=== PATIENT | female | born 1955 | race Caucasian/White ===

== ENCOUNTER 2024-07-31 13:10 | Inpatient (IN) | payer MEDICARE, MEDICAID, SELFPAY ==
--- NOTE | 2024-07-30 21:28 | ECHOD_ITS ---
Reason For Study: CHF Procedure This was a 2D Doppler, Color Flow transthoracic echocardiogram. Exam performed portable in patient room. The exam was abbreviated due to the COVID 19 protocol. Left Ventricle Normal left ventricle. Left ventricular systolic function is normal. The left ventricular ejection fraction is 65 %. No regional wall motion abnormalities noted. Right Ventricle Normal RV size. Normal systolic function. Atria Normal left atrium. Normal right atrium. Mitral Valve There is mild mitral annular calcification. Tricuspid Valve Normal tricuspid valve. Mild to moderate (1-2+) tricuspid valve insufficiency. Pulmonary artery systolic pressure is 45 mmHg. Aortic Valve Trisinus/trileaflet aortic valve. Moderate focal aortic valve calcification. Pulmonic Valve Normal pulmonic valve. Great Vessels Normal aortic root. The pulmonary artery is normal size. The inferior vena cava is dilated. Pericardium/Pleural No pericardial effusion. MMode/2D Measurements & Calculations LVIDd: 4.5 cm IVSd: 1.1 cm LAV(MOD-bp): 46.1 ml LVIDs: 3.2 cm LVPWd: 1.2 cm LAV(MOD-bp) Indexed: 28.0 ml/m2 FS: 29.3 % LAV(MOD-sp2): 48.7 ml LAV(MOD-sp4): 42.1 ml SV(MOD-sp4): 54.4 ml SV(sp4-el): 57.2 ml LVAd ap4: 27.2 cm2 LVLd ap4: 7.6 cm EDV(MOD-sp4): 79.8 ml EDV(sp4-el): 82.6 ml LVAs ap4: 13.4 cm2 LVLs ap4: 6.0 cm ESV(MOD-sp4): 25.4 ml ESV(sp4-el): 25.4 ml EF(MOD-sp4): 68.2 % EF(sp4-el): 69.3 % LA A4 area: 17.6 cm2 RA A4 area: 17.4 cm2 Doppler Measurements & Calculations TR max vanessa: 304.5 cm/sec TR max P.1 mmHg ECHO/Echo Complete Interpretation Summary Normal left ventricle. Left ventricular systolic function is normal. The left ventricular ejection fraction is 65 %. Pulmonary artery systolic pressure is 45 mmHg. Ordering Physician: eGeta Lynn Referring Physician: Zuhair Trinh Performed By: Rita Kaye RCS
--- NOTE | 2024-07-30 21:48 | PCM.HP.STD ---
HPI - General General Date of Admission: 07/30/24 Date of Service: 07/30/24 Chief Complaint: Confusion. HPI Narrative The patient is a 69 y/o F w/ PMHx: Hypothyroidism, CAD s/p CABG 04/2022 and PCI potentially x 2, HFpEF, Hypothyroidism, Anxiety and Depression, COPD w/ Chronic Hypoxic Respiratory Failure (4L NC) Pulmonary HTN, HTN, HLD, Hepatic cirrhosis, CKD IIIb (reported facility prior baseline Cr 1.2) admitted to OSH on 07/27/24 following syncopal event with several days of nausea, emesis and fatigue with 1 day of eventual outside facility ED presentation no witnessed syncopal episode fortunately caught by another individual with no trauma to the head but no recollection per patient of any prodrome or what occurred as well as reported abnormal labs prompting eventual ED evaluation. Patient endorsed lightheadedness, dizziness as well as ongoing nausea in addition to constipation on a normal basis. She also reportedly eventually noted that she been having maroon-colored stools for multiple days. Patient note had recently been discharged 07/22/2024 from that same facility secondary to treatment for acute on chronic respiratory failure secondary to heart failure exacerbation discharged on Bumex at that time with during that prior admission EGD with gastritis and portal gastropathy noted with GI and cardiology evaluations at that time also. Initially upon outside facility ED evaluation blood pressures were reportedly low with systolics in the 90s with CBC at that time with WBC 13.4, hemoglobin 7.9 which is decreased from 10.2 on 07/25/2024, platelet 248, CMP with sodium 130, serum potassium 3.1, bicarb 40, BUN/creatinine 70/1.69, troponin 21, T. bili 3.50, negative COVID-19/influenza/RSV, chest x-ray with persistent bilateral basilar atelectasis with a positive Hemoccult in the ED with a type and screen as well as cross with 1 unit PRBC ordered at that time. EKG was repeated and upon repeat there were noted new ST segment depressions in the precordial leads therefore patient was admitted that time for ongoing evaluation. Patient had repeat EGD 07/28/2024 which revealed chronic gastritis with biopsy obtained and colonoscopy performed 07/29/2024 within normal colon with no evidence of any bleeding etiology. Patient reportedly had an ammonia level that was elevated and had been also started on lactulose. Patient mental status reportedly was improved per records from outside facility. Patient acute kidney injury was treated with hold on nephrotoxic medication and hydration. Patient discharged from their facility to be transitioned [facility] with diagnoses including acute kidney injury on CKD stage IIIb secondary to likely significant diuresis with recent presentation to their facility with heart failure exacerbation with creatinine at discharge reportedly 1.66, renal ultrasound unremarkable, nephrology evaluated patient there and they felt she was euvolemic with Bumex held and judicious hydration administered, acute hepatic encephalopathy with elevated ammonia upon admission of 111 requiring lactulose administration, acute on chronic anemia secondary to GI bleed although source was not obtained but guaiac was positive and there was evidence of gastritis with required PRBC transfusion per records of 2 units with discharge hemoglobin 8.9 with hold on Eliquis and aspirin therapy. Additional labs noted from review of [facility] outside records included 07/30/2024 labs magnesium 3.0, phosphorus 3.8, ammonia 15, BMP with sodium 153, potassium 4.1, chloride 116, CO2 33, anion gap 8.1, BUN/creatinine 65/1.55, glucose 176, GFR 36, calcium 9.1 with adjusted calcium 10.3, CBC with WBC 19.9, hemoglobin 8.9, MCV 97.3, platelet 207 with left shift, iron 49 low normal, TIBC 253 low normal, iron saturation 19% noted to be low, ferritin 318.5 noted to be elevated, vitamin B12 1989 noted to be elevated, folic acid 5.8 noted to be low normal. Lab trending prior to this included on07/28/2024 liver profile with AST/ALT 92/43, alk phos 104, total bilirubin 5.60, direct bilirubin 2.30, total protein 5.3, albumin 2.7, sodium 133, potassium 3.9, chloride 87, CO2 37, anion gap 12.9, BUN/creatinine 87/2.0, GFR 26. Also noted records including 07/28/2024 urinalysis with slightly cloudy appearing urine, glucose greater than 500, leukocyte urine large, urine urobilinogen and 2, urine WBCs 21-50 however in records there is no obvious listing of bacteria level and no evidence of any urine culture performed, 07/28/2024 random urine sodium less than 5, random urine potassium 46, random urine chloride 15, urine urea nitrogen random 538. 07/27/2024 hemoglobin A1c noted to be 5.0%. Also 07/28/2024 chest x-ray had worsening bibasilar opacities with questionable infiltrate versus atelectasis. Patient transitioned to [facility] as direct admission per family request as daughter lives in this area and wants her care to be local. She was also concerned that her mother was still confused and concerned also for additional possibly infectious process. [facility] Medical History (Updated 07/30/24 @ 19:[address] Geeta Lynn MD) (HFpEF) heart failure with preserved ejection fraction Anemia of chronic disease History of GI bleed PAF (paroxysmal atrial fibrillation) CAD (coronary artery disease) Chronic hypoxic respiratory failure, on home oxygen therapy COPD (chronic obstructive pulmonary disease) Former tobacco use Hypothyroidism Anxiety and depression Hepatic cirrhosis HLD (hyperlipidemia) HTN (hypertension) Chronic anemia Stage 3b chronic kidney disease Allergy/AdvReac Type Severity Reaction Status Date / Time sulfamethoxazole (From Allergy Mild Hives Verified 07/30/24 19:58 Bactrim) trimethoprim (From Bactrim) Allergy Mild Hives Verified 07/30/24 19:58 Family History (Updated 07/30/24 @ 19:[address] Geeta Lynn MD) Mother Diabetes Hypertension Heart disease CVA (cerebral vascular accident) Father Diabetes Hypertension Heart disease Uncle Kidney disease Surgical History (Updated 07/30/24 @ 20:[address] Geeta Lynn MD) History of hernia repair History of coronary artery stent placement S/P CABG (coronary artery bypass graft) Social History (Updated 07/30/24 @ 20:[address] Geeta Lynn MD) household members: none housing: long-term Smoking Status: Former smoker how long ago did patient quit smoking: Quit ~ 14 years ago, smoking 0.5-1/2 ppd since 14 years old until quit. alcohol intake: never substance use type: does not use Assessment & Plan Assessment/Plan PLAN: Plan The patient is a 69 y/o F w/ PMHx: Hypothyroidism, CAD s/p CABG 04/2022 and PCI potentially x 2, HFpEF, Hypothyroidism, Anxiety and Depression, COPD w/ Chronic Hypoxic Respiratory Failure (4L NC) Pulmonary HTN, HTN, HLD, Hepatic cirrhosis, CKD IIIb (reported facility prior baseline Cr 1.2) admitted to OSH on 07/27/24 following syncopal event with several days of nausea, emesis and fatigue with 1 day of eventual outside facility ED presentation no witnessed syncopal episode fortunately caught by another individual with no trauma to the head but no recollection per patient of any prodrome w/ extensive hospitalization with acute hepatic encephalopathy with liver cirrhosis w/ hyperbilirubinemia, DENILSON on CKD stage IIIb, ABLA on chronic anemia/Fe deficiency anemia/AOCD secondary to GI bleed w/ gastritis only noted on upper endoscopy/unremarkable lower scope with 2 u PRBC administration as well as incidentally noted ST depressions in the precordial leads with family request for transfer to [facility] as direct for her ongoing evaluation and care on 07/30/24. or what occurred as well as reported abnormal labs prompting eventual ED evaluation. Patient endorsed lightheadedness, dizziness as well as ongoing nausea in addition to constipation on a normal basis. She also reportedly eventually noted that she been having maroon-colored stools for multiple days. Patient note had recently been discharged 07/22/2024 from that same facility secondary to treatment for acute on chronic respiratory failure secondary to heart failure exacerbation discharged on Bumex at that time with during that prior admission EGD with gastritis and portal gastropathy noted with GI and cardiology evaluations at that time also. Initially upon outside facility ED evaluation blood pressures were reportedly low with systolics in the 90s with CBC at that time with WBC 13.4, hemoglobin 7.9 which is decreased from 10.2 on 07/25/2024, platelet 248, CMP with sodium 130, serum potassium 3.1, bicarb 40, BUN/creatinine 70/1.69, troponin 21, T. bili 3.50, negative COVID-19/influenza/RSV, chest x-ray with persistent bilateral basilar atelectasis with a positive Hemoccult in the ED with a type and screen as well as cross with 1 unit PRBC ordered at that time. EKG was repeated and upon repeat there were noted new ST segment depressions in the precordial leads therefore patient was admitted that time for ongoing evaluation. Patient had repeat EGD 07/28/2024 which revealed chronic gastritis with biopsy obtained and colonoscopy performed 07/29/2024 within normal colon with no evidence of any bleeding etiology. Patient reportedly had an ammonia level that was elevated and had been also started on lactulose. Patient mental status reportedly was improved per records from outside facility. Patient acute kidney injury was treated with hold on nephrotoxic medication and hydration. Patient discharged from their facility to be transitioned [facility] with diagnoses including acute kidney injury on CKD stage IIIb secondary to likely significant diuresis with recent presentation to their facility with heart failure exacerbation with creatinine at discharge reportedly 1.66, renal ultrasound unremarkable, nephrology evaluated patient there and they felt she was euvolemic with Bumex held and judicious hydration administered, acute hepatic encephalopathy with elevated ammonia upon admission of 111 requiring lactulose administration, acute on chronic anemia secondary to GI bleed although source was not obtained but guaiac was positive and there was evidence of gastritis with required PRBC transfusion per records of 2 units with discharge hemoglobin 8.9 with hold on Eliquis and aspirin therapy. Additional labs noted from review of [facility] outside records included 07/30/2024 labs magnesium 3.0, phosphorus 3.8, ammonia 15, BMP with sodium 153, potassium 4.1, chloride 116, CO2 33, anion gap 8.1, BUN/creatinine 65/1.55, glucose 176, GFR 36, calcium 9.1 with adjusted calcium 10.3, CBC with WBC 19.9, hemoglobin 8.9, MCV 97.3, platelet 207 with left shift, iron 49 low normal, TIBC 253 low normal, iron saturation 19% noted to be low, ferritin 318.5 noted to be elevated, vitamin B12 1989 noted to be elevated, folic acid 5.8 noted to be low normal. Lab trending prior to this included on07/28/2024 liver profile with AST/ALT 92/43, alk phos 104, total bilirubin 5.60, direct bilirubin 2.30, total protein 5.3, albumin 2.7, sodium 133, potassium 3.9, chloride 87, CO2 37, anion gap 12.9, BUN/creatinine 87/2.0, GFR 26. Also noted records including 07/28/2024 urinalysis with slightly cloudy appearing urine, glucose greater than 500, leukocyte urine large, urine urobilinogen and 2, urine WBCs 21-50 however in records there is no obvious listing of bacteria level and no evidence of any urine culture performed, 07/28/2024 random urine sodium less than 5, random urine potassium 46, random urine chloride 15, urine urea nitrogen random 538. 07/27/2024 hemoglobin A1c noted to be 5.0%. Also 07/28/2024 chest x-ray had worsening bibasilar opacities with questionable infiltrate versus atelectasis.
--- NOTE | 2024-07-30 21:59 | PN.HOSP_ITS ---
Hospitalist Note OSH RECORDS REVIEW SUMMARY OF RECENT HOSPITALIZATION: The patient is a 69 y/o F w/ PMHx: Hypothyroidism, CAD s/p CABG 04/2022 and PCI potentially x 2, HFpEF, Hypothyroidism, Anxiety and Depression, COPD w/ Chronic Hypoxic Respiratory Failure (4L NC) Pulmonary HTN, HTN, HLD, Hepatic cirrhosis, CKD IIIb (reported facility prior baseline Cr 1.2) admitted to OSH on 07/27/24 following syncopal event with several days of nausea, emesis and fatigue with 1 day of eventual outside facility ED presentation no witnessed syncopal episode f ortunately caught by another individual with no trauma to the head but no recollection per patient of any prodrome or what occurred as well as reported abnormal labs prompting eventual ED evaluation. Patient endorsed lightheadedness, dizziness as well as ongoing nausea in addition to constipation on a normal basis. She also reportedly eventually noted that she been having maroon-colored stools for multiple days. Patient note had recently been discharged 07/22/2024 from that same facility secondary to treatment for acute on chronic respiratory failure secondary to heart failure exacerbation discharged on Bumex at that time with during that prior admission EGD with gastritis and portal gastropathy noted with GI and cardiology evaluations at that time also. Initially upon outside facility ED evaluation blood pressures were reportedly low with systolics in the 90s with CBC at that time with WBC 13.4, hemoglobin 7.9 which is decreased from 10.2 on 07/25/2024, platelet 248, CMP with sodium 130, serum potassium 3.1, bicarb 40, BUN/creatinine 70/1.69, troponin 21, T. bili 3.50, negative COVID-19/influenza/RSV, chest x-ray with persistent bilateral basilar atelectasis with a positive Hemoccult in the ED with a type and screen as well as cross with 1 unit PRBC ordered at that time. EKG was repeated and upon repeat there were noted new ST segment depressions in the precordial leads therefore patient was admitted that time for ongoing evaluation. Patient had repeat EGD 07/28/2024 which revealed chronic gastritis with biopsy obtained and colonoscopy performed 07/29/2024 within normal colon with no evidence of any bleeding etiology. Patient reportedly had an ammonia level that was elevated and had been also started on lactulose. Patient mental status reportedly was improved per records from outside facility. Patient acute kidney injury was treated with hold on nephrotoxic medication and hydration. Patient discharged from their facility to be transitioned [facility] with diagnoses including acute kidney injury on CKD stage IIIb secondary to likely significant diuresis with recent presentation to their facility with heart failure exacerbation with creatinine at discharge reportedly 1.66, renal ultrasound unremarkable, nephrology evaluated patient there and they felt she was euvolemic with Bumex held and judicious hydration administered, acute hepatic encephalopathy with elevated ammonia upon admission of 111 requiring lactulose administration, acute on chronic anemia secondary to GI bleed although source was not obtained but guaiac was positive and there was evidence of gastritis with required PRBC transfusion per records of 2 units with discharge hemoglobin 8.9 with hold on Eliquis and aspirin therapy. Additional labs noted from review of [facility] outside records included 07/30/2024 labs magnesium 3.0, phosphorus 3.8, ammonia 15, BMP with sodium 153, potassium 4.1, chloride 116, CO2 33, anion gap 8.1, BUN/creatinine 65/1.55, glucose 176, GFR 36, calcium 9.1 with adjusted calcium 10.3, CBC with WBC 19.9, hemoglobin 8.9, MCV 97.3, platelet 207 with left shift, iron 49 low normal, TIBC 253 low normal, iron saturation 19% noted to be low, ferritin 318.5 noted to be elevated, vitamin B12 1989 noted to be elevated, folic acid 5.8 noted to be low normal. Lab trending prior to this included on07/28/2024 liver profile with AST/ALT 92/43, alk phos 104, total bilirubin 5.60, direct bilirubin 2.30, total protein 5.3, albumin 2.7, sodium 133, potassium 3.9, chloride 87, CO2 37, anion gap 12.9, BUN/creatinine 87/2.0, GFR 26. Also noted records including 07/28/2024 urinalysis with slightly cloudy appearing urine, glucose greater than 500, leukocyte urine large, urine urobilinogen and 2, urine WBCs 21-50 however in records there is no obvious listing of bacteria level and no evidence of any urine culture performed, 07/28/2024 random urine sodium less than 5, random urine potassium 46, random urine chloride 15, urine urea nitrogen random 538. 07/27/2024 hemoglobin A1c noted to be 5.0%. Also 07/28/2024 chest x-ray had worsening bibasilar opacities with questionable infiltrate versus atelectasis. Patient transition request made by patient daughter for [facility] as direct admission as daughter lives in this area and wants her care to be local. She was also concerned that her mother was still confused and concerned also for additional possibly infectious process. Initially patient request for transfer at approximately noon with planned pickup at 8 pm; however, OSH called at 10:00 pm and notified PCU staff that the patient transport would be delayed and patient likely would not be transported until 07/31/24 8:30 am. Discussed with PCU staff and they noted intention to contact patient daughter.
[2024-07-31 11:46] VITALS: BMI 35.4
[2024-07-31 12:00] VITALS: BP 118/76; PULSE 62; RESP 16; TEMP 36.4; O2SAT 93
--- NOTE | 2024-07-31 13:07 | PCM.HP.STD ---
HPI - General General Date of Admission: 07/31/24 Date of Service: 07/31/24 Chief Complaint: Confusion, disorientation and encephalopathic. Direct admit from [facility] HPI Narrative ABRAHAN LOOMIS, is a 69 F is being directly admitted from [facility] for further management of altered mental status/encephalopathy. She was admitted there on 07/27/2024 night for confusion altered mental status/syncopal episode with abnormal lab values. For last several days he also had nausea and several vomiting episodes. Prior to that, she was admitted for about 3 weeks same hospital for hypervolemia, jaundice and confusion cirrhosis and was vigorously diuresed to the point that dialysis was anticipated but she started making urine. She was getting lactulose. Her daughter is Misa who is RN, here about 2 years ago. Patient is drowsy but she wakes up and has limited comprehension but interacts and answers simple question. No acute shortness of breath. As per the daughter, she did not had paracentesis but was diuresed admission above. Labs are ordered. Twelve-lead EKG shows heart rate 62/min, QTc send 43 ms. Chest x-ray shows bibasilar opacity probably atelectasis. No imaging to individually reviewed. Ultrasound retroperitoneal shows within normal range. Small amount of ascites. Labs reviewed. She has a history of chronic severe diastolic heart failure, chronic respiratory failure on 4 L home oxygen, CAD status post CABG 2 years ago [facility] Medical History (HFpEF) heart failure with preserved ejection fraction Anemia of chronic disease History of GI bleed PAF (paroxysmal atrial fibrillation) CAD (coronary artery disease) Chronic hypoxic respiratory failure, on home oxygen therapy COPD (chronic obstructive pulmonary disease) Former tobacco use Hypothyroidism Anxiety and depression Hepatic cirrhosis HLD (hyperlipidemia) HTN (hypertension) Chronic anemia Stage 3b chronic kidney disease Home Medications ?Medication ?Instructions ?Recorded ?Last Taken ?Type acetaminophen 325 mg capsule 650 mg PO Q12H PRN fever or pain 07/31/24 Unknown History albuterol sulfate 90 mcg/actuation 1 puff inhalation Q6H PRN copd 07/31/24 Unknown History aerosol inhaler apixaban 5 mg tablet (Eliquis) 5 mg PO BID 07/31/24 Unknown History aspirin 81 mg tablet,delayed 81 mg PO DAILY 07/31/24 Unknown History release (Adult Low Dose Aspirin) bumetanide 2 mg tablet 2 mg PO BID chf 07/31/24 Unknown History citalopram 20 mg tablet 20 mg PO DAILY 07/31/24 Unknown History empagliflozin 10 mg tablet 10 mg PO DAILY 07/31/24 Unknown History (Jardiance) ferrous fumarate 100 mg iron-vit C 1 tab PO QODAY supplement 07/31/24 Unknown History 300 mg-folic acid 1 mg tablet furosemide 40 mg tablet 40 mg PO BID 07/31/24 Unknown History ipratropium 0.5 mg-albuterol 3 mg 3 ml inhalation Q4H PRN sob 07/31/24 Unknown History (2.5 mg base)/3 mL nebulization soln levothyroxine 25 mcg tablet 25 mcg PO DAILY 07/31/24 Unknown History melatonin 5 mg capsule 5 mg PO QHS PRN PRN insomnia 07/31/24 Unknown History metoprolol tartrate 25 mg tablet 12.5 mg PO BID bp 07/31/24 Unknown History midodrine 10 mg tablet 10 mg PO TID hypotension 07/31/24 Unknown History nitroglycerin 0.4 mg sublingual 0.4 mg sublingual Q5M PRN chest 07/31/24 Unknown History tablet pain pantoprazole 40 mg tablet,delayed 40 mg PO DAILY 07/31/24 Unknown History release potassium chloride 20 mEq 20 meq PO DAILY 07/31/24 Unknown History tablet,extended release(part/cryst) (Klor-Con M) promethazine 25 mg tablet 25 mg PO Q8H PRN PRN n/v 07/31/24 Unknown History simvastatin 40 mg tablet 40 mg PO QHS 07/31/24 Unknown History Allergy/AdvReac Type Severity Reaction Status Date / Time sulfamethoxazole (From Allergy Mild Hives Verified 07/30/24 19:58 Bactrim) trimethoprim (From Bactrim) Allergy Mild Hives Verified 07/30/24 19:58 Family History Mother Diabetes Hypertension Heart disease CVA (cerebral vascular accident) Father Diabetes Hypertension Heart disease Uncle Kidney disease Surgical History History of hernia repair History of coronary artery stent placement S/P CABG (coronary artery bypass graft) Social History household members: none housing: [facility] Smoking Status: Former smoker how long ago did patient quit smoking: Quit ~ 14 years ago, smoking 0.5-1/2 ppd since 14 years old until quit. alcohol intake: never substance use type: does not use ROS ROS Narrative Patient mild drowsy and lethargic., ROS mainly collected from daughter and little from the patient Constitutional: Reports fatigue and weakness. No fever. HEENT: Reports systems reviewed and no addt'l complaints, except as documented Respiratory/Chest: Chronic dyspnea/shortness of breath on exertion CVS: History of CABG 2 years ago. CHF. Possible syncope Gastrointestinal: Denies acute but chronic nausea. Had recent vomiting. Diarrhea because of lactulose Genitourinary: CKD. Denies burning urination or new urinary tract symptoms Musculoskeletal: Denies acute joint pain or limited range of motion. No acute injury. Chronic arthritis Neurologic: Denies seizure-like symptoms. Encephalopathy skin: No ulcer. No rash Endocrinology: Reports systems reviewed and no addt'l complaints, except as documented Hematologic/Lymphatic: Reports systems reviewed and no addt'l complaints, except as documented Rest 14 ROS are negative except as mentioned in HPI Vital Signs Vital Signs Vital Signs: Weight Weight: 163 lb 9.328 oz Body Mass Index (BMI) 35.4 Physical Exam Narrative General: Awake. Wakes up and talks coherently. Oriented to place and person. Cooperative BMI 35.4 kg per square HEENT: Atraumatic, PERRLA, EOMI, Normocephalic Oral: Oral mucosa dry. No Gingival or Mucosal Lesions/ Ulcerations Neck: Supple, No JVD, Negative Carotid Bruits Chest wall/Lungs: Air entry diminished in bilateral lung bases. No crepitation/rhonchi Cardiovascular: Regular rate, Regular Rhythm, Normal S1, Normal S2, No M/G/R Abdomen: Bowel Sounds Present, Soft, Non Tender, Non-Distended clinically no significant ascites : No dysuria. No renal angle tenderness. No suprapubic tenderness. Extremities: Mild/minimal pedal edema, Capillary Refill Less than 3 Seconds Skin: No rashes, No breakdown Musculoskeletal: No Tenderness to Palpation of Joints or Extremities Neurological: Cranial nerves II-XII grossly intact, DTR 2+/4. No acute focal neurological deficit. Psych/Mental Status: Flat affect Assessment & Plan Assessment/Plan (1) Encephalopathy: PLAN: Plan This 68-year-old female being admitted for evaluation of altered mental status/acute encephalopathy from [facility]. 1. Acute on recurrent encephalopathy most likely hepatic/metabolic encephalopathy from recent diagnosis of decompensated cirrhosis: Patient was recently found to have cirrhosis with severe ascites, lower extremity edema in June 2024 and was aggressively diuresed as mentioned HPI. Currently swelling is well-controlled. Patient not on diuretic because of CKD. Labs ordered. Lactulose and Xifaxan. Hold sedating medications. Leukocytosis unclear but does not have particular focus of infection. May be minimal ascites as per imaging but no tenderness therefore doubt SBP. Infectious workup ordered. Previous EGD in [address] [place] [address] showed gastritis and PHG 2. 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 Patient does not have history of alcohol use as per the daughter. Probably CERVANTES related. Right upper quadrant sonogram with spleen ordered for Friday. 3. Chronic HFpEF, CAD status post CABG 2 years ago: BNP elevated. Chest x-ray ordered. EKG shows sinus rhythm. Patient does not have chest pain or acute cardiac event in the last 2 years after CABG. On baby aspirin continued 4. COPD with chronic hypoxic respiratory failure on 4 L of home oxygen: Oxygen therapy. DuoNeb as needed. Incentive spirometry and Pep. 5. Anemia of chronic disease/CKD: Iron workup reviewed consistent with anemia of chronic disease. B12 high. 6. Paroxysmal A-fib on Eliquis: Hold Eliquis. 7. Dyslipidemia: On simvastatin. 8. CKD stage IIIb: BUNs/creatinine 69/1.66. Hypokalemia K2.8: BMP stat ordered unclear how much potassium was replaced. Network Programmer has been consulted 9. Hypothyroidism: Abnormal thyroid function: TSH less than 0.5. Free T4 45. Repeat thyroid function ordered. 10. Anxiety and depression: On Celexa continued 07/30, labs show hypokalemia K2.8. BUN/creatinine 69/1.66. Glucose 170. Bicarb 36. Calcium 10.4. BNP elevated. ALT 43, AST 92, alkaline phosphatase 125. Total bili 4.3, direct bili 2.3. Albumin 2.5. Phosphorus 3.8. Fasting profile shows triglyceride 158, LDL 39. Iron workup shows anemia of chronic disease. B12 high about 2000. TSH low less than 0.5, free T45.58. A1c 5.0. CBC shows leukocytosis and 20,000. H&H 8.9/27.4%. Platelet count 207,000. Ammonia 37. Living will/advanced directive/end of life care: Patient does not have living will or advanced directive. She does not have POA but her daughter Misa WOO would be her POA. After discussion of benefits/risks procedures involved with full code, DNR CC arrest and DNR CC, the patient and her daughter opted for full code. Patient does want artificial life support including intubation, tube feed, ventilator and/chest compression, central venous catheter, vasopressor and DC shock if needed Total time spent in [id number] encounter in discussion of advanced directive 17 minutes. Charges/Coding Visit Charges Inpatient E&M: 46269 Init Hosp L3 Procedures Hospitalists Procedures: 02335 Advncd Care Plan 30 Min
--- NOTE | 2024-07-31 13:18 | RAD_ITS ---
STUDY: X-RAY CHEST REASON FOR EXAM: Female, 69 years old. SOB TECHNIQUE: AP portable COMPARISON: July 28, 2024 FINDINGS: There is less than optimal inspiratory effort and mild right lower lobe atelectasis or infiltrate and small left pleural effusion with left lower lobe atelectasis.. There is no demonstrated pleural abnormality. Postop change status post median sternotomy and CABG Borderline cardiomegaly. Normal mediastinum and noman. Normal visualized pulmonary arteries. Mildly calcified aortic arch and descending thoracic aorta. Normal visualized thoracic spine. Normal visualized ribs, clavicles, and shoulders. There is no demonstrated abnormality of the visualized soft tissue structures of the upper abdomen. RAD/Chest 1 View (Portable) IMPRESSION: Diminished inspiratory effort and mild right lower lobe atelectasis or infiltrate and small left pleural effusion with left lower lobe atelectasis Electronically Signed: Prabhakar Oreilly MD at 21:48 EDT ,
[2024-07-31] MEDS: Vancomycin HCl 1,750 MG in 0.9% Normal Saline (500mL Bag) 500 ML 250 MG IV (14:18)
--- NOTE | 2024-07-31 14:50 | NURSING ---
emergency documentation
[2024-07-31 14:57] LABS: Bacteria 0 SEEN /hpf (None Seen); Mucous, Urine 0 SEEN /hpf (<or=2+)
[2024-07-31 15:08] VITALS: O2SAT 93
--- NOTE | 2024-07-31 15:21 | PCM.CONS.R ---
Assessment & Plan Assessment/Plan (1) Hepatorenal syndrome: PLAN: This is 69 years old with liver cirrhosis who has developed hepatorenal syndrome while at [facility] couple weeks ago. Creatinine has been fluctuating with diuretics significantly and at 1 point she was heading toward dialysis. Now her renal function has improved, but blood pressure is still soft and she has got significant elevation in BUN. PLAN: Plan I would like to give her some albumin Add midodrine 5 mg every 8 hours Avoid hypotension and nephrotoxins HPI Consult Data Date of Consult: 07/31/24 HPI Narrative Reason for Consultation: Hepatorenal syndrome HPI Narrative: ABRAHAN LOOMIS, is a 69 F who presents with altered mental status. Prior to this admission patient has spent 22 days at [facility] where she was admitted with substantial fluid overload, congestive heart failure. At that time she was found to have liver failure and has developed acute elevation in BUN and creatinine and has been followed by nephrology. She was placed on midodrine, albumin and diuretics at that time and had substantial fluctuation in BUN/creatinine, occasionally creatinine was as high as 2.7. At 1 point decision has been made to proceed with renal replacement therapy but that was canceled. Nevertheless, she was successfully diuresed and discharged to rehab facility where she spent 6 days prior to coming over yesterday with altered mental status. She was diagnosed with hepatic encephalopathy and given lactulose with significant improvement of the mental status as of today. Her daughter is at bedside and tells me that compared to a month ago she has lost a significant amount of weight, but she was hypotensive at the rehab facility and actually had some orthostatic syncope x 2. She also not sure if the patient was discharged home on midodrine. Here she has BUN of 60 and creatinine 1.6 and that is significantly better than back at [place]. Electrolytes are fine. [facility] Medical History (HFpEF) heart failure with preserved ejection fraction Anemia of chronic disease History of GI bleed PAF (paroxysmal atrial fibrillation) CAD (coronary artery disease) Chronic hypoxic respiratory failure, on home oxygen therapy COPD (chronic obstructive pulmonary disease) Former tobacco use Hypothyroidism Anxiety and depression Hepatic cirrhosis HLD (hyperlipidemia) HTN (hypertension) Chronic anemia Stage 3b chronic kidney disease Home Medications ?Medication ?Instructions ?Recorded ?Last Taken ?Type acetaminophen 325 mg capsule 650 mg PO Q12H PRN fever or pain 07/31/24 Unknown History albuterol sulfate 90 mcg/actuation 1 puff inhalation Q6H PRN copd 07/31/24 Unknown History aerosol inhaler apixaban 5 mg tablet (Eliquis) 5 mg PO BID 07/31/24 Unknown History aspirin 81 mg tablet,delayed 81 mg PO DAILY 07/31/24 Unknown History release (Adult Low Dose Aspirin) bumetanide 2 mg tablet 2 mg PO BID chf 07/31/24 Unknown History citalopram 20 mg tablet 20 mg PO DAILY 07/31/24 Unknown History empagliflozin 10 mg tablet 10 mg PO DAILY 07/31/24 Unknown History (Jardiance) ferrous fumarate 100 mg iron-vit C 1 tab PO QODAY supplement 07/31/24 Unknown History 300 mg-folic acid 1 mg tablet furosemide 40 mg tablet 40 mg PO BID 07/31/24 Unknown History ipratropium 0.5 mg-albuterol 3 mg 3 ml inhalation Q4H PRN sob 07/31/24 Unknown History (2.5 mg base)/3 mL nebulization soln levothyroxine 25 mcg tablet 25 mcg PO DAILY 07/31/24 Unknown History melatonin 5 mg capsule 5 mg PO QHS PRN PRN insomnia 07/31/24 Unknown History metoprolol tartrate 25 mg tablet 12.5 mg PO BID bp 07/31/24 Unknown History midodrine 10 mg tablet 10 mg PO TID hypotension 07/31/24 Unknown History nitroglycerin 0.4 mg sublingual 0.4 mg sublingual Q5M PRN chest 07/31/24 Unknown History tablet pain pantoprazole 40 mg tablet,delayed 40 mg PO DAILY 07/31/24 Unknown History release potassium chloride 20 mEq 20 meq PO DAILY 07/31/24 Unknown History tablet,extended release(part/cryst) (Klor-Con M) promethazine 25 mg tablet 25 mg PO Q8H PRN PRN n/v 07/31/24 Unknown History simvastatin 40 mg tablet 40 mg PO QHS 07/31/24 Unknown History Allergy/AdvReac Type Severity Reaction Status Date / Time sulfamethoxazole (From Allergy Mild Hives Verified 07/30/24 19:58 Bactrim) trimethoprim (From Bactrim) Allergy Mild Hives Verified 07/30/24 19:58 Family History Mother Diabetes Hypertension Heart disease CVA (cerebral vascular accident) Father Diabetes Hypertension Heart disease Uncle Kidney disease Surgical History History of hernia repair History of coronary artery stent placement S/P CABG (coronary artery bypass graft) Social History household members: none housing: long term Smoking Status: Former smoker how long ago did patient quit smoking: Quit ~ 14 years ago, smoking 0.5-1/2 ppd since 14 years old until quit. alcohol intake: never substance use type: does not use ROS ROS Narrative 14 point comprehensive system review has been attempted and it was difficult due to patient's altered mental status, daughter assisted me and all positives as well as pertinent negatives are reflected in the H&P Review of Systems ROS Unobtainable: due to encephalopathy Physical Exam Const no apparent distress and average body habitus General Appearance: well developed Orientation / Consciousness: oriented to person HEENT normocephalic Head and Scalp: atraumatic Neck no lymphadenopathy Resp no use of accessory muscles and clear to auscultation bilaterally Cardio regular rate GI non-tender and non-distended Auscultation: normoactive bowel sounds Skin no rashes or lesions noted General Skin Exam: ecchymosis Neuro Sensorium / Orientation: somnolent Psych cooperative Memory / Cognition: cognition impaired Medical Records Data Medical Nutrition Assessment Dietitian: Malnutrition Criteria Met Start: 07/31/24 14:51 Freq: Status: Active Protocol: Document 07/31/24 14:51 SLA (Rec: 07/31/24 14:51 SLA [id number]) Nutrition Malnutrition Evidence of Malnutrition Exists Yes Malnutrition (severe): Acute Illness/Injury Evidenced By Suboptimal Energy Intake ( Severe),Weight Loss (Severe) Clinical Problem Acute Disease or Injury Related Malnutrition Etiology related to acute illness and inadequate energy intake Signs/Symptoms as evidenced by 14.1% unintended wt loss and po intake meeting <75% of est nutritional needs x 2 months Status Active Problem Recommendation Dietitian Recommendations/Changes Will liberalize diet to regular no added salt w/ 4 oz chocolate CIB w/ meals d/t signs and symptoms of malnutrition Rec appetite stimulant r/t hx of poor 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
[2024-07-31] MEDS: Piperacil/Tazobactam 3.375 GM in 0.9% Normal Saline (50mL MB+) 50 ML IV ×2 (15:56→21:54)
[2024-07-31] MEDS: 0.9% Saline Lock 10 ML Syringe IV ×2 (15:59→21:43)
[2024-07-31] MEDS: Lactulose 20 GM/30 ML UDC 10 GM PO ×2 (16:01→21:48)
[2024-07-31 16:05] LABS: Hematocrit 29.4 % (37-47); Hemoglobin 8.5 g/dL (12.0-15.0); Mean Corp Hgb Conc 28.9 g/dL (32-36); Mean Corpuscular Hgb 31.5 pg (27.0-32.0); Mean Corpuscular Volume 108.9 fL (81-99); Mean Platelet Vol. 10.6 fl (6.2-12.0); POSITIVE MORPHOLOGY YES; Platelet Count 240 K/mm3 (150-450); RBC Distribution Width CV 29.7 % (11.6-14.6)
[2024-07-31 16:26] LABS: International Normalized Ratio 2.1; Prothrombin Time (Protime)PT. 23.7 SECONDS (11.7-14.9)
[2024-07-31 16:27] LABS: Partial Thromboplast Time 36.1 Seconds (24.1-36.2)
[2024-07-31 16:41] LABS: Color, Urine Yellow (Yellow); Glucose, Dipstick 1000 mg/dl (Normal); Ketone-Dipstick Negative (Negative); Leukocyte Esterase-Dipstick 100 /ul (Negative); Nitrite-Dipstick Negative (Negative); Occult Blood-Urine Negative /ul (Negative); Protein-Dipstick Negative (Negative); Urine Bilirubin Dipstick Negative (Negative); Urine Clarity Sl. Cloudy (Clear); Urine Urobilinogen Normal (Normal)
[2024-07-31 16:43] LABS: RBC Distribution Width SD 112.6 fl (35.1-43.9)
[2024-07-31 16:45] LABS: Scan Indicated on CBC? Y/N YES- FLAGS NOTED
--- NOTE | 2024-07-31 16:46 | PHA.PHARE_ITS ---
Consult Antibiotic Management Pharmacy has been consulted to manage selected antibiotic: Vancomycin Type of Intervention Type of Consult: New start Dosing Weight Weight used for dosin kg Estimated Creatinine Clearance Estimated Creatinine Clearance: 30ml/min Goal Trough Goal Trough: 15-20 mcg/mL Pharmacy Plan for Drug Dosing Pharmacy Plan for Drug Dosing: NEW START IV VANCOMYCIN Consulting Physician: Dr. Lynn Indication: Goal Trough: 15-20 SrCr: 1.55 (from 07/30 from outside facility) CrCl: 29.9ml/min Comments: Called [facility] in [place], pt had not received antibiotics at that facility. pt then received a 1750mg (25mg/kg) x1 loading dose on 07/31/24 at 1418 at [facility] Vancomycin Dose: based on patients weight and renal function, recommend an initial dose of 750mg q24h starting 08/01/24 at 1400. trough prior to the 3rd dose Pending Level: 08/02/24 at 1330 Pharmacy Service will continue to monitor and adjust dosing as required. Follow-Up Labs Follow-Up Labs: Trough: Vancomycin (08/02/24 at 1330)
[2024-07-31 16:58] LABS: ALB/GLOB Ratio 0.8 RATIO (0.9-2.4); AST(SGOT) 92 U/L (15-37); Alanine Aminotransfer ALT/SGPT 43 U/L (13-56); Albumin, Serum 2.4 g/dL (3.2-5.0); Alkaline Phosphatase 125 U/L (45-117); Anion Gap 4 (5-15); BUN 61 mg/dL (7-18); BUN/Creat Ratio 41.2 RATIO (10-20); Calcium,Total 8.8 mg/dL (8.5-10.1); Chloride 120 mmol/L (98-107); Creatinine, Serum 1.48 mg/dL (0.55-1.02); EST Glomerular Filtration Rate 37 mL/min (>60); Est Glom Filt Rate - Afr Amer 45 mL/min (>60); Estimated Creatinine Clearance 31.36 ml/min; Globulin 2.9 g/dL (2.2-4.2); Glucose 212 mg/dL (74-106); Magnesium 2.9 mg/dL (1.6-2.6); Potassium 4.5 mmol/L (3.5-5.1); Protein, Total 5.3 g/dL (6.4-8.2); Sodium Level 153 mmol/L (136-145)
[2024-07-31 17:17] LABS: Phosphorus 3.2 mg/dL (2.5-4.9)
[2024-07-31] MEDS: Midodrine HCl 5 MG Tablet 10 MG PO (17:35)
[2024-07-31] MEDS: Albumin Human 25% (100 mL) 25 GM/100 ML BAG IV ×2 (17:35→23:45)
[2024-07-31 17:46] VITALS: BP 122/49; PULSE 62; RESP 14; TEMP 36.4; O2SAT 95
[2024-07-31 18:03] LABS: Hyaline Cast 5-10 SEEN /lpf (0-5); Squamous Epithelial Cells - UA 0-5 SEEN /hpf (5-10); White Blood Cells 10-25 SEEN /hpf (0-5)
[2024-07-31 18:05] LABS: Red Blood Cells-Urine 0-5 SEEN /hpf (0-5); Yeast-Urine 1+ /hpf (None Seen)
[2024-07-31 18:06] LABS: BNP,B-Type NATRIURETIC PEPTIDE 341.1 pg/mL (0-100)
[2024-07-31 18:06] LABS: Transitional Epithelial - Ur 0-5 SEEN /hpf (0-5)
[2024-07-31] MEDS: Budesonide Respules 0.5 MG/2 ML AMPUL.NEB. INHALATION (19:41)
[2024-07-31] MEDS: Ipratropium/Albuterol Sulfate 3 ML AMPUL.NEB INHALATION (19:41)
[2024-07-31 19:42] VITALS: PULSE 69; RESP 18; O2SAT 93
[2024-07-31 19:52] LABS: Prothrombin Time (Protime)PT. 22.9 SECONDS (11.7-14.9)
[2024-07-31 21:40] VITALS: BP 106/48; PULSE 60; RESP 18; TEMP 36.4; O2SAT 95
[2024-07-31] MEDS: dexAMETHasone 10 MG/ML Vial 6 MG IV (21:43)
[2024-07-31] MEDS: Menthol/Lanolin/Calamine/Znox 113 GM Tube 1 APPLIC TOPICAL (21:45)
[2024-07-31] MEDS: Atorvastatin Calcium 20 MG Tablet PO (21:46)
[2024-07-31] MEDS: Clotrimazole/Betamethasone 1 Tube 1 APPLIC TOPICAL (21:47)
[2024-07-31] MEDS: rifAXIMin 550 MG Tablet PO (21:49)
[2024-07-31 22:55] VITALS: BP 106/48; PULSE 60
[2024-08-01] VITALS (18 sets, daily range): BP systolic 88–125; BP diastolic 32–61; PULSE 54–68; RESP 12–18; TEMP 35.9–36.4; O2SAT 90–100; BMI 35.6
[2024-08-01] MEDS: Levothyroxine 25 MCG TABLET PO (06:01)
[2024-08-01] MEDS: Lactulose 20 GM/30 ML UDC 10 GM PO ×2 (06:02→15:09)
[2024-08-01] MEDS: Piperacil/Tazobactam 3.375 GM in 0.9% Normal Saline (50mL MB+) 50 ML IV (06:07)
[2024-08-01] MEDS: Budesonide Respules 0.5 MG/2 ML AMPUL.NEB. INHALATION (06:48)
[2024-08-01] MEDS: Ipratropium/Albuterol Sulfate 3 ML AMPUL.NEB INHALATION (06:48)
[2024-08-01 07:21] LABS: Absolute Lymphocyte Count 0.79 X10^3/uL (0.83-4.51); Absolute Neutrophil Count 9.8 X10^3/uL (2.0-7.7); Basophil# 0.02 X10^3/uL; Basophil% 0.2 % (0-1); Eosinophil# 0.03 X10^3/uL; Eosinophils% 0.3 % (0-5); Hematocrit 25.5 % (37-47); Hemoglobin 7.4 g/dL (12.0-15.0); Lymphocyte # 0.79 X10^3/ul (0.83-4.51); Lymphocyte % 7.1 % (19-41); Mean Corpuscular Hgb 31.5 pg (27.0-32.0); Mean Corpuscular Volume 108.5 fL (81-99); Mean Platelet Vol. 10.7 fl (6.2-12.0); Monocyte# 0.35 X10^3/uL; Monocyte% 3.2 % (0-10); NRBC Flagged by Analyzer 0.7 % (0-5); Neutrophil # 9.78 X10^3/uL (2.7-7.7); Neutrophil % 88.3 % (47-70); POSITIVE MORPHOLOGY YES; Platelet Count 184 K/mm3 (150-450); RBC Distribution Width CV 29.2 % (11.6-14.6); Red Blood Count 2.35 M/mm3 (4.2-5.4); White Blood Count 11.1 K/mm3 (4.4-11.0)
[2024-08-01 07:34] LABS: International Normalized Ratio 2.1; Prothrombin Time (Protime)PT. 23.7 SECONDS (11.7-14.9)
[2024-08-01 07:47] LABS: Differential Indicated SCAN CRITERIA MET
[2024-08-01 07:56] LABS: ALB/GLOB Ratio 1.2 RATIO (0.9-2.4); AST(SGOT) 76 U/L (15-37); Alanine Aminotransfer ALT/SGPT 38 U/L (13-56); Albumin, Serum 3.1 g/dL (3.2-5.0); Alkaline Phosphatase 113 U/L (45-117); Anion Gap 7 (5-15); BUN 59 mg/dL (7-18); BUN/Creat Ratio 36.9 RATIO (10-20); Bilirubin, Direct 1.77 mg/dL (0.00-0.30); Chloride 117 mmol/L (98-107); EST Glomerular Filtration Rate 34 mL/min (>60); Est Glom Filt Rate - Afr Amer 41 mL/min (>60); Estimated Creatinine Clearance 29.13 ml/min; Globulin 2.6 g/dL (2.2-4.2); Glucose 203 mg/dL (74-106); Protein, Total 5.7 g/dL (6.4-8.2); Sodium Level 151 mmol/L (136-145); Thyroid Stim Hormone (TSH) < 0.005 uIU/mL (0.358-3.740)
[2024-08-01 09:08] LABS: Anisocytosis 2+; Differential Comment SCANNED; Macrocytosis 1+; Microcytosis 1+
--- NOTE | 2024-08-01 09:43 | PN.RENAL_ITS ---
Subjective Subjective Follow-up on acute kidney injury. Patient is feeling a little bit better, but remains somewhat somnolent, has received some albumin, blood pressure is better. Objective Data Objective Data Vital Signs: Vital Signs Temp Pulse Resp BP Pulse Ox O2 Del Method O2 Flow Rate 96.8 F L 64 16 125/52 H 93 Nasal Cannula 6 08/01/24 09:10 08/01/24 09:10 08/01/24 09:10 08/01/24 09:10 08/01/24 09:10 08/01/24 09:10 08/01/24 09:10 Oxygen Flow Rate (L/min) 6 Oxygen Delivery Method Nasal Cannula Weight: 74.8 kg Body Mass Index (BMI) 35.6 Intake & Output: Intake and Output for Last 24 Hours 07/30/24 07/31/24 08/01/24 23:59 23:59 23:59 Intake Total 1035 / 1035 150 / 150 Output Total 1200 / 1200 350 / 350 Balance -165 / -165 -200 / -200 Medical Nutrition Assessment Dietitian: Malnutrition Criteria Met Start: 07/31/24 14:51 Freq: Status: Active Protocol: Document 07/31/24 14:51 DAY (Rec: 07/31/24 14:51 SLA [id number]) Nutrition Malnutrition Evidence of Malnutrition Exists Yes Malnutrition (severe): Acute Illness/Injury Evidenced By Suboptimal Energy Intake ( Severe),Weight Loss (Severe) Clinical Problem Acute Disease or Injury Related Malnutrition Etiology related to acute illness and inadequate energy intake Signs/Symptoms as evidenced by 14.1% unintended wt loss and po intake meeting <75% of est nutritional needs x 2 months Status Active Problem Recommendation Dietitian Recommendations/Changes Will liberalize diet to regular no added salt w/ 4 oz chocolate CIB w/ meals d/t signs and symptoms of malnutrition Rec appetite stimulant r/t 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 08/01/24 06:55 08/01/24 06:55 Labs: Laboratory Results - last 24 hr 07/30/24 21:37: PT 23.7 H, INR 2.1, APTT 36.1 07/31/24 13:17: PT 22.9 H, INR 2.0 07/31/24 14:15: Urine Color Yellow, Urine Clarity Sl. Cloudy, Urine pH 6.0, Ur Specific Thayne 1.010, Urine Protein Negative, Urine Glucose (UA) 1000 H, Urine Ketones Negative, Urine Occult Blood Negative, Urine Nitrite Negative, Urine Bilirubin Negative, Urine Urobilinogen Normal, Ur Leukocyte Esterase 100 H, Urine RBC 0-5 SEEN, Urine WBC 10-25 SEEN, Ur Squamous Epith Cells 0-5 SEEN, Ur Transition Epith Cell 0-5 SEEN, Urine Bacteria 0 SEEN, Hyaline Casts 5-10 SEEN, Urine Mucus 0 SEEN, Urine Yeast 1+ 07/31/24 15:20: WBC 19.0 H, RBC 2.70 L, Hgb 8.5 L, Hct 29.4 L, MCV 108.9 H, MCH 31.5, MCHC 28.9 L, RDW Std Deviation 112.6 H, RDW Coeff of Melody 29.7 H, Plt Count 240, MPV 10.6, Sodium 153 H, Potassium 4.5, Chloride 120 H, Carbon Dioxide 30.0, Anion Gap 4 L, BUN 61 H, Creatinine 1.48 H, Estim Creat Clear Calc 31.36, Est GFR (MDRD) Af Amer 45 L, Est GFR (MDRD) Non-Af 37 L, BUN/Creatinine Ratio 41.2 H , Glucose 212 H, Calcium 8.8, Phosphorus 3.2, Magnesium 2.9 H, Total Bilirubin 3.50 H, Direct Bilirubin 1.90 H, AST 92 H, ALT 43, Alkaline Phosphatase 125 H, A mmonia 36.0 H, B-Natriuretic Peptide 341.1 H, Total Protein 5.3 L, Albumin 2.4 L , Globulin 2.9, Albumin/Globulin Ratio 0.8 L 08/01/24 06:55: WBC 11.1 H, RBC 2.35 L, Hgb 7.4 L, Hct 25.5 L, MCV 108.5 H, MCH 31.5, MCHC 29.0 L, RDW Std Deviation 114.0 H, RDW Coeff of Melody 29.2 H, Plt Count 184, MPV 10.7, Immature Gran % (Auto) 0.900, Neut % (Auto) 88.3 H, Lymph % (Auto) 7.1 L, [place] % (Auto) 3.2, Eos % (Auto) 0.3, Baso % (Auto) 0.2, Absolute Neuts (auto) 9.8 H, Absolute Lymphs (auto) 0.79 L, Nucleated RBC % 0.7, Differential Comment SCANNED, Anisocytosis 2+, Microcytosis 1+, Macrocytosis 1+, PT 23.7 H, INR 2.1, Sodium 151 H, Potassium 4.0, Chloride 117 H, Carbon Dioxide 28.0, Anion Gap 7, BUN 59 H, Creatinine 1.60 H, Estim Creat Clear Calc 29.13, E st GFR (MDRD) Af Amer 41 L, Est GFR (MDRD) Non-Af 34 L, BUN/Creatinine Ratio 36.9 H, Glucose 203 H, Calcium 9.0, Total Bilirubin 3.70 H, Direct Bilirubin 1.77 H, AST 76 H, ALT 38, Alkaline Phosphatase 113, Total Protein 5.7 L, Albumin 3.1 L, Globulin 2.6, Albumin/Globulin Ratio 1.2, TSH < 0.005 L Micro: Microbiology 07/31/24 14:15 Mucosa - Nose Coronavirus COVID-19 PCR - Final SARS-CoV-2 (COVID 19 PCR) 07/31/24 14:15 Mucosa - Nose Respiratory Panel (PCR) - Final 07/31/24 14:15 Nasal Secretion MRSA (PCR) - Final 07/31/24 14:15 Urine Catheter - [place]son Legionella Antigen - Final 07/31/24 14:15 Urine Catheter - [place] Streptococcus pneumoniae Antigen (M - Final Radiography Diagnostic Testing: Radiology Impression Chest X-Ray 07/31/24 13:18 IMPRESSION: Diminished inspiratory effort and mild right lower lobe atelectasis or infiltrate and small left pleural effusion with left lower lobe atelectasis Electronically Signed: Prabhakar Oreilly MD at 21:48 EDT , Physical Exam Const no apparent distress Orientation / Consciousness: lethargic Nutritional Appearance: obese HEENT Head and Scalp: atraumatic Neck no lymphadenopathy Resp no use of accessory muscles Auscultation: diminished lung sounds GI non-tender and non-distended Auscultation: normoactive bowel sounds Neuro Sensorium / Orientation: lethargic Psych cooperative Memory / Cognition: cognition impaired Assessment & Plan Assessment/Plan (1) Hepatorenal syndrome: PLAN: Her creatinine appears to be just about stable, she has developed some hypernatremia, most likely due to overdiuresis. PLAN: Plan Will add gentle hydration in the form of D5W to prevent further worsening of sodium
--- NOTE | 2024-08-01 10:19 | PN.HOSP_ITS ---
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) Objective Data Objective Data Vital Signs: Vital Signs Temp Pulse Resp BP Pulse Ox O2 Del Method O2 Flow Rate 96.8 F L 64 16 125/52 H 93 Nasal Cannula 6 08/01/24 09:10 08/01/24 09:10 08/01/24 09:10 08/01/24 09:10 08/01/24 09:10 08/01/24 09:10 08/01/24 09:10 Oxygen Flow Rate (L/min) 6 Oxygen Delivery Method Nasal Cannula Weight: 164 lb 14.492 oz Body Mass Index (BMI) 35.6 Intake & Output: Intake and Output for Last 24 Hours 07/30/24 07/31/24 08/01/24 23:59 23:59 23:59 Intake Total 1035 / 1035 150 / 150 Output Total 1200 / 1200 350 / 350 Balance -165 / -165 -200 / -200 Medical Nutrition Assessment Dietitian: Malnutrition Criteria Met Start: 07/31/24 14:51 Freq: Status: Active Protocol: Document 07/31/24 14:51 DAY (Rec: 07/31/24 14:51 SLA [id number]) Nutrition Malnutrition Evidence of Malnutrition Exists Yes Malnutrition (severe): Acute Illness/Injury Evidenced By Suboptimal Energy Intake ( Severe),Weight Loss (Severe) Clinical Problem Acute Disease or Injury Related Malnutrition Etiology related to acute illness and inadequate energy intake Signs/Symptoms as evidenced by 14.1% unintended wt loss and po intake meeting <75% of est nutritional needs x 2 months Status Active Problem Recommendation Dietitian Recommendations/Changes Will liberalize diet to regular no added salt w/ 4 oz chocolate CIB w/ meals d/t signs and symptoms of malnutrition Rec appetite stimulant r/t hx 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 Cloudy, Urine pH 6.0, Ur Specific [place] 1.010, Urine Protein Negative, Urine Glucose (UA) 1000 H, Urine Ketones Negative, Urine Occult Blood Negative, Urine Nitrite Negative, Urine Bilirubin Negative, Urine Urobilinogen Normal, Ur Leukocyte Esterase 100 H, Urine RBC 0-5 SEEN, Urine WBC 10-25 SEEN, Ur Squamous Epith Cells 0-5 SEEN, Ur Transition Epith Cell 0-5 SEEN, Urine Bacteria 0 SEEN, Hyaline Casts 5-10 SEEN, Urine Mucus 0 SEEN, Urine Yeast 1+ 07/31/24 15:20: WBC 19.0 H, RBC 2.70 L, Hgb 8.5 L, Hct 29.4 L, MCV 108.9 H, MCH 31.5, MCHC 28.9 L, RDW Std Deviation 112.6 H, RDW Coeff of Melody 29.7 H, Plt Count 240, MPV 10.6, Sodium 153 H, Potassium 4.5, Chloride 120 H, Carbon Dioxide 30.0, Anion Gap 4 L, BUN 61 H, Creatinine 1.48 H, Estim Creat Clear Calc 31.36, Est GFR (MDRD) Af Amer 45 L, Est GFR (MDRD) Non-Af 37 L, BUN/Creatinine Ratio 41.2 H , Glucose 212 H, Calcium 8.8, Phosphorus 3.2, Magnesium 2.9 H, Total Bilirubin 3.50 H, Direct Bilirubin 1.90 H, AST 92 H, ALT 43, Alkaline Phosphatase 125 H, A mmonia 36.0 H, B-Natriuretic Peptide 341.1 H, Total Protein 5.3 L, Albumin 2.4 L , Globulin 2.9, Albumin/Globulin Ratio 0.8 L 08/01/24 06:55: WBC 11.1 H, RBC 2.35 L, Hgb 7.4 L, Hct 25.5 L, MCV 108.5 H, MCH 31.5, MCHC 29.0 L, RDW Std Deviation 114.0 H, RDW Coeff of Melody 29.2 H, Plt Count 184, MPV 10.7, Immature Gran % (Auto) 0.900, Neut % (Auto) 88.3 H, Lymph % (Auto) 7.1 L, [place] % (Auto) 3.2, Eos % (Auto) 0.3, Baso % (Auto) 0.2, Absolute Neuts (auto) 9.8 H, Absolute Lymphs (auto) 0.79 L, Nucleated RBC % 0.7, Differential Comment SCANNED, Anisocytosis 2+, Microcytosis 1+, Macrocytosis 1+, PT 23.7 H, INR 2.1, Sodium 151 H, Potassium 4.0, Chloride 117 H, Carbon Dioxide 28.0, Anion Gap 7, BUN 59 H, Creatinine 1.60 H, Estim Creat Clear Calc 29.13, E st GFR (MDRD) Af Amer 41 L, Est GFR (MDRD) Non-Af 34 L, BUN/Creatinine Ratio 36.9 H, Glucose 203 H, Calcium 9.0, Total Bilirubin 3.70 H, Direct Bilirubin 1.77 H, AST 76 H, ALT 38, Alkaline Phosphatase 113, Total Protein 5.7 L, Albumin 3.1 L, Globulin 2.6, Albumin/Globulin Ratio 1.2, TSH < 0.005 L Micro: Microbiology 07/31/24 14:15 Mucosa - Nose Coronavirus COVID-19 PCR - Final SARS-CoV-2 (COVID 19 PCR) 07/31/24 14:15 Mucosa - Nose Respiratory Panel (PCR) - Final 07/31/24 14:15 Nasal Secretion MRSA (PCR) - Final 07/31/24 14:15 Urine Catheter - [facility]son Legionella Antigen - Final 07/31/24 14:15 Urine Catheter - [facility] Streptococcus pneumoniae Antigen (M - Final Radiography Diagnostic Testing: Radiology Impression Chest X-Ray 07/31/24 13:18 IMPRESSION: Diminished inspiratory effort and mild right lower lobe atelectasis or infiltrate and small left pleural effusion with left lower lobe atelectasis Electronically Signed: Prabhakar Oreilly MD at 21:48 EDT , Physical Exam Narrative Seen and examined. Discussed with patient's daughter Misa on the phone Physical exam General: Awake. Wakes up and talks coherently but slowly. Disoriented to time, intermittent confusion. Cooperative BMI 35.4 kg per square HEENT: Atraumatic, PERRLA, EOMI, Normocephalic Oral: Oral mucosa dry. No Gingival or Mucosal Lesions/ Ulcerations Neck: Supple, No JVD, Negative Carotid Bruits Chest wall/Lungs: Air entry diminished in bilateral lung bases. No crepitation/rhonchi Cardiovascular: Regular rate, Regular Rhythm, Normal S1, Normal S2, No M/G/R Abdomen: Bowel Sounds Present, Soft, Non Tender, Non-Distended clinically no significant ascites : No dysuria. No renal angle tenderness. No suprapubic tenderness. Extremities: Mild/minimal pedal edema, Capillary Refill Less than 3 Seconds Skin: No rashes, No breakdown Musculoskeletal: No Tenderness to Palpation of Joints or Extremities Neurological: Cranial nerves II-XII grossly intact, DTR 2+/4. No acute focal neurological deficit. Psych/Mental Status: Flat affect Assessment & Plan Assessment/Plan (1) Encephalopathy: PLAN: Plan This 68-year-old female being admitted for evaluation of altered mental status/acute encephalopathy from [facility]. 1. Acute on recurrent encephalopathy most likely hepatic/metabolic encephalopathy from recent diagnosis of decompensated cirrhosis: Patient was recently found to have cirrhosis with severe ascites, lower extremity edema in June 2024 and was aggressively diuresed as mentioned HPI. Currently swelling is well-controlled. Patient not on diuretic because of CKD. Labs ordered. Lactulose and Xifaxan. Hold sedating medications. Leukocytosis unclear but does not have particular focus of infection. May be minimal ascites as per imaging but no tenderness therefore doubt SBP. Infectious workup ordered. Previous EGD in [facility] system showed gastritis and PHG 08/01: Confusion, disorientation encephalopathy similar to yesterday. Patient is also dehydrated. Hypernatremia, hyperchloremia probably due to dehydration and lactulose. Cannot give D5W because patient has hyperglycemia. Free water 2 L/day by mouth. 2. 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 Patient does not have history of alcohol use as per the daughter. Probably CERVANTES related. Right upper quadrant sonogram with spleen ordered for Friday. 3. Chronic HFpEF, CAD status post CABG 2 years ago: BNP elevated. Chest x-ray ordered. EKG shows sinus rhythm. Patient does not have chest pain or acute cardiac event in the last 2 years after CABG. On baby aspirin continued 08/01: Chest x-ray ordered. Small left pleural effusion. Bilateral lung bases atelectasis. Discussed with the patient's daughter. 4. COPD with chronic hypoxic respiratory failure on 4 L of home oxygen with COVID-19 pneumonia: Oxygen therapy. DuoNeb as needed. Incentive spirometry and Pep. 08/01: Leukocytosis improved. Urinary antigens are negative. COVID-19 PCR positive. Respiratory panel and MRSA PCR negative. Prelim urine culture shows yeast. Patient is started on dexamethasone yesterday on 07/31. Not a candidate for remdesivir as patient has cirrhosis with elevated liver chemistry and total bilirubin. Exact time of onset of symptoms also unclear as patient has COPD but her daughter did not notice any increase in cough sputum production sore throat. ID consulted further. 5. Anemia of chronic disease due to kidney dysfunction: Iron workup reviewed consistent with anemia of chronic disease. B12 high. 6. Paroxysmal A-fib on Eliquis: Hold Eliquis. 7. Dyslipidemia: On simvastatin. 8. DENILSON on CKD stage IIIb: BUNs/creatinine 69/1.66. Hypokalemia K2.8: BMP stat ordered unclear how much potassium was replaced. 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 Patient already on midodrine. 9. Hypothyroidism: Abnormal thyroid function: TSH less than 0.5. Free T4 45. Repeat thyroid function ordered. 08/01: TSH very low less than 0.05. Free T4 ordered 10. Anxiety and depression: On Celexa continued 07/30, labs show hypokalemia K2.8. BUN/creatinine 69/1.66. Glucose 170. Bicarb 36. Calcium 10.4. BNP elevated. ALT 43, AST 92, alkaline phosphatase 125. Total bili 4.3, direct bili 2.3. Albumin 2.5. Phosphorus 3.8. Fasting profile shows triglyceride 158, LDL 39. Iron workup shows anemia of chronic disease. B12 high about 2000. TSH low less than 0.5, free T45.58. A1c 5.0. CBC shows leukocytosis and 20,000. H&H 8.9/27.4%. Platelet count 207,000. Ammonia 37. Living will/advanced directive/end of life care: Patient does not have living will or advanced directive. She does not have POA but her daughter Misa WOO would be her POA. After discussion of benefits/risks procedures involved with full code, DNR CC arrest and DNR CC, the patient and her daughter opted for full code. Patient does want artificial life support including intubation, tube feed, ventilator and/chest compression, central venous catheter, vasopressor and DC shock if needed Total time spent in [id number]-heam encounter in discussion of advanced directive 17 minutes. Charges/Coding Addendum Addendum: Total time of the visit including total time spent in counseling or coordination of care, (more than 50% of the total time, spent in obtaining medical information from nurses and other ancillary care providers ,explaining to the patient about labs, imaging, diagnosis and management of active complex medical conditions), , review of labs and imaging is 35 minutes. Visit Charges Inpatient E&M: 24712 Subs Hosp L3
[2024-08-01] MEDS: Menthol/Lanolin/Calamine/Znox 113 GM Tube 1 APPLIC TOPICAL ×2 (11:03→22:49)
[2024-08-01] MEDS: Albumin Human 25% (100 mL) 25 GM/100 ML BAG IV ×3 (11:03→23:23)
[2024-08-01] MEDS: Dextrose 5%-Water (1000mL Bag) 1,000 ML 75 ML IV (11:03)
[2024-08-01] MEDS: dexAMETHasone 10 MG/ML Vial 6 MG IV (11:05)
[2024-08-01] MEDS: Clotrimazole 1 APPLIC Tube TOPICAL ×2 (11:06→22:50)
[2024-08-01 11:54] LABS: T4 Free Direct 3.44 ng/dL (0.76-1.46)
[2024-08-01] MEDS: Vancomycin HCl 750 MG in 0.9% Normal Saline (250mL Bag) 250 ML 250 MG IV (13:11)
[2024-08-01] MEDS: 0.9% Saline Lock 10 ML Syringe IV ×2 (18:07→22:51)
[2024-08-01 18:45] LABS: Bedside Glucose 179 mg/dL (74-106)
--- NOTE | 2024-08-01 19:04 | CON.PCM.GI_ITS ---
HPI Consult Data Date of Consult: 08/01/24 HPI Narrative Reason for Consultation: cirrhosis HPI Narrative: ABRAHAN LOOMIS, is a 69 F is being directly admitted from [facility] for further management of altered mental status/encephalopathy. She was admitted there on 07/27/2024 night for confusion altered mental status/syncopal episode with abnormal lab values. Prior to this admission patient has spent 22 days at [facility] where she was admitted with substantial fluid overload, congestive heart failure. At that time she was found to have liver failure and has developed acute elevation in BUN and creatinine and has been followed by nephrology. She was placed on midodrine, albumin and diuretics for hepatorenal syndrome type II. She did not require renal replacement therapy. She was diagnosed with hepatic encephalopathy and given lactulose with significant improvement of the mental status. Unfortunately, she has been having worsening dysphagia and possible episodes of aspiration so is currently n.p.o. patient she will have a formal swallowing study tomorrow. She has a new diagnosis of cirrhosis which is believed to be a result of nonalcoholic fatty liver disease. Past medical history is also complicated by congestive heart failure, atrial fibrillation on apixaban. She does remain in negative balance since being admitted to the hospital. Over the last few months she has lost a significant amount of weight. She did have a chest x-ray that showed some mild effusions on the left lower lobe of the lung. [facility] Medical History (HFpEF) heart failure with preserved ejection fraction Anemia of chronic disease History of GI bleed PAF (paroxysmal atrial fibrillation) CAD (coronary artery disease) Chronic hypoxic respiratory failure, on home oxygen therapy COPD (chronic obstructive pulmonary disease) Former tobacco use Hypothyroidism Anxiety and depression Hepatic cirrhosis HLD (hyperlipidemia) HTN (hypertension) Chronic anemia Stage 3b chronic kidney disease Home Medications ?Medication ?Instructions ?Recorded ?Last Taken ?Type acetaminophen 325 mg capsule 650 mg PO Q12H PRN fever or pain 07/31/24 Unknown History albuterol sulfate 90 mcg/actuation 1 puff inhalation Q6H PRN copd 07/31/24 Unknown History aerosol inhaler apixaban 5 mg tablet (Eliquis) 5 mg PO BID 07/31/24 Unknown History aspirin 81 mg tablet,delayed 81 mg PO DAILY 07/31/24 Unknown History release (Adult Low Dose Aspirin) bumetanide 2 mg tablet 2 mg PO BID chf 07/31/24 Unknown History citalopram 20 mg tablet 20 mg PO DAILY 07/31/24 Unknown History empagliflozin 10 mg tablet 10 mg PO DAILY 07/31/24 Unknown History (Jardiance) ferrous fumarate 100 mg iron-vit C 1 tab PO QODAY supplement 07/31/24 Unknown History 300 mg-folic acid 1 mg tablet furosemide 40 mg tablet 40 mg PO BID 07/31/24 Unknown History ipratropium 0.5 mg-albuterol 3 mg 3 ml inhalation Q4H PRN sob 07/31/24 Unknown History (2.5 mg base)/3 mL nebulization soln levothyroxine 25 mcg tablet 25 mcg PO DAILY 07/31/24 Unknown History melatonin 5 mg capsule 5 mg PO QHS PRN PRN insomnia 07/31/24 Unknown History metoprolol tartrate 25 mg tablet 12.5 mg PO BID bp 07/31/24 Unknown History midodrine 10 mg tablet 10 mg PO TID hypotension 07/31/24 Unknown History nitroglycerin 0.4 mg sublingual 0.4 mg sublingual Q5M PRN chest 07/31/24 Unknown History tablet pain pantoprazole 40 mg tablet,delayed 40 mg PO DAILY 07/31/24 Unknown History release potassium chloride 20 mEq 20 meq PO DAILY 07/31/24 Unknown History tablet,extended release(part/cryst) (Klor-Con M) promethazine 25 mg tablet 25 mg PO Q8H PRN PRN n/v 07/31/24 Unknown History simvastatin 40 mg tablet 40 mg PO QHS 07/31/24 Unknown History Allergy/AdvReac Type Severity Reaction Status Date / Time sulfamethoxazole (From Allergy Mild Hives Verified 07/30/24 19:58 Bactrim) trimethoprim (From Bactrim) Allergy Mild Hives Verified 07/30/24 19:58 Family History Mother Diabetes Hypertension Heart disease CVA (cerebral vascular accident) Father Diabetes Hypertension Heart disease Uncle Kidney disease Surgical History History of hernia repair History of coronary artery stent placement S/P CABG (coronary artery bypass graft) Social History household members: none housing: halfway Smoking Status: Former smoker how long ago did patient quit smoking: Quit ~ 14 years ago, smoking 0.5-1/2 ppd since 14 years old until quit. alcohol intake: never substance use type: does not use ROS ROS Narrative Patient mild drowsy and lethargic. Constitutional: Reports fatigue and weakness. No fever. HEENT: Reports systems reviewed and no addt'l complaints, except as documented Respiratory/Chest: Chronic dyspnea/shortness of breath on exertion CVS: History of CABG 2 years ago. CHF. Possible syncope Gastrointestinal: Denies acute but chronic nausea. Had recent vomiting. Diarrhea because of lactulose Genitourinary: CKD. Denies burning urination or new urinary tract symptoms Musculoskeletal: Denies acute joint pain or limited range of motion. No acute injury. Chronic arthritis Neurologic: Denies seizure-like symptoms. Encephalopathy skin: No ulcer. No rash Endocrinology: Reports systems reviewed and no addt'l complaints, except as documented Hematologic/Lymphatic: Reports systems reviewed and no addt'l complaints, except as documented Rest 14 ROS are negative except as mentioned in HPI Physical Exam Narrative Seen and examined Physical exam General: Awake. Wakes up and talks coherently but slowly. Disoriented to time, intermittent confusion. Cooperative BMI 35.4 kg per square HEENT: Atraumatic, PERRLA, EOMI, Normocephalic Oral: Oral mucosa dry. No Gingival or Mucosal Lesions/ Ulcerations Neck: Supple, No JVD, Negative Carotid Bruits Chest wall/Lungs: Air entry diminished in bilateral lung bases. No crepitation/rhonchi Cardiovascular: Regular rate, Regular Rhythm, Normal S1, Normal S2, No M/G/R Abdomen: Bowel Sounds Present, Soft, Non Tender, Non-Distended clinically no significant ascites : No dysuria. No renal angle tenderness. No suprapubic tenderness. Extremities: Mild/minimal pedal edema, Capillary Refill Less than 3 Seconds Skin: No rashes, No breakdown Musculoskeletal: No Tenderness to Palpation of Joints or Extremities Neurological: Cranial nerves II-XII grossly intact, DTR 2+/4. No acute focal neurological deficit. Psych/Mental Status: Flat affect Medical Records Data Medical Nutrition Assessment Dietitian: Malnutrition Criteria Met Start: 07/31/24 14:51 Freq: Status: Active Protocol: Document 07/31/24 14:51 DAY (Rec: 07/31/24 14:51 SLA [id number]) Nutrition Malnutrition Evidence of Malnutrition Exists Yes Malnutrition (severe): Acute Illness/Injury Evidenced By Suboptimal Energy Intake ( Severe),Weight Loss (Severe) Clinical Problem Acute Disease or Injury Related Malnutrition Etiology related to acute illness and inadequate energy intake Signs/Symptoms as evidenced by 14.1% unintended wt loss and po intake meeting <75% of est nutritional needs x 2 months Status Active Problem Recommendation Dietitian Recommendations/Changes Will liberalize diet to regular no added salt w/ 4 oz chocolate CIB w/ meals d/t signs and symptoms of malnutrition Rec appetite 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 08/01/24 06:55 08/01/24 06:55 Labs: Laboratory Results - last 24 hr 07/31/24 13:17: PT 22.9 H, INR 2.0 08/01/24 06:55: WBC 11.1 H, RBC 2.35 L, Hgb 7.4 L, Hct 25.5 L, MCV 108.5 H, MCH 31.5, MCHC 29.0 L, RDW Std Deviation 114.0 H, RDW Coeff of Melody 29.2 H, Plt Count 184, MPV 10.7, Immature Gran % (Auto) 0.900, Neut % (Auto) 88.3 H, Lymph % (Auto) 7.1 L, [place] % (Auto) 3.2, Eos % (Auto) 0.3, Baso % (Auto) 0.2, Absolute Neuts (auto) 9.8 H, Absolute Lymphs (auto) 0.79 L, Nucleated RBC % 0.7, Differential Comment SCANNED, Anisocytosis 2+, Microcytosis 1+, Macrocytosis 1+, PT 23.7 H, INR 2.1, Sodium 151 H, Potassium 4.0, Chloride 117 H, Carbon Dioxide 28.0, Anion Gap 7, BUN 59 H, Creatinine 1.60 H, Estim Creat Clear Calc 29.13, E st GFR (MDRD) Af Amer 41 L, Est GFR (MDRD) Non-Af 34 L, BUN/Creatinine Ratio 36.9 H, Glucose 203 H, Calcium 9.0, Total Bilirubin 3.70 H, Direct Bilirubin 1.77 H, AST 76 H, ALT 38, Alkaline Phosphatase 113, Total Protein 5.7 L, Albumin 3.1 L, Globulin 2.6, Albumin/Globulin Ratio 1.2, TSH < 0.005 L, Free T4 3.44 H 08/01/24 10:45: Blood Type O POSITIVE, Antibody Screen NEGATIVE, Crossmatch See Detail 08/01/24 18:23: POC Glucose 179 H Micro: Microbiology 07/31/24 14:15 Urine Catheter - [facility] Urine Culture - Preliminary Yeast 07/31/24 14:15 Urine Catheter - [facility] Legionella Antigen - Final 07/31/24 14:15 Urine Catheter - [facility] Streptococcus pneumoniae Antigen (M - Final 07/31/24 14:15 Mucosa - Nose Coronavirus COVID-19 PCR - Final SARS-CoV-2 (COVID 19 PCR) 07/31/24 14:15 Mucosa - Nose Respiratory Panel (PCR) - Final 07/31/24 14:15 Nasal Secretion MRSA (PCR) - Final Imaging Radiology Impression Chest X-Ray 07/31/24 13:18 IMPRESSION: Diminished inspiratory effort and mild right lower lobe atelectasis or infiltrate and small left pleural effusion with left lower lobe atelectasis Electronically Signed: Prabhakar Oreilly MD at 21:48 EDT , Assessment & Plan Assessment/Plan (1) Encephalopathy: PLAN: Plan This 68-year-old female with believed to be Mack related cirrhosis currently with decompensated liver disease : 1. 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 That carries a very high 3-month mortality at 19.6%. Due to her age and other comorbidities she would not be a good candidate for TIPS procedure as she already suffers from encephalopathy. She is currently on Xifaxan and lactulose. She has not had many bowel movements and is currently n.p.o. for a swallow study tomorrow. If she does pass the swallow study then she will need more aggressive therapy for her altered mental status. She cannot get a CT angio at this time due to her kidney disease to see if there are any other shunts that would be leading to her auto mental status. I suspect that she is suffering from severe sarcopenia as a result of her acute on chronic liver disease resulting in progressive dysphagia. Sarcopenia, rather than the hepatic reserve function, is associated with dysphagia among elderly patients with cirrhosis.? Depending on how she does with the swallow test she may need a repeat upper endoscopy due to her altered mental status and possible underlying erosive esophagitis and likely motility disorder. She also may benefit temporarily from a Dobbhoff tube to institute better nutrition and administration of liquids to help her kidney function and protein calorie malnutrition associated with cirrhosis. 2. Recent hepatorenal syndrome with CKD. Her kidney function is improved. She is followed by nephrology. She is already off of diuretics. Blood pressure is labile. I would recommend imaging of the liver spleen and kidneys. I am okay with her being positive regarding her fluid balance if that is going to help her kidney function. 3. She needs an alpha protein along with blood work to look for other signs of chronic liver disease as she may need to be on ursodiol and other medicine that may benefit her for her decompensated liver disease. 4. COPD with chronic hypoxic respiratory failure on 4 L of home oxygen with COVID-19 pneumonia: Being managed by hospitalist. Charges/Coding Visit Charges Inpatient E&M: 35380 Init Hosp L3
[2024-08-02] VITALS (13 sets, daily range): BP systolic 96–129; BP diastolic 45–65; PULSE 58–65; RESP 12–20; TEMP 36.4–37.1; O2SAT 89–98; BMI 35.3
[2024-08-02] MEDS: Insulin Lispro 100 UNIT/ML INSULN.PEN SC ×2 (00:52→05:30)
--- NOTE | 2024-08-02 01:16 | PCM.HOSP.N ---
Hospitalist Note Patient with increased O2 requirement above baseline, now up to 8L from baseline 4L. Will repeat CXR in AM and decreased D5W to 50 cc/hr, currently on per nephro for hypernatremia secondary to concern for over diuresis with hepatorenal syndrome.
[2024-08-02 01:21] LABS: Bedside Glucose 185 mg/dL (74-106)
[2024-08-02 05:49] LABS: Bedside Glucose 182 mg/dL (74-106)
--- NOTE | 2024-08-02 05:55 | US_ITS ---
STUDY: ABDOMINAL ULTRASOUND - RIGHT UPPER QUADRANT REASON FOR VISIT: Female, 69 years old Cirrhosis. -- Including spleen. R/O ascites TECHNIQUE: Ultrasound evaluation of the right upper quadrant was performed with real-time and static miles-scale imaging. TECHNICAL QUALITY: Adequate. COMPARISON: None. FINDINGS: Liver: The liver measures 16.3 cm. There is a heterogeneous echogenicity of the liver. The bile ducts are within normal limits. There is hepatic color flow. The direction of portal flow is hepatopetal. There is no demonstrated mass lesion. Small amount of surrounding ascites. Gallbladder: Normal distended gallbladder. The gallbladder wall measures 3 mm. There is a negative sonographic Patrick''s sign. There is pericholecystic fluid. There is biliary sludge dependent within the gallbladder. Common Bile Duct (C.B.D.): The common bile duct measures 5 mm. Pancreas: Normal size of the head, body and tail of the pancreas. There is normal echogenicity of the pancreas. There is no demonstrated pancreatic mass or cyst. Right Kidney: Normal size of the right kidney. The right kidney measures 10.9 cm. Normal renal cortex. The right cortex measures 1.8 cm. There is no demonstrated renal mass or cyst. There is no right hydronephrosis. IMPRESSION: Gallbladder sludge. Cirrhosis with a small amount of ascites. Electronically Signed: Dionicio Osorio MD at 11:17 EDT , STUDY: ABDOMINAL ULTRASOUND - LEFT UPPER QUADRANT REASON FOR EXAM: Female, 69 years old. Cirrhosis. -- Including spleen. R/O ascites TECHNIQUE: Transabdominal ultrasound was performed with real-time and static miles scale imaging. TECHNICAL QUALITY: Adequate. COMPARISON: None. FINDINGS: Spleen: Normal size of the spleen. The spleen measures 11.5 cm. Left Kidney: Normal size of the left kidney. The left kidney measures 10.8 cm. Normal renal cortex. The left cortex measures 1.3 cm. There is no demonstrated renal mass or cyst. There is no left hydronephrosis. US/Abdomen Limited IMPRESSION: Normal left upper quadrant abdominal ultrasound examination. Electronically Signed: Dionicio Osorio MD at 9:18 EDT ,
--- NOTE | 2024-08-02 06:15 | RAD_ITS ---
STUDY: X-RAY CHEST REASON FOR EXAM: Female, 69 years old. Worsening oxygen requirment TECHNIQUE: Single AP portable view of the chest. COMPARISON: 07/31/2024 FINDINGS: Status post median sternotomy. Poor inspiration with some bibasilar atelectasis. There is no demonstrated pleural abnormality. Normal size heart. Normal mediastinum and noman. Normal visualized pulmonary arteries. Normal visualized aortic arch and descending thoracic aorta. Normal visualized thoracic spine. Normal visualized ribs, clavicles, and shoulders. There is no demonstrated abnormality of the visualized soft tissue structures of the upper abdomen. RAD/Chest 1 View (Portable) IMPRESSION: Poor inspiration with some bibasilar atelectasis Electronically Signed: Dionicio Osorio MD at 8:56 EDT ,
[2024-08-02] MEDS: Budesonide Respules 0.5 MG/2 ML AMPUL.NEB. INHALATION ×2 (06:27→20:25)
[2024-08-02] MEDS: Ipratropium/Albuterol Sulfate 3 ML AMPUL.NEB INHALATION ×4 (06:27→20:25)
[2024-08-02] MEDS: Aspirin E.C. 81 MG Tablet PO (08:36)
[2024-08-02] MEDS: Citalopram 20 MG Tablet PO (08:36)
[2024-08-02] MEDS: Midodrine HCl 5 MG Tablet 10 MG PO ×3 (08:36→16:10)
[2024-08-02] MEDS: Pantoprazole Sodium 40 MG Tablet PO (08:37)
[2024-08-02] MEDS: rifAXIMin 550 MG Tablet PO ×2 (08:37→21:07)
[2024-08-02] MEDS: Clotrimazole 1 APPLIC Tube TOPICAL ×2 (08:38→21:07)
[2024-08-02] MEDS: dexAMETHasone 10 MG/ML Vial 6 MG IV (08:38)
[2024-08-02] MEDS: Menthol/Lanolin/Calamine/Znox 113 GM Tube 1 APPLIC TOPICAL ×2 (08:39→21:06)
[2024-08-02] MEDS: Albumin Human 25% (100 mL) 25 GM/100 ML BAG IV ×2 (08:39→16:07)
--- NOTE | 2024-08-02 09:54 | PCM.PN.HOSP ---
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) Subjective Subjective Patient evaluated at bedside, has had increasing O2 requirements overnight, now on high flow, cannot tell me when her coughing or shortness of breath started but she feels they have been worsening over time Objective Data Objective Data Vital Signs: Vital Signs Temp Pulse Resp BP Pulse Ox O2 Del Method O2 Flow Rate 98.8 F 62 18 96/45 L 93 Nasal Cannula 8 08/02/24 08:27 08/02/24 09:01 08/02/24 09:01 08/02/24 08:27 08/02/24 09:01 08/02/24 08:42 08/02/24 08:42 FiO2 70 08/02/24 09:01 Oxygen Flow Rate (L/min) 8 Oxygen Delivery Method Nasal Cannula Weight: 74.1 kg Body Mass Index (BMI) 35.3 Intake & Output: Intake and Output for Last 24 Hours 07/31/24 08/01/24 08/02/24 23:59 23:59 23:59 Intake Total 1035 / 1035 1236.00 / 1236.00 481.67 / 481.67 Output Total 1200 / 1200 1000 / 1000 600 / 600 Balance -165 / -165 236.00 / 236.00 -118.33 / -118.33 Medical Nutrition Assessment Dietitian: Malnutrition Criteria Met Start: 07/31/24 14:51 Freq: Status: Active Protocol: Document 07/31/24 14:51 DAY (Rec: 07/31/24 14:51 DAY [id number]) Nutrition Malnutrition Evidence of Malnutrition Exists Yes Malnutrition (severe): Acute Illness/Injury Evidenced By Suboptimal Energy Intake ( Severe),Weight Loss (Severe) Clinical Problem Acute Disease or Injury Related Malnutrition Etiology related to acute illness and inadequate energy intake Signs/Symptoms as evidenced by 14.1% unintended wt loss and po intake meeting <75% of est nutritional needs x 2 months Status Active Problem Recommendation Dietitian Recommendations/Changes Will liberalize diet to regular no added salt w/ 4 oz chocolate CIB w/ meals d/t signs and symptoms of malnutrition 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 Lab / Micro Data 08/01/24 06:55 08/02/24 07:17 Labs: Laboratory Results - last 24 hr 08/01/24 06:55: Free T4 3.44 H 08/01/24 10:45: Blood Type O POSITIVE, Antibody Screen NEGATIVE, Crossmatch See Detail 08/01/24 18:23: POC Glucose 179 H 08/02/24 00:59: POC Glucose 185 H 08/02/24 05:18: POC Glucose 182 H 08/02/24 07:17: Sodium 150 H, Potassium 3.6, Chloride 119 H, Carbon Dioxide 22.0, Anion Gap 9, BUN 63 H, Creatinine 1.55 H, Estim Creat Clear Calc 29.92, Est GFR (MDRD) Af Amer 42 L, Est GFR (MDRD) Non-Af 35 L, BUN/Creatinine Ratio 40.6 H, Glucose 192 H, Hemoglobin A1c 5.0, Calcium 9.4, Total Bilirubin 4.00 H, AST 65 H, ALT 40, Alkaline Phosphatase 99, Total Protein 6.2 L, Albumin 3.2, Globulin 3.0, Albumin/Globulin Ratio 1.1 Micro: Microbiology 07/31/24 14:15 Urine Catheter - [facility] Urine Culture - Preliminary Yeast 07/31/24 14:15 Urine Catheter - [facility] Legionella Antigen - Final 07/31/24 14:15 Urine Catheter - [facility] Streptococcus pneumoniae Antigen (M - Final 07/31/24 14:15 Mucosa - Nose Coronavirus COVID-19 PCR - Final SARS-CoV-2 (COVID 19 PCR) 07/31/24 14:15 Mucosa - Nose Respiratory Panel (PCR) - Final 07/31/24 14:15 Nasal Secretion MRSA (PCR) - Final Radiography Diagnostic Testing: Radiology Impression Chest X-Ray 08/02/24 06:15 IMPRESSION: Poor inspiration with some bibasilar atelectasis Electronically Signed: Dionicio Osorio MD at 8:56 EDT , Physical Exam Narrative General: Alert, knows where she is in the year seems to have difficulty answering direct questions about symptoms HEENT: Atraumatic, normocephalic Eyes: Anicteric, normal conjunctiva, extraocular movements grossly intact Neck: Supple Respiratory: Slight increased respiratory effort, poor airflow throughout with some scattered wheezes especially in right upper lobe Cardiovascular: Regular rate GI: Soft, nondistended Extremities: No significant pitting edema Musculoskeletal: Moving all extremities Neuro: No overt focal neurological deficits Skin: No rashes appreciated Psych: Cooperative Assessment & Plan Assessment/Plan (1) Acute on chronic hypoxic respiratory failure: PLAN: Plan #Acute on chronic hypoxic respiratory failure on 2 to 4 L home O2/chronic COPD/COVID-19 positive -Suspect patient's acute on chronic respiratory failure is multifactorial -Patient tested positive for COVID-19 07/31 and it appears at [facility] on 07/27 she was negative but patient unable to tell me exact onset of symptoms -She is on roughly 4 L home O2 but now is on high flow nasal cannula -She is on dexamethasone, do not think she can get remdesivir given the elevated creatinine -Labs have now been scheduled -Her diuretics have been held as it was suspected that she had been significantly overdiuresed previously, does not appear to be overtly overloaded on exam and sodium and renal function remain elevated -Patient on inhaled Pulmicort -Obtain sputum culture if able -Chest x-ray on presentation with some right lower lobe atelectasis or infiltrate -Reviewed chest x-ray film, query if there is some worsening of right lower lobe findings -Resume Zosyn, had elevated white blood cell count on presentation with left shift that improved with antibiotics and has infiltrate, is on steroids however do not believe these were started at [facility] due to patient only being COVID-positive here so this would not account for her elevated white blood cell count, cannot r/o aspect of pnemonia -Pulmonary/critical care consult # DENILSON versus CKD versus DENILSON on CKDIIIb/hypernatremia -Creatinine 1.55 with a BUN of 63 -Unclear baseline but had been admitted to [facility] last month and was vigorously diuresed to the point that dialysis was anticipated but then she started making urine -Nephrology consulted -Patient has been on gentle D5 due to her kidney function and hypernatremia -[facility] -Continue midodrine 5 mg every 8 -Received some albumin #CERVANTES Cirrhosis -Recently admitted to an [facility] June 2024 with decompensated cirrhosis and was aggressively diuresed -Continue lactulose and Xifaxan -GI consult -abdominal ultrasound pending # Chronic heart failure preserved ejection fraction by history -Documented heart failure preserved ejection fraction no no echo in our system -No Lasix at this time given kidney function -Daily weights, I's and O's -Fluid restriction, heart healthy diet #Encephalopathy suspect metabolic -Patient has had some intermittent altered mental status -Patient has had some waxing and waning mental status -Ammonia only 36 on presentation so lower suspicion that this was hepatic encephalopathy -Antibiotics resumed, cannot rule out pneumonia at this time especially given infiltrate and productive cough but does have COVID-19 which confounds picture -UA not suggestive of UTI # Recent GI bleed -Reportedly had recent EGD reportedly showed gastritis and PHG -GI consulted as above -Hemoglobin 8.510/5 and down trended to 7.4 on 08/01, awaiting a.m. hemoglobin -Transfusion threshold of 8 -Continue to hold Eliquis, if continues to drop may need to hold aspirin as well # Low TSH -With elevated free T4 -Hold home Synthroid 25 mcg #Type 2 diabetes mellitus -Glucose checks and sliding scale insulin #GERD -Continue PPI #hx afib -Holding Eliquis, metoprolol with holding parameters #Hx CAD s/p CABG -Patient on aspirin, does not appear to be overtly bleeding at this moment but awaiting a.m. hemoglobin -Metoprolol with holding parameters -Continue statin #DVT ppx: SCDs Katt Torres MD Time spent in the patient's overall evaluation,decision-making process, review of diagnostic data, adjustment of management, discussion with other providers, nursing nursing and ancillary staff involved in patient's care documentation, 61 Minutes Charges/Coding Visit Charges Inpatient E&M: 92572 [facility] Hosp L3
--- NOTE | 2024-08-02 10:12 | CASEMGMT ---
Social Work Updates sent to Rom James. Cinthya Marie, FAMILY SPECIALIST, NETWORK SUPPORT ENGINEER
--- NOTE | 2024-08-02 10:53 | CON.PCM.CC_ITS ---
Assessment & Plan Assessment/Plan (1) Acute on chronic hypoxic respiratory failure: PLAN: Plan RECOMMENDATIONS: 1. Supplemental oxygen to maintain saturations at or above 90%. 2. Recheck BNP, procalcitonin and MRSA PCR. 3. Continue empiric antibiotics. If MRSA screen is negative, will discontinue vancomycin. 4. Continue bronchodilators and Decadron. 5. Maintain n.p.o. status, given tenuous respiratory status. 6. Transfuse if hemoglobin drops below 7 g/dL. Continue PPI therapy. IMPRESSIONS: 1. Acute on chronic hypoxemic respiratory failure Most likely multifactorial in etiology with underlying COPD, acute COVID-19 pneumonia and possible heart failure with preserved ejection fraction contributing. Unfortunately, the patient has underlying multisystem organ dysfunction, which will make it difficult to optimize her from a respiratory perspective. At this time, I agree with continuing scheduled bronchodilators and Decadron as ordered. In addition, I would plan to continue empiric antibiotics to cover for secondary bacterial pneumonia as well. Underlying PE would also be another contributing etiology. However, I agree with holding off on CTA chest given underlying renal dysfunction. If the patient were to worsen from a respiratory perspective, could consider empiric initiation of a weight- based heparin infusion along with lower extremity Doppler study. 2. Decompensated CERVANTES cirrhosis/anemia Continue medical management per gastroenterology recommendations. Continue to monitor H&H and transfuse if hemoglobin drops below 7 g/dL. Continue PPI therapy. Continue lactulose and rifaximin. 3. Acute versus chronic kidney disease, with concern for hepatorenal syndrome Nephrology is currently following to assist with medical management. Recommend conservative use of IV fluids. Continue scheduled midodrine as ordered. 4. History of heart failure with preserved ejection fraction/coronary artery disease status post CABG/questionable GI bleed/diabetes mellitus/history of atrial fibrillation/obesity Complicates care, management, recovery and prognosis. The patient's Eliquis remains on hold. She may eventually require the initiation of a weight-based heparin infusion, depending on clinical course. This note was generated with [employer] dictation software. It may contain incorrect words, spelling, and punctuation that were not noted in checking the note before signing. HPI Consult Data Date of Consult: 08/02/24 HPI Narrative Reason for Consultation: Acute on chronic hypoxemic respiratory failure HPI Narrative: The patient is a 69-year-old female, with a history as outlined below, who presented as a transfer of care from an outside hospital on July 31 with confusion and disorientation, at the request of family members. The patient has a known history of coronary artery disease status post CABG, heart failure with preserved ejection fraction, COPD and chronic hypoxemic respiratory failure with a baseline requirement of 4 L/min. In addition, the patient has underlying cirrhosis and chronic kidney disease. She does endorse a tobacco abuse history, having quit completely 15 years ago. The patient was recently hospitalized in June at the outside facility due to acute on chronic respiratory failure related to a CHF exacerbation. Upon arrival here, the patient was noted to have an elevated white blood cell count at 19,000 with a hemoglobin of 8.5 g/dL and normal platelet count. Her chemistry profile revealed an elevated sodium at 153 with a chloride of 120, BUN of 61 and creatinine of 1.48. BNP was mildly elevated at 341. The patient was found to be positive for COVID-19 on July 31. Subsequent chest imaging only demonstrated lower lobe atelectasis. Given the patient's tenuous respiratory status, she was ultimately placed on antimicrobials. There was concern that the patient's hypernatremia and volume status was related to overdiuresis at the outside hospital. Therefore, following evaluation by nephrology, the patient was placed on supplemental IV fluids. She was also seen in consultation by gastroenterology, with lactulose and rifaximin being continued. [facility] Medical History (HFpEF) heart failure with preserved ejection fraction Anemia of chronic disease History of GI bleed PAF (paroxysmal atrial fibrillation) CAD (coronary artery disease) Chronic hypoxic respiratory failure, on home oxygen therapy COPD (chronic obstructive pulmonary disease) Former tobacco use Hypothyroidism Anxiety and depression Hepatic cirrhosis HLD (hyperlipidemia) HTN (hypertension) Chronic anemia Stage 3b chronic kidney disease Home Medications ?Medication ?Instructions ?Recorded ?Last Taken ?Type acetaminophen 325 mg capsule 650 mg PO Q12H PRN fever or pain 07/31/24 Unknown History albuterol sulfate 90 mcg/actuation 1 puff inhalation Q6H PRN copd 07/31/24 Unknown History aerosol inhaler apixaban 5 mg tablet (Eliquis) 5 mg PO BID 07/31/24 Unknown History aspirin 81 mg tablet,delayed 81 mg PO DAILY 07/31/24 Unknown History release (Adult Low Dose Aspirin) bumetanide 2 mg tablet 2 mg PO BID chf 07/31/24 Unknown History citalopram 20 mg tablet 20 mg PO DAILY 07/31/24 Unknown History empagliflozin 10 mg tablet 10 mg PO DAILY 07/31/24 Unknown History (Jardiance) ferrous fumarate 100 mg iron-vit C 1 tab PO QODAY supplement 07/31/24 Unknown History 300 mg-folic acid 1 mg tablet furosemide 40 mg tablet 40 mg PO BID 07/31/24 Unknown History ipratropium 0.5 mg-albuterol 3 mg 3 ml inhalation Q4H PRN sob 07/31/24 Unknown History (2.5 mg base)/3 mL nebulization soln levothyroxine 25 mcg tablet 25 mcg PO DAILY 07/31/24 Unknown History melatonin 5 mg capsule 5 mg PO QHS PRN PRN insomnia 07/31/24 Unknown History metoprolol tartrate 25 mg tablet 12.5 mg PO BID bp 07/31/24 Unknown History midodrine 10 mg tablet 10 mg PO TID hypotension 07/31/24 Unknown History nitroglycerin 0.4 mg sublingual 0.4 mg sublingual Q5M PRN chest 07/31/24 Unknown History tablet pain pantoprazole 40 mg tablet,delayed 40 mg PO DAILY 07/31/24 Unknown History release potassium chloride 20 mEq 20 meq PO DAILY 07/31/24 Unknown History tablet,extended release(part/cryst) (Klor-Con M) promethazine 25 mg tablet 25 mg PO Q8H PRN PRN n/v 07/31/24 Unknown History simvastatin 40 mg tablet 40 mg PO QHS 07/31/24 Unknown History Allergy/AdvReac Type Severity Reaction Status Date / Time sulfamethoxazole (From Allergy Mild Hives Verified 07/30/24 19:58 Bactrim) trimethoprim (From Bactrim) Allergy Mild Hives Verified 07/30/24 19:58 Family History Mother Diabetes Hypertension Heart disease CVA (cerebral vascular accident) Father Diabetes Hypertension Heart disease Uncle Kidney disease Surgical History History of hernia repair History of coronary artery stent placement S/P CABG (coronary artery bypass graft) Social History household members: none housing: [facility] Smoking Status: Former smoker how long ago did patient quit smoking: Quit ~ 14 years ago, smoking 0.5-1/2 ppd since 14 years old until quit. alcohol intake: never substance use type: does not use ROS ROS Narrative 10 systems reviewed with pertinent positives as noted in the HPI above. Physical Exam Const alert and no apparent distress Constitutional Narrative: Chronically ill in appearance. Obese. General Appearance: cooperative HEENT normocephalic and head/scalp atraumatic Eyes EOMs intact bilaterally, conjunctivae normal and no scleral icterus Neck supple General: trachea midline Chest inspection of chest normal Resp Auscultation: wheezes and diminished lung sounds Cardio regular rate and regular rhythm GI normal to inspection, nondistended, normoactive bowel sounds Extremity no clubbing, cyanosis or edema Skin no rashes or lesions noted Neuro CN's II-XII intact bilaterally and no focal motor deficits Psych Mood & Affect: flat affect Medical Records Data Medical Nutrition Assessment Dietitian: Malnutrition Criteria Met Start: 07/31/24 14:51 Freq: Status: Active Protocol: Document 07/31/24 14:51 DAY (Rec: 07/31/24 14:51 DAY [id number]) Nutrition Malnutrition Evidence of Malnutrition Exists Yes Malnutrition (severe): Acute Illness/Injury Evidenced By Suboptimal Energy Intake ( Severe),Weight Loss (Severe) Clinical Problem Acute Disease or Injury Related Malnutrition Etiology related to acute illness and inadequate energy intake Signs/Symptoms as evidenced by 14.1% unintended wt loss and po intake meeting <75% of est nutritional needs x 2 months Status Active Problem Recommendation Dietitian Recommendations/Changes Will liberalize diet to regular no added salt w/ 4 oz chocolate CIB w/ meals d/t signs and symptoms of malnutrition 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 Data 08/01/24 06:55 08/02/24 07:17 Labs: Laboratory Results - last 24 hr 08/01/24 06:55: Free T4 3.44 H 08/01/24 10:45: Blood Type O POSITIVE, Antibody Screen NEGATIVE, Crossmatch See Detail 08/01/24 18:23: POC Glucose 179 H 08/02/24 00:59: POC Glucose 185 H 08/02/24 05:18: POC Glucose 182 H 08/02/24 07:17: Sodium 150 H, Potassium 3.6, Chloride 119 H, Carbon Dioxide 22.0, Anion Gap 9, BUN 63 H, Creatinine 1.55 H, Estim Creat Clear Calc 29.92, E st GFR (MDRD) Af Amer 42 L, Est GFR (MDRD) Non-Af 35 L, BUN/Creatinine Ratio 40.6 H, Glucose 192 H, Hemoglobin A1c 5.0, Calcium 9.4, Total Bilirubin 4.00 H, AST 65 H, ALT 40, Alkaline Phosphatase 99, Total Protein 6.2 L, Albumin 3.2, Globulin 3.0, Albumin/Globulin Ratio 1.1 Micro: Microbiology 07/31/24 14:15 Urine Catheter - [facility] Urine Culture - Final Presumptive C albicans 07/31/24 14:15 Urine Catheter - [facility] Legionella Antigen - Final 07/31/24 14:15 Urine Catheter - [facility] Streptococcus pneumoniae Antigen (M - Final Imaging Radiology Impression Chest X-Ray 08/02/24 06:15 IMPRESSION: Poor inspiration with some bibasilar atelectasis Electronically Signed: Dionicio Osorio MD at 8:56 EDT , Charges/Coding Visit Charges Inpatient E&M: 96166 Init Hosp L3
[2024-08-02 10:55] LABS: Absolute Lymphocyte Count 0.54 X10^3/uL (0.83-4.51); Absolute Neutrophil Count 8.9 X10^3/uL (2.0-7.7); Basophil# 0.01 X10^3/uL; Basophil% 0.1 % (0-1); Hematocrit 26.8 % (37-47); Hemoglobin 7.9 g/dL (12.0-15.0); Lymphocyte # 0.54 X10^3/ul (0.83-4.51); Lymphocyte % 5.3 % (19-41); Mean Corp Hgb Conc 29.5 g/dL (32-36); Mean Corpuscular Hgb 30.6 pg (27.0-32.0); Mean Corpuscular Volume 103.9 fL (81-99); Mean Platelet Vol. 10.4 fl (6.2-12.0); Monocyte# 0.62 X10^3/uL; Monocyte% 6.1 % (0-10); NRBC Flagged by Analyzer 0.6 % (0-5); Neutrophil # 8.92 X10^3/uL (2.7-7.7); Neutrophil % 87.6 % (47-70); POSITIVE DIFFERENTIAL YES; POSITIVE MORPHOLOGY YES; Platelet Count 149 K/mm3 (150-450); RBC Distribution Width CV 30.3 % (11.6-14.6); Red Blood Count 2.58 M/mm3 (4.2-5.4); White Blood Count 10.2 K/mm3 (4.4-11.0)
[2024-08-02 10:56] LABS: Procalcitonin 0.19 ng/mL (0.00-0.09)
[2024-08-02 10:57] LABS: Free T3 4.4 pg/mL (2.18-3.98)
[2024-08-02 10:58] LABS: Differential Indicated SCAN CRITERIA MET; RBC Distribution Width SD 111.4 fl (35.1-43.9)
[2024-08-02 11:26] LABS: Anisocytosis 1+; Hypochromasia 1+; Polychromasia RARE
[2024-08-02 11:32] LABS: Bedside Glucose 170 mg/dL (74-106)
[2024-08-02] MEDS: Piperacil/Tazobactam 3.375 GM in 0.9% Normal Saline (50mL MB+) 50 ML IV ×2 (11:32→21:03)
[2024-08-02 11:44] LABS: BNP,B-Type NATRIURETIC PEPTIDE 1223.7 pg/mL (0-100)
--- NOTE | 2024-08-02 13:38 | PCM.CONS.GEN ---
Assessment & Plan Assessment/Plan (1) Acute on chronic hypoxic respiratory failure: (2) Encephalopathy: (3) COVID-19: PLAN: On dex. Will start remdesivir. Covid (+) 07/31 here. On empiric zosyn for possible bacterial component. Will follow, thank you HPI Consult Data Date of Consult: 08/02/24 HPI Narrative Reason for Consultation: covid HPI Narrative: ABRAHAN LOOIMS, is a 69 F with cirrhosis, copd on 4L home O2, recent admit for several weeks at [place]. Came back 07/27 with confusion, n/v, not feeling well. Transferred here 07/30, covid (+). On dex, zosyn, vanc has been stopped. Denies fever, feeling ok today, on airvo with increased O2 reqs. She is not sure if she's had covid vaccine. No abd pain, no sputum, no rash. Full ROS performed and neg except as noted above. [facility] Medical History (Updated 08/02/24 @ 13:[address] Kal Llanos MD) (HFpEF) heart failure with preserved ejection fraction Anemia of chronic disease History of GI bleed PAF (paroxysmal atrial fibrillation) CAD (coronary artery disease) Chronic hypoxic respiratory failure, on home oxygen therapy COPD (chronic obstructive pulmonary disease) Former tobacco use Hypothyroidism Anxiety and depression Hepatic cirrhosis HLD (hyperlipidemia) HTN (hypertension) Chronic anemia Stage 3b chronic kidney disease Home Medications ?Medication ?Instructions ?Recorded ?Last Taken ?Type acetaminophen 325 mg capsule 650 mg PO Q12H PRN fever or pain 07/31/24 Unknown History albuterol sulfate 90 mcg/actuation 1 puff inhalation Q6H PRN copd 07/31/24 Unknown History aerosol inhaler apixaban 5 mg tablet (Eliquis) 5 mg PO BID 07/31/24 Unknown History aspirin 81 mg tablet,delayed 81 mg PO DAILY 07/31/24 Unknown History release (Adult Low Dose Aspirin) bumetanide 2 mg tablet 2 mg PO BID chf 07/31/24 Unknown History citalopram 20 mg tablet 20 mg PO DAILY 07/31/24 Unknown History empagliflozin 10 mg tablet 10 mg PO DAILY 07/31/24 Unknown History (Jardiance) ferrous fumarate 100 mg iron-vit C 1 tab PO QODAY supplement 07/31/24 Unknown History 300 mg-folic acid 1 mg tablet furosemide 40 mg tablet 40 mg PO BID 07/31/24 Unknown History ipratropium 0.5 mg-albuterol 3 mg 3 ml inhalation Q4H PRN sob 07/31/24 Unknown History (2.5 mg base)/3 mL nebulization soln levothyroxine 25 mcg tablet 25 mcg PO DAILY 07/31/24 Unknown History melatonin 5 mg capsule 5 mg PO QHS PRN PRN insomnia 07/31/24 Unknown History metoprolol tartrate 25 mg tablet 12.5 mg PO BID bp 07/31/24 Unknown History midodrine 10 mg tablet 10 mg PO TID hypotension 07/31/24 Unknown History nitroglycerin 0.4 mg sublingual 0.4 mg sublingual Q5M PRN chest 07/31/24 Unknown History tablet pain pantoprazole 40 mg tablet,delayed 40 mg PO DAILY 07/31/24 Unknown History release potassium chloride 20 mEq 20 meq PO DAILY 07/31/24 Unknown History tablet,extended release(part/cryst) (Klor-Con M) promethazine 25 mg tablet 25 mg PO Q8H PRN PRN n/v 07/31/24 Unknown History simvastatin 40 mg tablet 40 mg PO QHS 07/31/24 Unknown History Allergy/AdvReac Type Severity Reaction Status Date / Time sulfamethoxazole (From Allergy Mild Hives Verified 07/30/24 19:58 Bactrim) trimethoprim (From Bactrim) Allergy Mild Hives Verified 07/30/24 19:58 Family History Mother Diabetes Hypertension Heart disease CVA (cerebral vascular accident) Father Diabetes Hypertension Heart disease Uncle Kidney disease Surgical History History of hernia repair History of coronary artery stent placement S/P CABG (coronary artery bypass graft) Social History household members: none housing: senior living Smoking Status: Former smoker how long ago did patient quit smoking: Quit ~ 14 years ago, smoking 0.5-1/2 ppd since 14 years old until quit. alcohol intake: never substance use type: does not use Physical Exam Const alert and no apparent distress General Appearance: cooperative HEENT normocephalic and head/scalp atraumatic Eyes PERRL and EOMs intact bilaterally Neck supple and No nodes Resp Auscultation: diminished lung sounds Cardio regular rate and regular rhythm GI soft to palpation, non-tender and non-distended Extremity General Extremity: edema Skin no rashes or lesions noted Neuro CN's II-XII intact bilaterally Medical Records Data Medical Nutrition Assessment Dietitian: Malnutrition Criteria Met Start: 07/31/24 14:51 Freq: Status: Active Protocol: Document 07/31/24 14:51 [facility] (Rec: 07/31/24 14:51 [facility] [id number]) Nutrition Malnutrition Evidence of Malnutrition Exists Yes Malnutrition (severe): Acute Illness/Injury Evidenced By Suboptimal Energy Intake ( Severe),Weight Loss (Severe) Clinical Problem Acute Disease or Injury Related Malnutrition Etiology related to acute illness and inadequate energy intake Signs/Symptoms as evidenced by 14.1% unintended wt loss and po intake meeting <75% of est nutritional needs x 2 months Status Active Problem Recommendation Dietitian Recommendations/Changes Will liberalize diet to regular no added salt w/ 4 oz chocolate CIB w/ meals d/t signs and symptoms of malnutrition 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 08/02/24 10:40 08/02/24 07:17 Labs: Laboratory Results - last 24 hr 08/01/24 10:45: Blood Type O POSITIVE, Antibody Screen NEGATIVE, Crossmatch See Detail 08/01/24 18:23: POC Glucose 179 H 08/02/24 00:59: POC Glucose 185 H 08/02/24 05:18: POC Glucose 182 H 08/02/24 07:17: Sodium 150 H, Potassium 3.6, Chloride 119 H, Carbon Dioxide 22.0, Anion Gap 9, BUN 63 H, Creatinine 1.55 H, Estim Creat Clear Calc 29.92, Est GFR (MDRD) Af Amer 42 L, Est GFR (MDRD) Non-Af 35 L, BUN/Creatinine Ratio 40.6 H, Glucose 192 H, Hemoglobin A1c 5.0, Calcium 9.4, Total Bilirubin 4.00 H, AST 65 H, ALT 40, Alkaline Phosphatase 99, Total Protein 6.2 L, Albumin 3.2, Globulin 3.0, Albumin/Globulin Ratio 1.1, Procalcitonin 0.19 H 08/02/24 10:40: WBC 10.2, RBC 2.58 L, Hgb 7.9 L, Hct 26.8 L, MCV 103.9 H, MCH 30.6, MCHC 29.5 L, RDW Std Deviation 111.4 H, RDW Coeff of Melody 30.3 H, Plt Count 149 L, MPV 10.4, Immature Gran % (Auto) 0.900, Neut % (Auto) 87.6 H, Lymph % (Auto) 5.3 L, [place] % (Auto) 6.1, Eos % (Auto) 0.0, Baso % (Auto) 0.1, Absolute Neuts (auto) 8.9 H, Absolute Lymphs (auto) 0.54 L, Nucleated RBC % 0.6, Polychromasia RARE, Hypochromasia 1+, Anisocytosis 1+, C-React Prot Ext Range 21.70 H, B-Natriuretic Peptide 1223.7 H, Free T3 pg/dL 4.4 H 08/02/24 11:14: POC Glucose 170 H Micro: Microbiology 08/02/24 10:40 Nasal Secretion MRSA (PCR) - Final 07/31/24 14:15 Urine Catheter - Hutson Urine Culture - Final Presumptive C albicans 07/31/24 14:15 Urine Catheter - [place] Legionella Antigen - Final 07/31/24 14:15 Urine Catheter - [place]son Streptococcus pneumoniae Antigen (M - Final Imaging Radiology Impression Abdomen Ultrasound 08/02/24 05:55 IMPRESSION: Gallbladder sludge. Cirrhosis with a small amount of ascites. Electronically Signed: Dionicio Osorio MD at 11:17 EDT , Chest X-Ray 08/02/24 06:15 IMPRESSION: Poor inspiration with some bibasilar atelectasis Electronically Signed: Dionicio Osorio MD at 8:56 EDT Reading Location ID and State: [id number] / [facility] Tel , Service support ,
--- NOTE | 2024-08-02 14:23 | CHAPLAIN ---
Type of Pastoral Visit ___ Initial Visit ___ Follow-up Visit ___ On-call Visit ___ General Patient Visit ___ Spiritual Assessment ___ Family Conference ___ Bereavement ___ Rapid Response ___ Code Blue ___ Other (describe below) Pastoral Care Referral From ___ Patient ___ Family ___ Nurse ___ Physician ___ Mapper ___ Relocation Manager ___ Other (describe below) Sacrament/Intervention ___ Active listening ___ Anointing ___ Moravian ___ Bereavement ___ Communion ___ Yenni exploration ___ ___ Life review ___ Prayer ___ Reconciliation ___ Sacrament of Sick ___ Supportive presence ___ Wedding ___ Other (describe below) Pastoral Comments phone call made into isolation room; voicemail states that patient is not available at this time
--- NOTE | 2024-08-02 15:42 | CASEMGMT ---
RN CM called daughter to discuss DC planning, left vm.
[2024-08-02] MEDS: Remdesivir 200 MG in 0.9% Normal Saline (250mL Bag) 210 ML 125 MG IV (16:06)
--- NOTE | 2024-08-02 16:27 | PCM.PN.REN ---
Subjective Subjective somnolent Objective Data Objective Data Vital Signs: Vital Signs Temp Pulse Resp BP Pulse Ox O2 Del Method O2 Flow Rate 97.9 F 58 L 16 124/65 H 94 Airvo 60 08/02/24 12:00 08/02/24 14:42 08/02/24 14:42 08/02/24 12:00 08/02/24 14:42 08/02/24 14:00 08/02/24 14:03 FiO2 55 08/02/24 14:42 Oxygen Flow Rate (L/min) 60 Oxygen Delivery Method Airvo Weight: 74.1 kg Body Mass Index (BMI) 35.3 Intake & Output: Intake and Output for Last 24 Hours 07/31/24 08/01/24 08/02/24 23:59 23:59 23:59 Intake Total 1035 / 1035 1236.00 / 1236.00 631.67 / 631.67 Output Total 1200 / 1200 1000 / 1000 850 / 850 Balance -165 / -165 236.00 / 236.00 -218.33 / -218.33 Medical Nutrition Assessment Dietitian: Malnutrition Criteria Met Start: 07/31/24 14:51 Freq: Status: Active Protocol: Document 07/31/24 14:51 DAY (Rec: 07/31/24 14:51 DAY [id number]) Nutrition Malnutrition Evidence of Malnutrition Exists Yes Malnutrition (severe): Acute Illness/Injury Evidenced By Suboptimal Energy Intake ( Severe),Weight Loss (Severe) Clinical Problem Acute Disease or Injury Related Malnutrition Etiology related to acute illness and inadequate energy intake Signs/Symptoms as evidenced by 14.1% unintended wt loss and po intake meeting <75% of est nutritional needs x 2 months Status Active Problem Recommendation Dietitian Recommendations/Changes Will liberalize diet to regular no added salt w/ 4 oz chocolate CIB w/ meals d/t signs and symptoms of malnutrition 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 08/02/24 10:40 08/02/24 07:17 Labs: Laboratory Results - last 24 hr 08/01/24 10:45: Crossmatch See Detail 08/01/24 18:23: POC Glucose 179 H 08/02/24 00:59: POC Glucose 185 H 08/02/24 05:18: POC Glucose 182 H 08/02/24 07:17: Sodium 150 H, Potassium 3.6, Chloride 119 H, Carbon Dioxide 22.0, Anion Gap 9, BUN 63 H, Creatinine 1.55 H, Estim Creat Clear Calc 29.92, Est GFR (MDRD) Af Amer 42 L, Est GFR (MDRD) Non-Af 35 L, BUN/Creatinine Ratio 40.6 H, Glucose 192 H, Hemoglobin A1c 5.0, Calcium 9.4, Total Bilirubin 4.00 H, AST 65 H, ALT 40, Alkaline Phosphatase 99, Total Protein 6.2 L, Albumin 3.2, Globulin 3.0, Albumin/Globulin Ratio 1.1, Procalcitonin 0.19 H 08/02/24 10:40: WBC 10.2, RBC 2.58 L, Hgb 7.9 L, Hct 26.8 L, MCV 103.9 H, MCH 30.6, MCHC 29.5 L, RDW Std Deviation 111.4 H, RDW Coeff of Melody 30.3 H, Plt Count 149 L, MPV 10.4, Immature Gran % (Auto) 0.900, Neut % (Auto) 87.6 H, Lymph % (Auto) 5.3 L, [place] % (Auto) 6.1, Eos % (Auto) 0.0, Baso % (Auto) 0.1, Absolute Neuts (auto) 8.9 H, Absolute Lymphs (auto) 0.54 L, Nucleated RBC % 0.6, Polychromasia RARE, Hypochromasia 1+, Anisocytosis 1+, C-React Prot Ext Range 21.70 H, B-Natriuretic Peptide 1223.7 H, Free T3 pg/dL 4.4 H 08/02/24 11:14: POC Glucose 170 H Micro: Microbiology 08/02/24 10:40 Nasal Secretion MRSA (PCR) - Final 07/31/24 14:15 Urine Catheter - Hutson Urine Culture - Final Presumptive C albicans 07/31/24 14:15 Urine Catheter - [facility] Legionella Antigen - Final 07/31/24 14:15 Urine Catheter - [facility] Streptococcus pneumoniae Antigen (M - Final 07/31/24 14:15 Mucosa - Nose Coronavirus COVID-19 PCR - Final SARS-CoV-2 (COVID 19 PCR) 07/31/24 14:15 Mucosa - Nose Respiratory Panel (PCR) - Final 07/31/24 14:15 Nasal Secretion MRSA (PCR) - Final Radiography Diagnostic Testing: Radiology Impression Abdomen Ultrasound 08/02/24 05:55 IMPRESSION: Gallbladder sludge. Cirrhosis with a small amount of ascites. Electronically Signed: Dionicio Osorio MD at 11:17 EDT , Chest X-Ray 08/02/24 06:15 IMPRESSION: Poor inspiration with some bibasilar atelectasis Electronically Signed: Dionicio Osorio MD at 8:56 EDT , Physical Exam Const no apparent distress and average body habitus General Appearance: well developed Orientation / Consciousness: oriented to person and lethargic Nutritional Appearance: obese HEENT normocephalic Neck no lymphadenopathy Resp no use of accessory muscles and clear to auscultation bilaterally Auscultation: diminished lung sounds Cardio regular rate GI non-tender and non-distended Auscultation: normoactive bowel sounds Skin no rashes or lesions noted General Skin Exam: ecchymosis Neuro Sensorium / Orientation: lethargic and somnolent Psych cooperative Memory / Cognition: cognition impaired Assessment & Plan Assessment/Plan (1) Hepatorenal syndrome: PLAN: DENILSON vs CKD cr is relatively stable for last 3 days. urine output is present Hypernatremia. sodium slightly better some respiratory decompensation now. not sure if its covid or fluid related. CXR is not very impressive I am ok with lasix if needed will dw hospitalist
[2024-08-02] MEDS: Furosemide 20 MG/2 ML VIAL IV (17:01)
[2024-08-02] MEDS: 0.9% Saline Lock 10 ML Syringe IV (21:05)
[2024-08-02] MEDS: Atorvastatin Calcium 20 MG Tablet PO (21:06)
[2024-08-03] VITALS (12 sets, daily range): BP systolic 115–131; BP diastolic 52–64; PULSE 45–52; RESP 16–24; TEMP 36.4–36.6; O2SAT 92–96; BMI 35.9
[2024-08-03 00:20] LABS: Bedside Glucose 173 mg/dL (74-106)
[2024-08-03] MEDS: Albumin Human 25% (100 mL) 25 GM/100 ML BAG IV ×2 (01:08→08:52)
[2024-08-03] MEDS: Piperacil/Tazobactam 3.375 GM in 0.9% Normal Saline (50mL MB+) 50 ML IV ×3 (05:34→21:56)
[2024-08-03 05:47] LABS: Allen Test Positive; Base Excess 4 mmol/L (-2 to +2); Bicarbonate 28.2 mmol/L (22-26); Blood Gas Specimen Type ART; Comment 60L. 68%; Mode Not entered; O2 Delivery Device airvo; PO2 63 mmHG (75-100); SITE R Radial; SO2 93 % (95-99); Total Carbon Dioxide 29 mmol/L; pCO2 41.1 mmHg (35-45); pH 7.44 (7.35-7.45)
[2024-08-03 06:15] LABS: Bedside Glucose 171 mg/dL (74-106)
[2024-08-03] MEDS: Aspirin E.C. 81 MG Tablet PO (08:53)
[2024-08-03] MEDS: Midodrine HCl 5 MG Tablet 10 MG PO ×3 (08:54→17:52)
[2024-08-03] MEDS: Menthol/Lanolin/Calamine/Znox 113 GM Tube 1 APPLIC TOPICAL ×2 (09:11→21:53)
[2024-08-03] MEDS: rifAXIMin 550 MG Tablet PO ×2 (09:13→21:55)
[2024-08-03] MEDS: Citalopram 20 MG Tablet PO (09:13)
[2024-08-03] MEDS: Clotrimazole 1 APPLIC Tube TOPICAL ×2 (09:13→21:55)
[2024-08-03] MEDS: Pantoprazole Sodium 40 MG Tablet PO (09:13)
[2024-08-03] MEDS: dexAMETHasone 10 MG/ML Vial 6 MG IV (09:17)
--- NOTE | 2024-08-03 09:32 | CASEMGMT ---
CHILO ACOSTA Assessment: Patient with confusion, RN KARLA called pt daughter for initial transition planning/care coordination assessment. RN KARLA introduced self and role at [facility], pt daughter voices understanding and consents to assessment. Care providers, pharmacy, and demographics verified/updated. Strata: 2 Admitting Dx: Liver Cirrhosis/Hepatic Enceph, DENILSON on CKD, GI bleed PCP: [facility] Specialists: Wanda, Apiculture Teacher; Lumber Material Handler and GI doctors- does not recall name Preferred Pharmacy:[facility] Prescription Benefit: yes LNOK: Misa, Daughter; Héctor, Son. Living Arrangements: Pt lives alone in a mobile home with 5 steps and handrails to enter. ADLs: Pt was I at home prior to hospitalization. Transportation: Pt drove self prior to hospitalization. DME: walker, bedside commode HHC/SNF: Previously used HHC, does not recall what agency. Pt daughter would like pt to go to [facility] TCU or rehab units, denies wanting a list of local SNF. Pt daughter states no further concerns/needs. SW or CM to follow. Advised to ask CM if any further question/concerns/needs arise, voices understanding. CHILO ACOSTA notified RN KARLA on floor of family preference for SNF. Pt Goal: SNF or Rehab Plan: SNF or Rehab unit, follow plan of care. Eun WOO CM
[2024-08-03] MEDS: Budesonide Respules 0.5 MG/2 ML AMPUL.NEB. INHALATION ×2 (10:00→20:43)
[2024-08-03] MEDS: Ipratropium/Albuterol Sulfate 3 ML AMPUL.NEB INHALATION ×3 (10:00→20:43)
--- NOTE | 2024-08-03 10:14 | PN.CC_ITS ---
Assessment & Plan Assessment/Plan (1) Acute on chronic hypoxic respiratory failure: PLAN: Plan RECOMMENDATIONS: 1. Supplemental oxygen to maintain saturations at or above 90%. 2. Awaiting results of morning CBC and BMP 3. Continue empiric antibiotics. 4. Continue remdesivir and Decadron as ordered. 5. Continue bronchodilators. 6. Transfuse if hemoglobin drops below 7 g/dL. Continue PPI therapy. IMPRESSIONS: 1. Acute on chronic hypoxemic respiratory failure Most likely multifactorial in etiology with underlying COPD, acute COVID-19 pneumonia and possible heart failure with preserved ejection fraction contributing. Unfortunately, the patient has underlying multisystem organ dysfunction, which will make it difficult to optimize her from a respiratory perspective. At this time, I agree with continuing scheduled bronchodilators, remdesivir and Decadron as ordered. In addition, I would plan to continue empiric antibiotics to cover for secondary bacterial pneumonia as well. Underlying PE would also be another contributing etiology. However, I agree with holding off on CTA chest given underlying renal dysfunction. If the patient were to worsen from a respiratory perspective, could consider empiric initiation of a weight-based heparin infusion along with lower extremity Doppler study. 2. Decompensated CERVANTES cirrhosis/anemia Continue medical management per gastroenterology recommendations. Continue to monitor H&H and transfuse if hemoglobin drops below 7 g/dL. Continue PPI therapy. Continue lactulose and rifaximin. 3. Acute versus chronic kidney disease, with concern for hepatorenal syndrome Nephrology is currently following to assist with medical management. Recommend conservative use of IV fluids. Continue scheduled midodrine as ordered. 4. History of heart failure with preserved ejection fraction/coronary artery disease status post CABG/questionable GI bleed/diabetes mellitus/history of atrial fibrillation/obesity Complicates care, management, recovery and prognosis. The patient's Eliquis remains on hold. This note was generated with [employer] dictation software. It may contain incorrect words, spelling, and punctuation that were not noted in checking the note before signing. Subjective Subjective The patient was seen and examined at the bedside this morning. Events from the last 24 hours have been reviewed. The patient is currently afebrile, hemodynamically stable and maintaining appropriate oxygen saturations on heated high flow oxygen with a flow rate of 60 L/min and FiO2 of 66%. There has been no significant interval change in the patient's respiratory status since yesterday. She was started on remdesivir by infectious diseases. Morning labs are still pending. Objective Data Objective Data The patient's most recent lab work, culture data and imaging studies have all been personally reviewed. Surface echocardiogram demonstrated normal LV size and function with an ejection fraction of 65%. Pulmonary artery systolic pressure was estimated to be 45 mmHg. COVID PCR was positive on July 31. Blood and sputum cultures are pending. Vital Signs: Vital Signs Temp Pulse Resp BP Pulse Ox O2 Del Method O2 Flow Rate 97.9 F 50 L 16 128/55 H 94 Airvo 60 08/03/24 09:00 08/03/24 09:31 08/03/24 09:00 08/03/24 09:31 08/03/24 09:00 08/03/24 09:00 08/02/24 14:03 FiO2 68 08/03/24 05:38 Oxygen Flow Rate (L/min) 60 Oxygen Delivery Method Airvo Weight: 166 lb 3.657 oz Body Mass Index (BMI) 35.9 Intake & Output: Intake and Output for Last 24 Hours 08/01/24 08/02/24 08/03/24 23:59 23:59 23:59 Intake Total 1236.00 / 1236.00 981.67 / 981.67 200 / 200 Output Total 1000 / 1000 1101 / 1101 Balance 236.00 / 236.00 -119.33 / -119.33 200 / 200 Medical Nutrition Assessment Dietitian: Malnutrition Criteria Met Start: 07/31/24 14:51 Freq: Status: Active Protocol: Document 07/31/24 14:51 DAY (Rec: 07/31/24 14:51 DAY [id number]) Nutrition Malnutrition Evidence of Malnutrition Exists Yes Malnutrition (severe): Acute Illness/Injury Evidenced By Suboptimal Energy Intake ( Severe),Weight Loss (Severe) Clinical Problem Acute Disease or Injury Related Malnutrition Etiology related to acute illness and inadequate energy intake Signs/Symptoms as evidenced by 14.1% unintended wt loss and po intake meeting <75% of est nutritional needs x 2 months Status Active Problem Recommendation Dietitian Recommendations/Changes Will liberalize diet to regular no added salt w/ 4 oz chocolate CIB w/ meals d/t signs and symptoms of malnutrition 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 08/02/24 10:40 08/02/24 07:17 Labs: Laboratory Results - last 24 hr 08/02/24 07:17: Procalcitonin 0.19 H 08/02/24 10:40: WBC 10.2, RBC 2.58 L, Hgb 7.9 L, Hct 26.8 L, MCV 103.9 H, MCH 30.6, MCHC 29.5 L, RDW Std Deviation 111.4 H, RDW Coeff of Melody 30.3 H, Plt Count 149 L, MPV 10.4, Immature Gran % (Auto) 0.900, Neut % (Auto) 87.6 H, Lymph % (Auto) 5.3 L, [place] % (Auto) 6.1, Eos % (Auto) 0.0, Baso % (Auto) 0.1, Absolute Neuts (auto) 8.9 H, Absolute Lymphs (auto) 0.54 L, Nucleated RBC % 0.6, Polychromasia RARE, Hypochromasia 1+, Anisocytosis 1+, C-React Prot Ext Range 21.70 H, B-Natriuretic Peptide 1223.7 H, Free T3 pg/dL 4.4 H 08/02/24 11:14: POC Glucose 170 H 08/02/24 23:59: POC Glucose 173 H 08/03/24 05:38: POC Glucose 171 H Micro: Microbiology 07/31/24 15:20 Blood Culture (Wb) - Anticubital Left Blood Culture - Preliminary No growth in 48 hours. 08/02/24 10:40 Nasal Secretion MRSA (PCR) - Final 07/31/24 14:15 Urine Catheter - Hutson Urine Culture - Final Presumptive C albicans 07/31/24 14:15 Urine Catheter - [place] Legionella Antigen - Final 07/31/24 14:15 Urine Catheter - [facility] Streptococcus pneumoniae Antigen (M - Final 07/31/24 14:15 Mucosa - Nose Coronavirus COVID-19 PCR - Final SARS-CoV-2 (COVID 19 PCR) 07/31/24 14:15 Mucosa - Nose Respiratory Panel (PCR) - Final 07/31/24 14:15 Nasal Secretion MRSA (PCR) - Final ABG Data ABG results: ABG 08/03/24 05:43 Specimen Type ART Sample Site R Radial pH 7.44 Bicarbonate Actual 28.2 H Total CO2 29 Base Excess 4 H O2 Saturation 93 L O2 % 68.0 ABG pCO2 41.1 ABG pO2 63 L Josue Test Positive O2 Delivery Device airvo Vent Mode Not entered Clinical Comments 60L. 68% Radiography Diagnostic Testing: Radiology Impression Echocardiogram 07/30/24 21:28 Interpretation Summary Normal left ventricle. Left ventricular systolic function is normal. The left ventricular ejection fraction is 65 %. Pulmonary artery systolic pressure is 45 mmHg. Ordering Physician: Geeta Lynn Referring Physician: Zuhair Trinh Performed By: Rita Kaye RCS Abdomen Ultrasound 08/02/24 05:55 IMPRESSION: Gallbladder sludge. Cirrhosis with a small amount of ascites. Electronically Signed: Dionicio Osorio MD at 11:17 EDT , Physical Exam Const alert and no apparent distress Constitutional Narrative: Obese. General Appearance: cooperative and ill appearing HEENT normocephalic and head/scalp atraumatic Eyes EOMs intact bilaterally, conjunctivae normal and no scleral icterus Neck supple General: trachea midline Chest inspection of chest normal Resp Auscultation: diminished lung sounds; Negative for rales, rhonchi or wheezes Cardio regular rate and regular rhythm GI normal to inspection, nondistended, normoactive bowel sounds Extremity no clubbing, cyanosis or edema Skin no rashes or lesions noted Neuro CN's II-XII intact bilaterally and no focal motor deficits Psych Mood & Affect: flat affect Charges/Coding Visit Charges Inpatient E&M: 76104 Subs Hosp L2
--- NOTE | 2024-08-03 10:17 | PCM.PN.ID ---
Physical Exam Narrative Not feeling well, some cough/dyspnea, no fever. On airvo. Const alert Orientation / Consciousness: lethargic Resp Auscultation: diminished lung sounds Cardio Rate: tachycardic GI soft to palpation, non-tender and non-distended Skin no rashes or lesions noted ID ID: Route of nutrition/ use of supplements: [] Nutritional Intake: [] IV Site: [] Hutson Catheter: [] Assessment & Plan Assessment/Plan (1) Acute on chronic hypoxic respiratory failure: (2) Encephalopathy: (3) COVID-19: PLAN: On dex. Day 2 of remdesivir. AM labs pending, will order LFT as well. Covid (+) 07/31 here. On empiric zosyn for possible bacterial component. Will follow
--- NOTE | 2024-08-03 11:03 | PCM.PN.REN ---
Subjective Subjective events noted Objective Data Objective Data Vital Signs: Vital Signs Temp Pulse Resp BP Pulse Ox O2 Del Method O2 Flow Rate 97.9 F 50 L 16 128/55 H 94 Airvo 60 08/03/24 09:00 08/03/24 09:31 08/03/24 09:00 08/03/24 09:31 08/03/24 10:18 08/03/24 09:00 08/03/24 10:18 FiO2 68 08/03/24 05:38 Oxygen Flow Rate (L/min) 60 Oxygen Delivery Method Airvo Weight: 75.4 kg Body Mass Index (BMI) 35.9 Intake & Output: Intake and Output for Last 24 Hours 08/01/24 08/02/24 08/03/24 23:59 23:59 23:59 Intake Total 1236.00 / 1236.00 981.67 / 981.67 200 / 200 Output Total 1000 / 1000 1101 / 1101 Balance 236.00 / 236.00 -119.33 / -119.33 200 / 200 Medical Nutrition Assessment Dietitian: Malnutrition Criteria Met Start: 07/31/24 14:51 Freq: Status: Active Protocol: Document 07/31/24 14:51 DAY (Rec: 07/31/24 14:51 SLA [id number]) Nutrition Malnutrition Evidence of Malnutrition Exists Yes Malnutrition (severe): Acute Illness/Injury Evidenced By Suboptimal Energy Intake ( Severe),Weight Loss (Severe) Clinical Problem Acute Disease or Injury Related Malnutrition Etiology related to acute illness and inadequate energy intake Signs/Symptoms as evidenced by 14.1% unintended wt loss and po intake meeting <75% of est nutritional needs x 2 months Status Active Problem Recommendation Dietitian Recommendations/Changes Will liberalize diet to regular no added salt w/ 4 oz chocolate CIB w/ meals d/t signs and symptoms of malnutrition 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 Data 08/02/24 10:40 08/01/24 06:55 Labs: Laboratory Results - last 24 hr 08/02/24 07:17: Sodium Cancelled, Potassium Cancelled, Chloride Cancelled, Carbon Dioxide Cancelled, Anion Gap Cancelled, BUN Cancelled, Creatinine Cancelled, Estim Creat Clear Calc Cancelled, Est GFR (MDRD) Af Amer Cancelled, Est GFR (MDRD) Non-Af Cancelled, BUN/Creatinine Ratio Cancelled, Glucose Cancelled, Calcium Cancelled, Total Bilirubin Cancelled, AST Cancelled, ALT Cancelled, Alkaline Phosphatase Cancelled, Total Protein Cancelled, Albumin Cancelled, Globulin Cancelled, Albumin/Globulin Ratio Cancelled 08/02/24 10:40: Polychromasia RARE, Hypochromasia 1+, Anisocytosis 1+, C-React Prot Ext Range 21.70 H, B-Natriuretic Peptide 1223.7 H 08/02/24 11:14: POC Glucose 170 H 08/02/24 23:59: POC Glucose 173 H 08/03/24 05:38: POC Glucose 171 H Micro: Microbiology 07/31/24 15:20 Blood Culture (Wb) - Anticubital Left Blood Culture - Preliminary No growth in 48 hours. 08/02/24 10:40 Nasal Secretion MRSA (PCR) - Final 07/31/24 14:15 Urine Catheter - Hutson Urine Culture - Final Presumptive C albicans 07/31/24 14:15 Urine Catheter - Hutson Legionella Antigen - Final 07/31/24 14:15 Urine Catheter - Hutson Streptococcus pneumoniae Antigen (M - Final 07/31/24 14:15 Mucosa - Nose Coronavirus COVID-19 PCR - Final SARS-CoV-2 (COVID 19 PCR) 07/31/24 14:15 Mucosa - Nose Respiratory Panel (PCR) - Final 07/31/24 14:15 Nasal Secretion MRSA (PCR) - Final ABG Data ABG results: ABG 08/03/24 05:43 Specimen Type ART Sample Site R Radial pH 7.44 Bicarbonate Actual 28.2 H Total CO2 29 Base Excess 4 H O2 Saturation 93 L O2 % 68.0 ABG pCO2 41.1 ABG pO2 63 L Josue Test Positive O2 Delivery Device airvo Vent Mode Not entered Clinical Comments 60L. 68% Radiography Diagnostic Testing: Radiology Impression Echocardiogram 07/30/24 21:28 Interpretation Summary Normal left ventricle. Left ventricular systolic function is normal. The left ventricular ejection fraction is 65 %. Pulmonary artery systolic pressure is 45 mmHg. Ordering Physician: Geeta Lynn Referring Physician: Zuhair Trinh Performed By: Rita Kaye RCS Abdomen Ultrasound 08/02/24 05:55 IMPRESSION: Gallbladder sludge. Cirrhosis with a small amount of ascites. Electronically Signed: Dionicio Osorio MD at 11:17 EDT , Physical Exam Const no apparent distress and average body habitus General Appearance: well developed Orientation / Consciousness: oriented to person and lethargic Nutritional Appearance: obese HEENT normocephalic Neck no lymphadenopathy Resp no use of accessory muscles and clear to auscultation bilaterally Auscultation: diminished lung sounds Cardio regular rate GI non-tender and non-distended Auscultation: normoactive bowel sounds Skin no rashes or lesions noted General Skin Exam: ecchymosis Neuro Sensorium / Orientation: lethargic and somnolent Psych cooperative Memory / Cognition: cognition impaired Assessment & Plan Assessment/Plan (1) Hepatorenal syndrome: PLAN: DENILSON vs CKD cr is relatively stable for last 3 days. urine output is present Hypernatremia. sodium slightly better respiratory decompensation now. not sure if its covid or fluid related. CXR is not very impressive received lasix yesterday. urine output 1.1 L pending labs today. if cr is stable repeat lasix 40 mg dw hospitalist
[2024-08-03] MEDS: Remdesivir 100 MG in 0.9% Normal Saline (250mL Bag) 230 ML 125 MG IV (11:43)
[2024-08-03 12:23] LABS: Bedside Glucose 189 mg/dL (74-106)
--- NOTE | 2024-08-03 15:00 | PN.HOSP_ITS ---
Reason for Visit Reason for Visit: Diagnoses Encephalopathy, unspecified (07/31/24) Acute and chronic respiratory failure with hypoxia (07/31/24) Hepatorenal syndrome (07/31/24) COVID-19 (07/31/24) Subjective Subjective Patient reports she thinks her breathing may be very mildly better but still significant shortness of breath, no significant cough at this time Objective Data Objective Data Vital Signs: Vital Signs Temp Pulse Resp BP Pulse Ox O2 Del Method O2 Flow Rate 97.9 F 52 L 24 H 128/55 H 94 Airvo 60 08/03/24 09:00 08/03/24 10:00 08/03/24 10:00 08/03/24 09:31 08/03/24 10:18 08/03/24 10:00 08/03/24 10:18 FiO2 65 08/03/24 10:00 Oxygen Flow Rate (L/min) 60 Oxygen Delivery Method Airvo Weight: 75.4 kg Body Mass Index (BMI) 35.9 Intake & Output: Intake and Output for Last 24 Hours 08/01/24 08/02/24 08/03/24 23:59 23:59 23:59 Intake Total 1236.00 / 1236.00 981.67 / 981.67 550 / 550 Output Total 1000 / 1000 1101 / 1101 350 / 350 Balance 236.00 / 236.00 -119.33 / -119.33 200 / 200 Medical Nutrition Assessment Dietitian: Malnutrition Criteria Met Start: 07/31/24 14:51 Freq: Status: Active Protocol: Document 07/31/24 14:51 DAY (Rec: 07/31/24 14:51 DAY [id number]) Nutrition Malnutrition Evidence of Malnutrition Exists Yes Malnutrition (severe): Acute Illness/Injury Evidenced By Suboptimal Energy Intake ( Severe),Weight Loss (Severe) Clinical Problem Acute Disease or Injury Related Malnutrition Etiology related to acute illness and inadequate energy intake Signs/Symptoms as evidenced by 14.1% unintended wt loss and po intake meeting <75% of est nutritional needs x 2 months Status Active Problem Recommendation Dietitian Recommendations/Changes Will liberalize diet to regular no added salt w/ 4 oz chocolate CIB w/ meals d/t signs and symptoms of malnutrition 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 08/02/24 10:40 08/01/24 06:55 Labs: Laboratory Results - last 24 hr 08/02/24 07:17: Sodium Cancelled, Potassium Cancelled, Chloride Cancelled, Carbon Dioxide Cancelled, Anion Gap Cancelled, BUN Cancelled, Creatinine Cancelled, Estim Creat Clear Calc Cancelled, Est GFR (MDRD) Af Amer Cancelled, Est GFR (MDRD) Non-Af Cancelled, BUN/Creatinine Ratio Cancelled, Glucose Cancelled, Calcium Cancelled, Total Bilirubin Cancelled, AST Cancelled, ALT Cancelled, Alkaline Phosphatase Cancelled, Total Protein Cancelled, Albumin Cancelled, Globulin Cancelled, Albumin/Globulin Ratio Cancelled 08/02/24 23:59: POC Glucose 173 H 08/03/24 05:38: POC Glucose 171 H 08/03/24 11:47: POC Glucose 189 H Micro: Microbiology 07/31/24 15:20 Blood Culture (Wb) - Anticubital Left Blood Culture - Preliminary No growth in 48 hours. 08/02/24 10:40 Nasal Secretion MRSA (PCR) - Final 07/31/24 14:15 Urine Catheter - Hutson Urine Culture - Final Presumptive C albicans 07/31/24 14:15 Urine Catheter - Hutson Legionella Antigen - Final 07/31/24 14:15 Urine Catheter - Hutson Streptococcus pneumoniae Antigen (M - Final 07/31/24 14:15 Mucosa - Nose Coronavirus COVID-19 PCR - Final SARS-CoV-2 (COVID 19 PCR) 07/31/24 14:15 Mucosa - Nose Respiratory Panel (PCR) - Final 07/31/24 14:15 Nasal Secretion MRSA (PCR) - Final ABG Data ABG results: ABG 08/03/24 05:43 Specimen Type ART Sample Site R Radial pH 7.44 Bicarbonate Actual 28.2 H Total CO2 29 Base Excess 4 H O2 Saturation 93 L O2 % 68.0 ABG pCO2 41.1 ABG pO2 63 L Josue Test Positive O2 Delivery Device airvo Vent Mode Not entered Clinical Comments 60L. 68% Radiography Diagnostic Testing: Radiology Impression Echocardiogram 07/30/24 21:28 Interpretation Summary Normal left ventricle. Left ventricular systolic function is normal. The left ventricular ejection fraction is 65 %. Pulmonary artery systolic pressure is 45 mmHg. Ordering Physician: Geeta Lynn Referring Physician: Zuhair Trinh Performed By: Rita Kaye RCS Physical Exam Narrative General: Awake and alert HEENT: Atraumatic, normocephalic Eyes: Anicteric, normal conjunctiva, extraocular movements grossly intact Neck: Supple Respiratory: Slight increased respiratory effort, poor airflow throughout but did not appreciate any wheezes at time of exam Cardiovascular: Regular rate GI: Soft, nondistended Extremities: No significant pitting edema Musculoskeletal: Moving all extremities Neuro: No overt focal neurological deficits Skin: No rashes appreciated Psych: Cooperative Assessment & Plan Assessment/Plan (1) Acute on chronic hypoxic respiratory failure: PLAN: Plan #Acute on chronic hypoxic respiratory failure on 2 to 4 L home O2/chronic COPD/COVID-19 positive -Suspect patient's acute on chronic respiratory failure is multifactorial -Patient tested positive for COVID-19 07/31 [facility] negative but patient unable to tell me exact onset of symptoms -She is on roughly 4 L home O2 but now is on high flow nasal cannula -She is on dexamethasone, do not think she can get remdesivir given the elevated creatinine -Labs have now been scheduled -Her diuretics have been held as it was suspected that she had been significantly overdiuresed previously, does not appear to be overtly overloaded on exam and sodium and renal function remain elevated -Patient on inhaled Pulmicort -Obtain sputum culture if able -Chest x-ray on presentation with some right lower lobe atelectasis or infiltrate -Reviewed chest x-ray film, query if there is some worsening of right lower lobe findings -Resume Zosyn, had elevated white blood cell count on presentation with left shift that improved with antibiotics and has infiltrate, is on steroids however do not believe these were started at [facility] facility due to patient only being COVID-positive here so this would not account for her elevated white blood cell count, cannot r/o aspect of pnemonia -Pulmonary/critical care consult -08/03: Patient on nebs, IV dexamethasone, remdesivir due to COVID, Zosyn in the event there is bacterial component. Pulmonology following, discussed with breaker tender this a.m. and infectious disease following. Weaning Airvo as tolerated. Having significant difficulty with vascular access so PICC line ordered, awaiting PICC placement to obtain labs as multiple other times have been unsuccessful. Patient received a dose of Lasix yesterday which did seem to help, on next lab draw if creatinine is stable will give further IV Lasix. Additionally sputum culture obtained and pending # DENILSON versus CKD versus DENILSON on CKDIIIb/hypernatremia -Creatinine 1.55 with a BUN of 63 -Unclear baseline but had been admitted to [facility] last month and was vigorously diuresed to the point that dialysis was anticipated but then she started making urine -Nephrology consulted -Patient has been on gentle D5 due to her kidney function and hypernatremia -[facility] syndrome -Continue midodrine every 8 hours -Received some albumin -08/03: Continuing midodrine, patient's status post albumin and IV fluids. PICC line ordered this a.m. and awaiting placement in the labs as multiple attempts by multiple people were made to obtain labs and this was unsuccessful. Nephrology following, discussed with director of recruitment and admissions #BILLY Cirrhosis -Recently admitted to an [facility] June 2024 with decompensated cirrhosis and was aggressively diuresed -Continue lactulose and Xifaxan -GI consult -abdominal ultrasound pending -08/03: Will check ammonia when we are able to get labs however patient does not seem to have significant change in mental status from yesterday. Patient has lactulose and rifaximin ordered # Chronic heart failure preserved ejection fraction by history -Documented heart failure preserved ejection fraction no no echo in our system -No Lasix at this time given kidney function -Daily weights, I's and O's -Fluid restriction, heart healthy diet -08/03: Continue to monitor weight and respiratory status, may need another dose of IV Lasix pending respiratory progress and creatinine #Encephalopathy suspect metabolic -Patient has had some intermittent altered mental status -Patient has had some waxing and waning mental status -Ammonia only 36 on presentation so lower suspicion that this was hepatic encephalopathy -Antibiotics resumed, cannot rule out pneumonia at this time especially given infiltrate and productive cough but does have COVID-19 which confounds picture -UA not suggestive of UTI -08/03: No significant change from yesterday # Recent GI bleed -Reportedly had recent EGD reportedly showed gastritis and PHG -GI consulted as above -Hemoglobin 8.510/5 and down trended to 7.4 on 08/01, awaiting a.m. hemoglobin -Transfusion threshold of 8 -Continue to hold Eliquis, if continues to drop may need to hold aspirin as well -08/03: Due to full dose anticoagulation being held due to this possible recent GI bleed patient also is not on pharmacologic DVT prophylaxis. Patient has had no overt bleeding since being here, will trial subcu heparin as patient having PE would be potentially catastrophic to her respiratory status Chronic medical problems: # Low TSH -With elevated free T4 -Hold home Synthroid 25 mcg -08/03: Holding Synthroid #Type 2 diabetes mellitus -Glucose checks and sliding scale insulin #GERD -Continue PPI #hx afib -Holding Eliquis, metoprolol with holding parameters #Hx CAD s/p CABG -Patient on aspirin, does not appear to be overtly bleeding at this moment but awaiting a.m. hemoglobin -Metoprolol with holding parameters -Continue statin #DVT ppx: SCDs Katt Torres MD Time spent in the patient's overall evaluation,decision-making process, review of diagnostic data, adjustment of management, discussion with other providers, nursing nursing and ancillary staff involved in patient's care documentation, 39 Minutes Charges/Coding Visit Charges Inpatient E&M: 81919 Subs Hosp L2
--- NOTE | 2024-08-03 15:10 | CHAPLAIN ---
Type of Pastoral Visit ___ Initial Visit ___ Follow-up Visit ___ On-call Visit ___ General Patient Visit ___ Spiritual Assessment ___ Family Conference ___ Bereavement ___ Rapid Response ___ Code Blue ___ Other (describe below) Pastoral Care Referral From ___ Patient ___ Family ___ Nurse ___ Physician ___ Release Of Information Specialist ___ Spiritual Minister ___ Other (describe below) Sacrament/Intervention ___ Active listening ___ Anointing ___ Scientology ___ Bereavement ___ Communion ___ Yenni exploration ___ ___ Life review ___ Prayer ___ Reconciliation ___ Sacrament of Sick ___ Supportive presence ___ Wedding ___ Other (describe below) Pastoral Comments two attempts to contact this patient in isolation room; first attempt and speech therapist answers during an evaluation; second attempt and it goes to voicemail with message that patient is not available
[2024-08-03 18:27] LABS: Bedside Glucose 179 mg/dL (74-106)
--- NOTE | 2024-08-03 18:39 | EX.PCM.PN.GI ---
Subjective Subjective Patient is a little bit more alert and awake today. She is day 5 of acute COVID infection is currently on medical therapy and being seen by infectious disease and the hospitalist service. Objective Data Objective Data Vital Signs: Vital Signs Temp Pulse Resp BP Pulse Ox O2 Del Method O2 Flow Rate 97.9 F 45 L 16 119/52 L 95 Airvo 60 08/03/24 15:00 08/03/24 15:00 08/03/24 15:00 08/03/24 15:00 08/03/24 15:00 08/03/24 15:34 08/03/24 10:18 FiO2 65 08/03/24 10:00 Oxygen Flow Rate (L/min) 60 Oxygen Delivery Method Airvo Weight: 166 lb 3.657 oz Body Mass Index (BMI) 35.9 Intake & Output: Intake and Output for Last 24 Hours 08/01/24 08/02/24 08/03/24 23:59 23:59 23:59 Intake Total 1236.00 / 1236.00 981.67 / 981.67 550 / 550 Output Total 1000 / 1000 1101 / 1101 350 / 350 Balance 236.00 / 236.00 -119.33 / -119.33 200 / 200 Medical Nutrition Assessment Dietitian: Malnutrition Criteria Met Start: 07/31/24 14:51 Freq: Status: Active Protocol: Document 08/03/24 15:59 RMA (Rec: 08/03/24 16:02 RMA [id number]) Nutrition Malnutrition Evidence of Malnutrition Exists Yes Malnutrition (severe): Acute Illness/Injury,Chronic Evidenced By Suboptimal Energy Intake ( Severe),Weight Loss (Severe) Intake Problem Inadequate Oral Intake Etiology related to altered GI function Signs/Symptoms as evidenced by NPO Status Active Problem Clinical Problem Acute Disease or Injury Related Malnutrition Etiology severe protein-calorie malnutrition in the context of acute on chronic disease related to inadequate oral/ energy intake Signs/Symptoms as evidenced by 14.1% unintended wt loss and oral intake meeting <75% of est nutritional needs x 2 months; currently NPO Status Active Problem Recommendation Dietitian Recommendations/Changes Recommend resume PO with liberalized regular/no added salt diet as tolerated. Add 4 oz chocolate carnation instant breakfast w/ meals as diet resumes. Adjust ONS as diet advanced to optimize PO and replete leonila/ pro. Lab / Micro Data 08/02/24 10:40 08/01/24 06:55 Labs: Laboratory Results - last 24 hr 08/02/24 07:17: Sodium Cancelled, Potassium Cancelled, Chloride Cancelled, Carbon Dioxide Cancelled, Anion Gap Cancelled, BUN Cancelled, Creatinine Cancelled, Estim Creat Clear Calc Cancelled, Est GFR (MDRD) Af Amer Cancelled, Est GFR (MDRD) Non-Af Cancelled, BUN/Creatinine Ratio Cancelled, Glucose Cancelled, Calcium Cancelled, Total Bilirubin Cancelled, AST Cancelled, ALT Cancelled, Alkaline Phosphatase Cancelled, Total Protein Cancelled, Albumin Cancelled, Globulin Cancelled, Albumin/Globulin Ratio Cancelled 08/02/24 23:59: POC Glucose 173 H 08/03/24 05:38: POC Glucose 171 H 08/03/24 11:47: POC Glucose 189 H 08/03/24 17:50: POC Glucose 179 H Micro: Microbiology 07/31/24 15:20 Blood Culture (Wb) - Anticubital Left Blood Culture - Preliminary No growth in 48 hours. 08/02/24 10:40 Nasal Secretion MRSA (PCR) - Final 07/31/24 14:15 Urine Catheter - Hutson Urine Culture - Final Presumptive C albicans 07/31/24 14:15 Urine Catheter - Hutson Legionella Antigen - Final 07/31/24 14:15 Urine Catheter - Hutson Streptococcus pneumoniae Antigen (M - Final 07/31/24 14:15 Mucosa - Nose Coronavirus COVID-19 PCR - Final SARS-CoV-2 (COVID 19 PCR) 07/31/24 14:15 Mucosa - Nose Respiratory Panel (PCR) - Final 07/31/24 14:15 Nasal Secretion MRSA (PCR) - Final ABG Data ABG results: ABG 08/03/24 05:43 Specimen Type ART Sample Site R Radial pH 7.44 Bicarbonate Actual 28.2 H Total CO2 29 Base Excess 4 H O2 Saturation 93 L O2 % 68.0 ABG pCO2 41.1 ABG pO2 63 L Josue Test Positive O2 Delivery Device airvo Vent Mode Not entered Clinical Comments 60L. 68% Physical Exam Narrative General: Awake and alert HEENT: Atraumatic, normocephalic Eyes: Anicteric, normal conjunctiva, extraocular movements grossly intact Neck: Supple Respiratory: Slight increased respiratory effort, poor airflow throughout but did not appreciate any wheezes at time of exam Cardiovascular: Regular rate GI: Soft, nondistended Extremities: No significant pitting edema Musculoskeletal: Moving all extremities Neuro: No overt focal neurological deficits Skin: No rashes appreciated Psych: Cooperative Assessment & Plan Assessment/Plan (1) Encephalopathy: PLAN: Plan This 68-year-old female with 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 CERVANTES cirrhosis with a meld of 24 and a child Fuller class C. That carries a very high 3-month mortality at 19.6%. Due to her age and other comorbidities she would not be a good candidate for TIPS procedure as she already suffers from encephalopathy. She is currently on Xifaxan and lactulose. She has not had many bowel movements and is currently n.p.o. for a swallow study tomorrow. If she does pass the swallow study then she will need more aggressive therapy for her altered mental status. She cannot get a CT angio at this time due to her kidney disease to see if there are any other shunts that would be leading to her auto mental status. I suspect that she is suffering from severe sarcopenia as a result of her acute on chronic liver disease resulting in progressive dysphagia. Sarcopenia, rather than the hepatic reserve function, is associated with dysphagia among elderly patients with cirrhosis.? Depending on how she does with the swallow test she may need a repeat upper endoscopy due to her altered mental status and possible underlying erosive esophagitis and likely motility disorder. She also may benefit temporarily from a Dobbhoff tube to institute better nutrition and administration of liquids to help her kidney function and protein calorie malnutrition associated with cirrhosis. 2. Recent hepatorenal syndrome with CKD. Her kidney function is improved. She is followed by nephrology. She is already off of diuretics. Blood pressure is labile. I would recommend imaging of the liver spleen and kidneys. I am okay with her being positive regarding her fluid balance if that is going to help her kidney function. 3. She needs an alpha protein along with blood work to look for other signs of chronic liver disease as she may need to be on ursodiol and other medicine that may benefit her for her decompensated liver disease. 4. COPD with chronic hypoxic respiratory failure on 4 L of home oxygen with COVID-19 pneumonia: Being managed by hospitalist. 08/03/2024-cirrhosis in the setting of a COVID infection. Current MELD is low at 12 and she is a child Fuller class A at this time. She was a child Fuller class B) admission due to encephalopathy. Her appetite is very poor. She is maintaining her weight. She does not seem to be retaining much fluid. Current being seen by nephrology for recent diagnosis of hepatorenal syndrome and acute on chronic kidney injury. She is supposed to have a swallow study. She may need a repeat upper endoscopy due to her decreasing hemoglobin. Charges/Coding Visit Charges Inpatient E&M: 46939 Subs Hosp L3
[2024-08-03] MEDS: Atorvastatin Calcium 20 MG Tablet PO (21:54)
[2024-08-03] MEDS: Heparin Injection (Vial) 5,000 UNIT/ML VIAL 5000 UNIT SC (22:03)
[2024-08-04] VITALS (19 sets, daily range): BP systolic 117–140; BP diastolic 47–61; PULSE 46–59; RESP 12–24; TEMP 34.7–36.5; O2SAT 91–96; BMI 35.9
[2024-08-04 00:11] LABS: Absolute Lymphocyte Count 0.42 X10^3/uL (0.83-4.51); Absolute Neutrophil Count 12.6 X10^3/uL (2.0-7.7); Basophil# 0.01 X10^3/uL; Basophil% 0.1 % (0-1); Hematocrit 28.3 % (37-47); Hemoglobin 8.2 g/dL (12.0-15.0); Lymphocyte # 0.42 X10^3/ul (0.83-4.51); Lymphocyte % 2.9 % (19-41); Mean Corpuscular Hgb 30.6 pg (27.0-32.0); Mean Corpuscular Volume 105.6 fL (81-99); Mean Platelet Vol. 10.7 fl (6.2-12.0); Monocyte# 1.07 X10^3/uL; Monocyte% 7.5 % (0-10); NRBC Flagged by Analyzer 0.3 % (0-5); Neutrophil # 12.56 X10^3/uL (2.7-7.7); Neutrophil % 87.4 % (47-70); POSITIVE DIFFERENTIAL YES; POSITIVE MORPHOLOGY YES; Platelet Count 157 K/mm3 (150-450); RBC Distribution Width CV 29.3 % (11.6-14.6); Red Blood Count 2.68 M/mm3 (4.2-5.4); White Blood Count 14.4 K/mm3 (4.4-11.0)
[2024-08-04 00:16] LABS: Differential Indicated SCAN CRITERIA MET; RBC Distribution Width SD 112.5 fl (35.1-43.9)
[2024-08-04 00:20] LABS: AST(SGOT) 68 U/L (15-37); Alanine Aminotransfer ALT/SGPT 42 U/L (13-56); Albumin, Serum 4.5 g/dL (3.2-5.0); Alkaline Phosphatase 89 U/L (45-117); Anion Gap 10 (5-15); BUN 85 mg/dL (7-18); BUN/Creat Ratio 48.6 RATIO (10-20); Bilirubin, Direct 1.57 mg/dL (0.00-0.30); Calcium,Total 9.8 mg/dL (8.5-10.1); Chloride 119 mmol/L (98-107); Creatinine, Serum 1.75 mg/dL (0.55-1.02); EST Glomerular Filtration Rate 30 mL/min (>60); Est Glom Filt Rate - Afr Amer 37 mL/min (>60); Estimated Creatinine Clearance 26.75 ml/min; Globulin 2.1 g/dL (2.2-4.2); Glucose 196 mg/dL (74-106); Potassium 3.3 mmol/L (3.5-5.1); Protein, Total 6.6 g/dL (6.4-8.2); Sodium Level 157 mmol/L (136-145)
[2024-08-04 01:11] LABS: Differential Comment SCANNED
[2024-08-04] MEDS: Lactulose 20 GM/30 ML UDC 10 GM PO (06:42)
[2024-08-04] MEDS: Piperacil/Tazobactam 3.375 GM in 0.9% Normal Saline (50mL MB+) 50 ML IV ×3 (06:44→20:08)
[2024-08-04] MEDS: Budesonide Respules 0.5 MG/2 ML AMPUL.NEB. INHALATION ×2 (07:01→21:08)
[2024-08-04] MEDS: Ipratropium/Albuterol Sulfate 3 ML AMPUL.NEB INHALATION ×4 (07:01→21:08)
[2024-08-04 07:08] LABS: Bedside Glucose 169 mg/dL (74-106)
[2024-08-04] MEDS: Aspirin E.C. 81 MG Tablet PO (09:23)
[2024-08-04] MEDS: rifAXIMin 550 MG Tablet PO ×2 (09:23→20:15)
[2024-08-04] MEDS: Citalopram 20 MG Tablet PO (09:23)
[2024-08-04] MEDS: Midodrine HCl 5 MG Tablet 10 MG PO ×3 (09:23→17:09)
[2024-08-04] MEDS: Pantoprazole Sodium 40 MG Tablet PO (09:23)
[2024-08-04] MEDS: dexAMETHasone 10 MG/ML Vial 6 MG IV (09:24)
[2024-08-04] MEDS: Heparin Injection (Vial) 5,000 UNIT/ML VIAL 5000 UNIT SC (09:24)
[2024-08-04] MEDS: Menthol/Lanolin/Calamine/Znox 113 GM Tube 1 APPLIC TOPICAL ×2 (09:25→20:14)
[2024-08-04] MEDS: Clotrimazole 1 APPLIC Tube TOPICAL ×2 (09:25→20:17)
--- NOTE | 2024-08-04 12:21 | PCM.PN.REN ---
Subjective Subjective Remains on Airvo Objective Data Objective Data Vital Signs: Vital Signs Temp Pulse Resp BP Pulse Ox O2 Del Method O2 Flow Rate 94.5 F L 46 L 22 H 129/52 H 94 Airvo 60 08/04/24 12:00 08/04/24 12:00 08/04/24 12:00 08/04/24 12:00 08/04/24 12:00 08/04/24 12:00 08/04/24 12:00 FiO2 60 08/04/24 12:00 Oxygen Flow Rate (L/min) 60 Oxygen Delivery Method Airvo Weight: 75.3 kg Body Mass Index (BMI) 35.9 Intake & Output: Intake and Output for Last 24 Hours 08/02/24 08/03/24 08/04/24 23:59 23:59 23:59 Intake Total 981.67 / 981.67 600 / 600 100 / 100 Output Total 1101 / 1101 350 / 350 200 / 200 Balance -119.33 / -119.33 250 / 250 -100 / -100 Medical Nutrition Assessment Dietitian: Malnutrition Criteria Met Start: 07/31/24 14:51 Freq: Status: Active Protocol: Document 08/03/24 15:59 RMA (Rec: 08/03/24 16:02 RMA [id number]) Nutrition Malnutrition Evidence of Malnutrition Exists Yes Malnutrition (severe): Acute Illness/Injury,Chronic Evidenced By Suboptimal Energy Intake ( Severe),Weight Loss (Severe) Intake Problem Inadequate Oral Intake Etiology related to altered GI function Signs/Symptoms as evidenced by NPO Status Active Problem Clinical Problem Acute Disease or Injury Related Malnutrition Etiology severe protein-calorie malnutrition in the context of acute on chronic disease related to inadequate oral/ energy intake Signs/Symptoms as evidenced by 14.1% unintended wt loss and oral intake meeting <75% of est nutritional needs x 2 months; currently NPO Status Active Problem Recommendation Dietitian Recommendations/Changes Recommend resume PO with liberalized regular/no added salt diet as tolerated. Add 4 oz chocolate carnation instant breakfast w/ meals as diet resumes. Adjust ONS as diet advanced to optimize PO and replete leonila/ pro. Lab / Micro Data 08/03/24 23:30 08/03/24 23:30 Labs: Laboratory Results - last 24 hr 08/03/24 11:47: POC Glucose 189 H 08/03/24 17:50: POC Glucose 179 H 08/03/24 23:30: WBC 14.4 H, RBC 2.68 L, Hgb 8.2 L, Hct 28.3 L, MCV 105.6 H, MCH 30.6, MCHC 29.0 L, RDW Std Deviation 112.5 H, RDW Coeff of Melody 29.3 H, Plt Count 157, MPV 10.7, Immature Gran % (Auto) 2.100 H, Neut % (Auto) 87.4 H, Lymph % (Auto) 2.9 L, [place] % (Auto) 7.5, Eos % (Auto) 0.0, Baso % (Auto) 0.1, Absolute Neuts (auto) 12.6 H, Absolute Lymphs (auto) 0.42 L, Nucleated RBC % 0.3, Differential Comment SCANNED, Sodium 157 H, Potassium 3.3 L, Chloride 119 H, Carbon Dioxide 27.0, Anion Gap 10, BUN 85 H, Creatinine 1.75 H, Estim Creat Clear Calc 26.75, Est GFR (MDRD) Af Amer 37 L, Est GFR (MDRD) Non-Af 30 L, BUN/Creatinine Ratio 48.6 H, Glucose 196 H, Calcium 9.8, Total Bilirubin 4.10 H, Direct Bilirubin 1.57 H, AST 68 H, ALT 42, Alkaline Phosphatase 89, Total Protein 6.6, Albumin 4.5, Globulin 2.1 L 08/04/24 06:41: POC Glucose 169 H Micro: Microbiology 08/03/24 08:15 Sputum, Expectorated/Coughed Gram Stain - Final 08/03/24 08:15 Sputum, Expectorated/Coughed Respiratory Culture - Preliminary Presumptive C albicans 07/31/24 15:20 Blood Culture (Wb) - Anticubital Left Blood Culture - Preliminary No growth in 48 hours. 08/02/24 10:40 Nasal Secretion MRSA (PCR) - Final 07/31/24 14:15 Urine Catheter - Hutson Urine Culture - Final Presumptive C albicans 07/31/24 14:15 Urine Catheter - Hutson Legionella Antigen - Final 07/31/24 14:15 Urine Catheter - Hutson Streptococcus pneumoniae Antigen (M - Final 07/31/24 14:15 Mucosa - Nose Coronavirus COVID-19 PCR - Final SARS-CoV-2 (COVID 19 PCR) 07/31/24 14:15 Mucosa - Nose Respiratory Panel (PCR) - Final 07/31/24 14:15 Nasal Secretion MRSA (PCR) - Final Radiography Diagnostic Testing: Radiology Impression Abdomen Ultrasound 08/02/24 05:55 IMPRESSION: Normal left upper quadrant abdominal ultrasound examination. Electronically Signed: Dionicio Osorio MD at 9:18 EDT , Physical Exam Const no apparent distress and average body habitus General Appearance: well developed Orientation / Consciousness: oriented to person and lethargic Nutritional Appearance: obese HEENT normocephalic Neck no lymphadenopathy Resp no use of accessory muscles and clear to auscultation bilaterally Auscultation: diminished lung sounds Cardio regular rate GI non-tender and non-distended Auscultation: normoactive bowel sounds Skin no rashes or lesions noted General Skin Exam: ecchymosis Neuro Sensorium / Orientation: lethargic and somnolent Psych cooperative Memory / Cognition: cognition impaired Assessment & Plan Assessment/Plan (1) Hepatorenal syndrome: PLAN: DENILSON vs CKD Possible creatinine 1.4-1.6 is the baseline. Creatinine as of yesterday is 1.8. Pending labs today. Discussed with hospitalist, PICC line today. Will follow-up on the labs. Blood pressure is acceptable. Hyper natremia. Sodium 157. Not cleared for swallow evaluation yet. Speech therapy to see. We will start D5 water, typically this does not agree with the volume situation. I am okay with Lasix if respiratory status worsens. Chest x-ray from 08/02 reviewed. Looks about the same as before. Some congestion. COVID-pneumonia.
--- NOTE | 2024-08-04 12:50 | RAD_ITS ---
STUDY: X-RAY CHEST REASON FOR EXAM: Female, 69 years old. PICC Line Placement TECHNIQUE: Single AP portable view of the chest. COMPARISON: Comparison is made with prior study dated August 02, 2024. FINDINGS: A right-sided PICC line catheter seen with the tip in the midportion of the superior vena cava. EKG electrodes are seen. Since prior study, there has been progressive airspace disease in the left lung as well as in the right lung base. There is no demonstrated pleural abnormality. Sternal cerclage wires and vascular clips are present from a prior sternotomy and coronary artery bypass graft procedure (CABG). Mild cardiomegaly. Normal mediastinum and noman. Normal visualized pulmonary arteries. Normal visualized aortic arch and descending thoracic aorta. Normal visualized thoracic spine. Normal visualized ribs, clavicles, and shoulders. There is no demonstrated abnormality of the visualized soft tissue structures of the upper abdomen. RAD/Chest 1 View (Portable) IMPRESSION: The tip of the right PICC line catheter is in the midportion of superior vena cava. Progressive bilateral pulmonary infiltrates worse in the left hemithorax. Electronically Signed: Justo Rainey MD at 13:23 EDT ,
[2024-08-04 13:42] LABS: Bedside Glucose 195 mg/dL (74-106)
--- NOTE | 2024-08-04 13:54 | PCM.PN.ID ---
Physical Exam Narrative Feeling a little better today, no fever, no sputum, no abd pain Const alert and no apparent distress General Appearance: cooperative Resp Auscultation: diminished lung sounds Cardio Rate: bradycardia GI soft to palpation, non-tender and non-distended Skin no rashes or lesions noted ID ID: Route of nutrition/ use of supplements: [] Nutritional Intake: [] IV Site: [] Hutson Catheter: [] Assessment & Plan Assessment/Plan (1) Acute on chronic hypoxic respiratory failure: (2) Encephalopathy: (3) COVID-19: PLAN: On dex. Day 3 of remdesivir. ALT/AST normal. Covid (+) 07/31 here. On empiric zosyn for possible bacterial component. Will follow
[2024-08-04] MEDS: Dextrose 5%-Water (1000mL Bag) 1,000 ML 75 ML IV (14:29)
[2024-08-04] MEDS: Remdesivir 100 MG in 0.9% Normal Saline (250mL Bag) 230 ML 125 MG IV (14:37)
[2024-08-04 14:59] LABS: Absolute Lymphocyte Count 0.35 X10^3/uL (0.83-4.51); Absolute Neutrophil Count 12.2 X10^3/uL (2.0-7.7); Basophil# 0.02 X10^3/uL; Basophil% 0.1 % (0-1); Hematocrit 27.2 % (37-47); Hemoglobin 7.9 g/dL (12.0-15.0); Lymphocyte # 0.35 X10^3/ul (0.83-4.51); Lymphocyte % 2.5 % (19-41); Mean Corpuscular Hgb 30.2 pg (27.0-32.0); Mean Corpuscular Volume 103.8 fL (81-99); Mean Platelet Vol. 10.4 fl (6.2-12.0); Monocyte# 1.09 X10^3/uL; Monocyte% 7.9 % (0-10); NRBC Flagged by Analyzer 0.3 % (0-5); Neutrophil % 88.5 % (47-70); POSITIVE DIFFERENTIAL YES; POSITIVE MORPHOLOGY YES; Platelet Count 138 K/mm3 (150-450); RBC Distribution Width CV 28.8 % (11.6-14.6); Red Blood Count 2.62 M/mm3 (4.2-5.4); White Blood Count 13.8 K/mm3 (4.4-11.0)
--- NOTE | 2024-08-04 15:03 | HP.SPFEES ---
FEES Patient Information Date of Evaluation: 08/04/24 Referring Physician: Katt Torres Staff Providing this Care/Treatment:: JUDITH Direct Billable Minutes: 60 History: Past Medical History:: Pt was directly admitted to [facility] ED on 07/31/2024 from [facility] for further management of altered mental status/encephalopathy. She was admitted there on 07/27/2024 night for confusion altered mental status/syncopal episode with abnormal lab values. For last several days he also had nausea and several vomiting episodes. Prior to that, she was admitted for about 3 weeks at the same hospital for hypervolemia, jaundice, confusion, and cirrhosis. She was admitted for management of encephalopathy likely hepatic/metabolic encephalopathy per physician progress notes. She was also COVID-19 positive and dehydrated amongst several other comorbidities. Pt was referred for ST consult due to concerns for aspiration. BSE 08/01/2024 recommended NPO w/ thorough oral care, meds crushed in applesauce and plans for MBSS in upcoming sessions; however, respiratory status worsened and the patient required Airvo and was not cleared for oral intake trials w/ [employer]. 08/03/2024, pt was cleared to work w/ speech therapy who recommended FEES today for further assessment of swallow function and aspiration risk. PMH: chronic severe diastolic heart failure, chronic respiratory failure on 4 L home oxygen, CAD status post CABG 2 years ago, Anemia of chronic disease, Hx of GI bleed, PAF, Hx of GI bleed, COPD, Former tobacco use, Hypothyroidism, Anxiety and depression, Hepatic cirrhosis, HLD, HTN, Chronic anemia, CKD (See EMR for full PMH). Penetration-Aspiration Scale Penetration-Aspiration Scale
[2024-08-04 15:04] LABS: Differential Indicated SCAN CRITERIA MET; RBC Distribution Width SD 108.7 fl (35.1-43.9)
[2024-08-04 15:06] LABS: International Normalized Ratio 3.2; Prothrombin Time (Protime)PT. 32.1 SECONDS (11.7-14.9)
[2024-08-04 15:48] LABS: BNP,B-Type NATRIURETIC PEPTIDE 426.9 pg/mL (0-100)
[2024-08-04 15:52] LABS: Anisocytosis 1+; Differential Comment SCANNED
[2024-08-04 15:53] LABS: Hypochromasia 1+; Polychromasia 1+
[2024-08-04 15:58] LABS: ALB/GLOB Ratio 2.3 RATIO (0.9-2.4); AST(SGOT) 76 U/L (15-37); Alanine Aminotransfer ALT/SGPT 45 U/L (13-56); Albumin, Serum 4.1 g/dL (3.2-5.0); Alkaline Phosphatase 89 U/L (45-117); Anion Gap 9 (5-15); BUN 97 mg/dL (7-18); Calcium,Total 9.9 mg/dL (8.5-10.1); Chloride 123 mmol/L (98-107); Creatinine, Serum 1.94 mg/dL (0.55-1.02); EST Glomerular Filtration Rate 27 mL/min (>60); Est Glom Filt Rate - Afr Amer 33 mL/min (>60); Estimated Creatinine Clearance 24.11 ml/min; Globulin 1.8 g/dL (2.2-4.2); Glucose 204 mg/dL (74-106); Potassium 2.9 mmol/L (3.5-5.1); Protein, Total 5.9 g/dL (6.4-8.2); Sodium Level 159 mmol/L (136-145)
--- NOTE | 2024-08-04 16:07 | HP.SPFEES ---
FEES Patient Information Date of Evaluation: 08/04/24 Time of Evaluation: 13:30 Diagnosis: COPD J44.9 Referring Physician: Katt Torres Staff Providing this Care/Treatment:: WILTON Direct Billable Minutes: 135 History: Past Medical History:: Pt was directly admitted to [facility] ED on 07/31/2024 from [facility] for further management of altered mental status/encephalopathy. She was admitted there on 07/27/2024 night for confusion altered mental status/syncopal episode with abnormal lab values. For last several days he also had nausea and several vomiting episodes. Prior to that, she was admitted for about 3 weeks at the same hospital for hypervolemia, jaundice, confusion, and cirrhosis. She was admitted for management of encephalopathy likely hepatic/metabolic encephalopathy per physician progress notes. She was also COVID-19 positive and dehydrated amongst several other comorbidities. Pt was referred for ST consult due to concerns for aspiration. BSE 08/01/2024 recommended NPO w/ thorough oral care, meds crushed in applesauce and plans for MBSS in upcoming sessions; however, respiratory status worsened and the patient required Airvo and was not cleared for oral intake trials w/ REGISTERED MIDWIFE. 08/03/2024, pt was cleared to work w/ speech therapy who recommended FEES today for further assessment of swallow function and aspiration risk. PMH: chronic severe diastolic heart failure, chronic respiratory failure on 4 L home oxygen, CAD status post CABG 2 years ago, Anemia of chronic disease, Hx of GI bleed, PAF, Hx of GI bleed, COPD, Former tobacco use, Hypothyroidism, Anxiety and depression, Hepatic cirrhosis, HLD, HTN, Chronic anemia, CKD (See EMR for full PMH). Current Diet: Comment:: NPO Respiratory Status Observation:: Airvo 60L/min 60% FIO2 Dentition/Oral Hygiene: Observations:: Tongue has whitish coating that did not clear w/ oral care. Oral care provided via toothette swabs, which cleared some dried secretions from the patient's oral cavity. Vocal Quality: Comments:: Very hoarse, intermittently aphonic Cognition: Observations:: Impaired and Impacted exam Position During FEES: Position During FEES:: Upright Location: In Bed Fiberoptic Endoscope: Size: 3.4 mm Nare Used:: Right Comments: Scoped was passed 3X successfully through R nare. After first pass, REGISTERED MIDWIFE withdrew scope to attempt use of Yankauer to clear oropharyngeal secretions/dried blood; however, very little cleared. After second pass, scope became occluded w/ a dried secretion. Third pass is the pass during which trials were provided. Anatomical Findings: Anatomical Findings:: Bleeding observed in the nasopharynx w/ large strip of dried blood running from the nasopharynx. Nasopharynx also had whitish hue to the tissue. Upon entry through the velum, strip of dried blood continued to run down the posterior pharyngeal wall to the hypopharynx. Bright red blood lightly coated the patient's pyriform sinuses, aryepiglottic folds, ventricular folds, true vocal folds, arytenoids, and inter-arytenoid tissue. Entire pharynx and larynx appeared whitish in color w/ rough, bumpy texture suspicious of thrush. REGISTERED MIDWIFE reviewed images w/ Dr. Torres, who confirmed thrush and attributed bleeding to the amount of time the patient has spent on high flow oxygen. Vocal fold adduction incomplete, especially in the medial and posterior portions of the vocal folds. Arytenoids did not fully approximate during vocal fold adduction and inter-arytenoid tissue appeared gutierrez red and edematous. Due to confusion, pt unable to complete vocal glides to assess pharyngeal contraction. Secretions: Description:: Thin and White Comment:: Strung from epiglottis to posterior pharyngeal wall 1X during study Penetration-Aspiration Scale Penetration-Aspiration Scale Thin Liquids by Teaspoon Food/Drink Provided:: Green-colored water Swallow Onset Location:: Pyriform Sinuses PAS Score: PAS Score *1 Visual Analysis of Swallowing Efficiency and Safety (VASES) after the swallow: Oropharynx and Hypopharynx VASES Comments:: Pharyngeal residues: R pyriform sinus 10%, vallecula 10% Thin Liquids by Single Straw Food/Drink Provided:: Green-colored water Swallow Onset Location:: Pyriform Sinuses PAS Score: PAS Score *5 Visual Analysis of Swallowing Efficiency and Safety (VASES) after the swallow: Oropharynx, Hypopharynx and Vocal Folds Comments:: Pharyngeal residues: vallecula 15%, <5% on true vocal folds, aryepiglottic folds 10%, R pyriform sinus 10%, L pyriform sinus 10% Strategies Trialed:: Cued double swallow Additional Comments:: Oral holding. Pt told REGISTERED MIDWIFE she had swallowed when she had not. Despite moderate verbal cues to swallow, she would not swallow prior to being given an additional trial (yogurt). Mildly Thick Liquids by Teaspoon Swallow Onset Location:: Vallecula PAS Score: PAS Score *5 Visual Analysis of Swallowing Efficiency and Safety (VASES) after the swallow: Oropharynx, Hypopharynx and Vocal Folds Comments:: Pharyngeal residues: vallecula 15%, <5% on true vocal folds, R aryepiglottic fold 10%, L aryepiglottic fold 10%, R and L pyriform sinuses <10% Puree Textures Food/Drink Provided:: Green-colored yogurt Swallow Onset Location:: Vallecula PAS Score: PAS Score *5 Visual Analysis of Swallowing Efficiency and Safety (VASES) after the swallow: Oropharynx, Hypopharynx and Laryngeal Vestibule Comments:: Pharyngeal residues (after two swallows): <5% on true vocal folds, 20% vallecula, 10% R and L aryepiglottic folds, 15% R and L pyriforms Diagnosis/Impressions Impressions: The oral phase is primarily marked by... -Premature posterior loss of thin liquids to the pyriform sinuses prior to swallow onset. -Decreased sensation of bolus in oral cavity as the patient was unaware she was oral holding thin water via straw and would not swallow despite moderate verbal cues. The pharyngeal phase is primarily marked by... -Decreased pharyngeal contraction w/ residues most notable in the pyriforms, vallecula, and arytepiglottic folds. Yogurt residues appeared to almost spill to the laryngeal vestibule prior swallowing the next trial. Unable to trial many compensatory strategies due to difficulty w/ auditory comprehension; however, she was able to execute double swallows several times during study to help clear pharyngeal residues (thin by tsp, yogurt, thin by straw). -Decreased airway closure w/ trace laryngeal penetration to the vocal folds of thin by straw, nectar/mildly thick liquids by tsp, yogurt. Swallowing Impairment: Difficulty Following Directions, Premature Posterior Loss, Decreased Pharyngeal Contraction and Decreased Airway Closure Recommendations Comments: NPO - ice chips and thin water via tsp after oral care, use Yankauer for oral care as needed Recommend Repeat Instrumental Swallow Assessment: Yes Comments: Consider MBSS/FEES in upcoming sessions if good tolerance of ice chips, especially if improved ability to follow simple commands Need for Skilled Speech Therapy Services: Yes Comments: Continue dysphagia therapy during acute stay for the following... -If patient is able to follow commands, consider implementation of oropharyngeal exercises (lingual resistance, effortful swallow, Shikha). -Ongoing assessment of ice chip and thin water trials. -Repeat instrumental assessment to consider diet advancement in upcoming sessions. Education Completed: 1. Described result of evaluation. and 7. Pt requires further education on strategies & risks. Comments: FEES recommendations reviewed w/ Dr. Torres RN, Nelson, and Fallon YOUNG.
[2024-08-04] MEDS: Potassium Chloride 10mEq/100mL 10 MEQ/100 ML IV.SOLN. 100 MEQ IV BOLUS ×4 (17:05→22:45)
[2024-08-04] MEDS: Insulin Lispro 100 UNIT/ML INSULN.PEN SC (18:17)
[2024-08-04 18:39] LABS: Bedside Glucose 218 mg/dL (74-106)
--- NOTE | 2024-08-04 18:50 | PN.GI_ITS ---
Subjective Subjective Patient states that she wants to try to eat something. She underwent evaluation by speech therapy. She had bed oropharyngeal dysphagia and recommendations are n.p.o. with ice chips and water. Objective Data Objective Data Vital Signs: Vital Signs Temp Pulse Resp BP Pulse Ox O2 Del Method O2 Flow Rate 95.9 F L 59 L 16 124/47 H 92 Airvo 60 08/04/24 15:00 08/04/24 15:50 08/04/24 15:50 08/04/24 15:00 08/04/24 15:50 08/04/24 15:45 08/04/24 15:45 FiO2 60 08/04/24 15:50 Oxygen Flow Rate (L/min) 60 Oxygen Delivery Method Airvo Weight: 166 lb 0.129 oz Body Mass Index (BMI) 35.9 Intake & Output: Intake and Output for Last 24 Hours 08/02/24 08/03/24 08/04/24 23:59 23:59 23:59 Intake Total 981.67 / 981.67 600 / 600 350 / 350 Output Total 1101 / 1101 350 / 350 400 / 400 Balance -119.33 / -119.33 250 / 250 -50 / -50 Medical Nutrition Assessment Dietitian: Malnutrition Criteria Met Start: 07/31/24 14:51 Freq: Status: Active Protocol: Document 08/03/24 15:59 RMA (Rec: 08/03/24 16:02 RMA [id number]) Nutrition Malnutrition Evidence of Malnutrition Exists Yes Malnutrition (severe): Acute Illness/Injury,Chronic Evidenced By Suboptimal Energy Intake ( Severe),Weight Loss (Severe) Intake Problem Inadequate Oral Intake Etiology related to altered GI function Signs/Symptoms as evidenced by NPO Status Active Problem Clinical Problem Acute Disease or Injury Related Malnutrition Etiology severe protein-calorie malnutrition in the context of acute on chronic disease related to inadequate oral/ energy intake Signs/Symptoms as evidenced by 14.1% unintended wt loss and oral intake meeting <75% of est nutritional needs x 2 months; currently NPO Status Active Problem Recommendation Dietitian Recommendations/Changes Recommend resume PO with liberalized regular/no added salt diet as tolerated. Add 4 oz chocolate carnation instant breakfast w/ meals as diet resumes. Adjust ONS as diet advanced to optimize PO and replete leonila/ pro. Lab / Micro Data 08/04/24 14:30 08/04/24 14:30 Labs: Laboratory Results - last 24 hr 08/03/24 23:30: WBC 14.4 H, RBC 2.68 L, Hgb 8.2 L, Hct 28.3 L, MCV 105.6 H, MCH 30.6, MCHC 29.0 L, RDW Std Deviation 112.5 H, RDW Coeff of Melody 29.3 H, Plt Count 157, MPV 10.7, Immature Gran % (Auto) 2.100 H, Neut % (Auto) 87.4 H, Lymph % (Auto) 2.9 L, [place] % (Auto) 7.5, Eos % (Auto) 0.0, Baso % (Auto) 0.1, Absolute Neuts (auto) 12.6 H, Absolute Lymphs (auto) 0.42 L, Nucleated RBC % 0.3, Differential Comment SCANNED, Sodium 157 H, Potassium 3.3 L, Chloride 119 H, Carbon Dioxide 27.0, Anion Gap 10, BUN 85 H, Creatinine 1.75 H, Estim Creat Clear Calc 26.75, Est GFR (MDRD) Af Amer 37 L, Est GFR (MDRD) Non-Af 30 L, B UN/Creatinine Ratio 48.6 H, Glucose 196 H, Calcium 9.8, Total Bilirubin 4.10 H, Direct Bilirubin 1.57 H, AST 68 H, ALT 42, Alkaline Phosphatase 89, Total Protein 6.6, Albumin 4.5, Globulin 2.1 L 08/04/24 06:41: POC Glucose 169 H 08/04/24 13:06: POC Glucose 195 H 08/04/24 14:30: WBC 13.8 H, RBC 2.62 L, Hgb 7.9 L, Hct 27.2 L, MCV 103.8 H, MCH 30.2, MCHC 29.0 L, RDW Std Deviation 108.7 H, RDW Coeff of Melody 28.8 H, Plt Count 138 L, MPV 10.4, Immature Gran % (Auto) 1.000 H, Neut % (Auto) 88.5 H, Lymph % (Auto) 2.5 L, [place] % (Auto) 7.9, Eos % (Auto) 0.0, Baso % (Auto) 0.1, Absolute Neuts (auto) 12.2 H, Absolute Lymphs (auto) 0.35 L, Nucleated RBC % 0.3, Differential Comment SCANNED, Polychromasia 1+, Hypochromasia 1+, Anisocytosis 1+, PT 32.1 H, INR 3.2, Sodium 159 H, Potassium 2.9 L, Chloride 123 H, Carbon Dioxide 27.0, Anion Gap 9, BUN 97 H, Creatinine 1.94 H, Estim Creat Clear Calc 24.11, Est GFR (MDRD) Af Amer 33 L, Est GFR (MDRD) Non-Af 27 L, BUN/Creatinine Ratio 50.0 H, Glucose 204 H, Calcium 9.9, Total Bilirubin 4.30 H, AST 76 H, ALT 45, Alkaline Phosphatase 89, B-Natriuretic Peptide 426.9 H, Total Protein 5.9 L, Albumin 4.1, Globulin 1.8 L, Albumin/Globulin Ratio 2.3 08/04/24 15:40: Ammonia 29.0 08/04/24 18:14: POC Glucose 218 H Micro: Microbiology 08/03/24 08:15 Sputum, Expectorated/Coughed Gram Stain - Final 08/03/24 08:15 Sputum, Expectorated/Coughed Respiratory Culture - Preliminary Presumptive C albicans 07/31/24 15:20 Blood Culture (Wb) - Anticubital Left Blood Culture - Preliminary No growth in 48 hours. 08/02/24 10:40 Nasal Secretion MRSA (PCR) - Final 07/31/24 14:15 Urine Catheter - Hutson Urine Culture - Final Presumptive C albicans 07/31/24 14:15 Urine Catheter - [facility]son Legionella Antigen - Final 07/31/24 14:15 Urine Catheter - [facility] Streptococcus pneumoniae Antigen (M - Final 07/31/24 14:15 Mucosa - Nose Coronavirus COVID-19 PCR - Final SARS-CoV-2 (COVID 19 PCR) 07/31/24 14:15 Mucosa - Nose Respiratory Panel (PCR) - Final 07/31/24 14:15 Nasal Secretion MRSA (PCR) - Final Radiography Diagnostic Testing: Radiology Impression Abdomen Ultrasound 08/02/24 05:55 IMPRESSION: Normal left upper quadrant abdominal ultrasound examination. Electronically Signed: Dionicio Osorio MD at 9:18 EDT , Chest X-Ray 08/04/24 12:50 IMPRESSION: The tip of the right PICC line catheter is in the midportion of superior vena cava. Progressive bilateral pulmonary infiltrates worse in the left hemithorax. 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 That carries a very high 3-month mortality at 19.6%. Due to her age and other comorbidities she would not be a good candidate for TIPS procedure as she already suffers from encephalopathy. She is currently on Xifaxan and lactulose. She has not had many bowel movements and is currently n.p.o. for a swallow study tomorrow. If she does pass the swallow study then she will need more aggressive therapy for her altered mental status. She cannot get a CT angio at this time due to her kidney disease to see if there are any other shunts that would be leading to her auto mental status. I suspect that she is suffering from severe sarcopenia as a result of her acute on chronic liver disease resulting in progressive dysphagia. Sarcopenia, rather than the hepatic reserve function, is associated with dysphagia among elderly patients with cirrhosis.? Depending on how she does with the swallow test she may need a repeat upper endoscopy due to her altered mental status and possible underlying erosive esophagitis and likely motility disorder. She also may benefit temporarily from a Dobbhoff tube to institute better nutrition and administration of liquids to help her kidney function and protein calorie malnutrition associated with cirrhosis. 2. Recent hepatorenal syndrome with CKD. Her kidney function is improved. She is followed by nephrology. She is already off of diuretics. Blood pressure is labile. I would recommend imaging of the liver spleen and kidneys. I am okay with her being positive regarding her fluid balance if that is going to help her kidney function. 3. She needs an alpha protein along with blood work to look for other signs of chronic liver disease as she may need to be on ursodiol and other medicine that may benefit her for her decompensated liver disease. 4. COPD with chronic hypoxic respiratory failure on 4 L of home oxygen with COVID-19 pneumonia: Being managed by hospitalist. 08/03/2024-cirrhosis in the setting of a COVID infection. Current MELD is low at 12 and she is a child Fuller class A at this time. She was a child Fuller class B) admission due to encephalopathy. Her appetite is very poor. She is maintaining her weight. She does not seem to be retaining much fluid. Current being seen by nephrology for recent diagnosis of hepatorenal syndrome and acute on chronic kidney injury. She is supposed to have a swallow study. She may need a repeat upper endoscopy due to her decreasing hemoglobin. 08/04/2024-patient still recovering from COVID infection. She has not shown any signs of worsening cirrhosis at this time. She is still a grade 2 encephalopathy. Her child Fuller score is about the same at 12-14 and she is still a child Fuller class A. Unfortunately she did not do well during her swallowing study. And progressive dysphagia is a consequence of cirrhosis along with sarcopenia. She may need feeding tube in the future. Charges/Coding Visit Charges Inpatient E&M: 77226 Subs Hosp L3
[2024-08-04] MEDS: Atorvastatin Calcium 20 MG Tablet PO (20:14)
--- NOTE | 2024-08-04 20:24 | PCM.PN.HOSP ---
Reason for Visit Reason for Visit: Diagnoses Encephalopathy, unspecified (07/31/24) Acute and chronic respiratory failure with hypoxia (07/31/24) Hepatorenal syndrome (07/31/24) COVID-19 (07/31/24) Subjective Subjective Patient sitting in bed, minimally responding, did not verbalize any specific complaints Did discuss with patient's daughter regarding prognosis and CODE STATUS, patient has been made DNR/DNI but will continue all other measures at this time Objective Data Objective Data Vital Signs: Vital Signs Temp Pulse Resp BP Pulse Ox O2 Del Method O2 Flow Rate 95.9 F L 53 L 17 131/52 H 92 Airvo 60 08/04/24 18:00 08/04/24 20:15 08/04/24 18:00 08/04/24 18:00 08/04/24 18:00 08/04/24 18:00 08/04/24 18:00 FiO2 60 08/04/24 18:00 Oxygen Flow Rate (L/min) 60 Oxygen Delivery Method Airvo Weight: 75.3 kg Body Mass Index (BMI) 35.9 Intake & Output: Intake and Output for Last 24 Hours 08/02/24 08/03/24 08/04/24 23:59 23:59 23:59 Intake Total 981.67 / 981.67 600 / 600 500 / 500 Output Total 1101 / 1101 350 / 350 500 / 500 Balance -119.33 / -119.33 250 / 250 0 / 0 Medical Nutrition Assessment Dietitian: Malnutrition Criteria Met Start: 07/31/24 14:51 Freq: Status: Active Protocol: Document 08/03/24 15:59 RMA (Rec: 08/03/24 16:02 RMA [id number]) Nutrition Malnutrition Evidence of Malnutrition Exists Yes Malnutrition (severe): Acute Illness/Injury,Chronic Evidenced By Suboptimal Energy Intake ( Severe),Weight Loss (Severe) Intake Problem Inadequate Oral Intake Etiology related to altered GI function Signs/Symptoms as evidenced by NPO Status Active Problem Clinical Problem Acute Disease or Injury Related Malnutrition Etiology severe protein-calorie malnutrition in the context of acute on chronic disease related to inadequate oral/ energy intake Signs/Symptoms as evidenced by 14.1% unintended wt loss and oral intake meeting <75% of est nutritional needs x 2 months; currently NPO Status Active Problem Recommendation Dietitian Recommendations/Changes Recommend resume PO with liberalized regular/no added salt diet as tolerated. Add 4 oz chocolate carnation instant breakfast w/ meals as diet resumes. Adjust ONS as diet advanced to optimize PO and replete leonila/ pro. Lab / Micro Data 08/04/24 14:30 08/04/24 14:30 Labs: Laboratory Results - last 24 hr 08/03/24 23:30: WBC 14.4 H, RBC 2.68 L, Hgb 8.2 L, Hct 28.3 L, MCV 105.6 H, MCH 30.6, MCHC 29.0 L, RDW Std Deviation 112.5 H, RDW Coeff of Melody 29.3 H, Plt Count 157, MPV 10.7, Immature Gran % (Auto) 2.100 H, Neut % (Auto) 87.4 H, Lymph % (Auto) 2.9 L, [place] % (Auto) 7.5, Eos % (Auto) 0.0, Baso % (Auto) 0.1, Absolute Neuts (auto) 12.6 H, Absolute Lymphs (auto) 0.42 L, Nucleated RBC % 0.3, Differential Comment SCANNED, Sodium 157 H, Potassium 3.3 L, Chloride 119 H, Carbon Dioxide 27.0, Anion Gap 10, BUN 85 H, Creatinine 1.75 H, Estim Creat Clear Calc 26.75, Est GFR (MDRD) Af Amer 37 L, Est GFR (MDRD) Non-Af 30 L, BUN/Creatinine Ratio 48.6 H, Glucose 196 H, Calcium 9.8, Total Bilirubin 4.10 H, Direct Bilirubin 1.57 H, AST 68 H, ALT 42, Alkaline Phosphatase 89, Total Protein 6.6, Albumin 4.5, Globulin 2.1 L 08/04/24 06:41: POC Glucose 169 H 08/04/24 13:06: POC Glucose 195 H 08/04/24 14:30: WBC 13.8 H, RBC 2.62 L, Hgb 7.9 L, Hct 27.2 L, MCV 103.8 H, MCH 30.2, MCHC 29.0 L, RDW Std Deviation 108.7 H, RDW Coeff of Melody 28.8 H, Plt Count 138 L, MPV 10.4, Immature Gran % (Auto) 1.000 H, Neut % (Auto) 88.5 H, Lymph % (Auto) 2.5 L, [place] % (Auto) 7.9, Eos % (Auto) 0.0, Baso % (Auto) 0.1, Absolute Neuts (auto) 12.2 H, Absolute Lymphs (auto) 0.35 L, Nucleated RBC % 0.3, Differential Comment SCANNED, Polychromasia 1+, Hypochromasia 1+, Anisocytosis 1+, PT 32.1 H, INR 3.2, Sodium 159 H, Potassium 2.9 L, Chloride 123 H, Carbon Dioxide 27.0, Anion Gap 9, BUN 97 H, Creatinine 1.94 H, Estim Creat Clear Calc 24.11, Est GFR (MDRD) Af Amer 33 L, Est GFR (MDRD) Non-Af 27 L, BUN/Creatinine Ratio 50.0 H, Glucose 204 H, Calcium 9.9, Total Bilirubin 4.30 H, AST 76 H, ALT 45, Alkaline Phosphatase 89, B-Natriuretic Peptide 426.9 H, Total Protein 5.9 L, Albumin 4.1, Globulin 1.8 L, Albumin/Globulin Ratio 2.3 08/04/24 15:40: Ammonia 29.0 08/04/24 18:14: POC Glucose 218 H Micro: Microbiology 08/03/24 08:15 Sputum, Expectorated/Coughed Gram Stain - Final 08/03/24 08:15 Sputum, Expectorated/Coughed Respiratory Culture - Preliminary Presumptive C albicans 07/31/24 15:20 Blood Culture (Wb) - Anticubital Left Blood Culture - Preliminary No growth in 48 hours. 08/02/24 10:40 Nasal Secretion MRSA (PCR) - Final 07/31/24 14:15 Urine Catheter - Hutson Urine Culture - Final Presumptive C albicans 07/31/24 14:15 Urine Catheter - [facility] Legionella Antigen - Final 07/31/24 14:15 Urine Catheter - [facility] Streptococcus pneumoniae Antigen (M - Final 07/31/24 14:15 Mucosa - Nose Coronavirus COVID-19 PCR - Final SARS-CoV-2 (COVID 19 PCR) 07/31/24 14:15 Mucosa - Nose Respiratory Panel (PCR) - Final 07/31/24 14:15 Nasal Secretion MRSA (PCR) - Final Radiography Diagnostic Testing: Radiology Impression Abdomen Ultrasound 08/02/24 05:55 IMPRESSION: Normal left upper quadrant abdominal ultrasound examination. Electronically Signed: Dionicio Osorio MD at 9:18 EDT , Chest X-Ray 08/04/24 12:50 IMPRESSION: The tip of the right PICC line catheter is in the midportion of superior vena cava. Progressive bilateral pulmonary infiltrates worse in the left hemithorax. Electronically Signed: Justo Rainey MD at 13:23 EDT , Physical Exam Narrative General: Tired, minimally talkative HEENT: Atraumatic, normocephalic Eyes: Anicteric, normal conjunctiva, extraocular movements grossly intact Neck: Supple Respiratory: Some crackles at the bases, increased respiratory effort Cardiovascular: Regular rate GI: Soft, nondistended Extremities: Some dependent pitting edema Musculoskeletal: Moving all extremities Neuro: No overt focal neurological deficits Skin: Stephanie in oropharynx Psych: Tired Assessment & Plan Assessment/Plan (1) Acute on chronic hypoxic respiratory failure: PLAN: Plan #Acute on chronic hypoxic respiratory failure on 2 to 4 L home O2/chronic COPD/COVID-19 positive -Suspect patient's acute on chronic respiratory failure is multifactorial -Patient tested positive for COVID-19 07/31 and it appears at outlying facility on 07/27 she was negative but patient unable to tell me exact onset of symptoms -She is on roughly 4 L home O2 but now is on high flow nasal cannula -She is on dexamethasone, do not think she can get remdesivir given the elevated creatinine -Labs have now been scheduled -Her diuretics have been held as it was suspected that she had been significantly overdiuresed previously, does not appear to be overtly overloaded on exam and sodium and renal function remain elevated -Patient on inhaled Pulmicort -Obtain sputum culture if able -Chest x-ray on presentation with some right lower lobe atelectasis or infiltrate -Reviewed chest x-ray film, query if there is some worsening of right lower lobe findings -Resume Zosyn, had elevated white blood cell count on presentation with left shift that improved with antibiotics and has infiltrate, is on steroids however [facility] to patient only being COVID-positive here so this would not account for her elevated white blood cell count, cannot r/o aspect of pnemonia -Pulmonary/critical care consult -08/03: Patient on nebs, IV dexamethasone, remdesivir due to COVID, Zosyn in the event there is bacterial component. Pulmonology following, discussed with pharmaceutical physician this a.m. and infectious disease following. Weaning Airvo as tolerated. Having significant difficulty with vascular access so PICC line ordered, awaiting PICC placement to obtain labs as multiple other times have been unsuccessful. Patient received a dose of Lasix yesterday which did seem to help, on next lab draw if creatinine is stable will give further IV Lasix. Additionally sputum culture obtained and pending -08/04: BUN and creatinine continue to worsen, patient presently 92% and remains on Airvo. Does have some blood in pharynx 1 speech evaluated seems likely to be due to the prolonged high flow. Continuing dexamethasone, remdesivir. # DENILSON versus CKD versus DENILSON on CKDIIIb/hypernatremia -Creatinine 1.55 with a BUN of 63 -Unclear baseline but had been admitted to [facility] last month and was vigorously diuresed to the point that dialysis was anticipated but then she started making urine -Nephrology consulted -Patient has been on gentle D5 due to her kidney function and hypernatremia -He was suspected outlying facility she developed hepatorenal syndrome -Continue midodrine every 8 hours -Received some albumin -08/03: Continuing midodrine, patient's status post albumin and IV fluids. PICC line ordered this a.m. and awaiting placement in the labs as multiple attempts by multiple people were made to obtain labs and this was unsuccessful. Nephrology following, discussed with data warehousing manager -08/04: Continues to worsen, discussed with nephrology, patient started on dextrose given worsening kidney function and high sodium # Oropharyngeal Stephanie -Seen on speech eval with fluoroscopy -Starting Diflucan IV #CERVANTES Cirrhosis -Recently admitted to an [facility] June 2024 with decompensated cirrhosis and was aggressively diuresed -Continue lactulose and Xifaxan -GI consult -abdominal ultrasound pending -08/03: Will check ammonia when we are able to get labs however patient does not seem to have significant change in mental status from yesterday. Patient has lactulose and rifaximin ordered -08/04: GI following # Chronic heart failure preserved ejection fraction by history -Documented heart failure preserved ejection fraction no no echo in our system -No Lasix at this time given kidney function -Daily weights, I's and O's -Fluid restriction, heart healthy diet -08/03: Continue to monitor weight and respiratory status, may need another dose of IV Lasix pending respiratory progress and creatinine -08/04: 92% on Airvo, given renal failure Lasix have been held #Encephalopathy suspect metabolic -Patient has had some intermittent altered mental status -Patient has had some waxing and waning mental status -Ammonia only 36 on presentation so lower suspicion that this was hepatic encephalopathy -Antibiotics resumed, cannot rule out pneumonia at this time especially given infiltrate and productive cough but does have COVID-19 which confounds picture -UA not suggestive of UTI -08/03: No significant change from yesterday -08/04: Worsened today, discussed with patient's daughter, will continue goals of care discussions. Patient may need feeding tube if cognitive status does not improve # Recent GI bleed -Reportedly had recent EGD reportedly showed gastritis and PHG -GI consulted as above -Hemoglobin 8.510/5 and down trended to 7.4 on 08/01, awaiting a.m. hemoglobin -Transfusion threshold of 8 -Continue to hold Eliquis, if continues to drop may need to hold aspirin as well -08/03: Due to full dose anticoagulation being held due to this possible recent GI bleed patient also is not on pharmacologic DVT prophylaxis. Patient has had no overt bleeding since being here, will trial subcu heparin as patient having PE would be potentially catastrophic to her respiratory status -08/04: Hemoglobin stable Chronic medical problems: # Low TSH -With elevated free T4 -Hold home Synthroid 25 mcg -08/03: Holding Synthroid #Type 2 diabetes mellitus -Glucose checks and sliding scale insulin #GERD -Continue PPI #hx afib -Holding Eliquis, metoprolol with holding parameters #Hx CAD s/p CABG -Patient on aspirin, does not appear to be overtly bleeding at this moment but awaiting a.m. hemoglobin -Metoprolol with holding parameters -Continue statin #DVT ppx: SCDs Katt Torres, MD Time spent in the patient's overall evaluation,decision-making process, review of diagnostic data, adjustment of management, discussion with other providers, nursing nursing and ancillary staff involved in patient's care documentation, 53 Minutes Charges/Coding Visit Charges Inpatient E&M: 81767 Subs Hosp L3
[2024-08-04] MEDS: Fluconazole IVPB 200 MG/100 ML BAG 100 MG IV (22:45)
[2024-08-05] VITALS (11 sets, daily range): BP systolic 119–143; BP diastolic 50–64; PULSE 55–61; RESP 12–21; TEMP 35–36.4; O2SAT 88–95; BMI 37.0
[2024-08-05] MEDS: Insulin Lispro 100 UNIT/ML INSULN.PEN SC ×4 (00:41→17:20)
[2024-08-05 01:08] LABS: Bedside Glucose 198 mg/dL (74-106)
[2024-08-05] MEDS: Dextrose 5%-Water (1000mL Bag) 1,000 ML 75 ML IV ×2 (03:14→18:37)
[2024-08-05 04:45] LABS: Absolute Lymphocyte Count 0.33 X10^3/uL (0.83-4.51); Absolute Neutrophil Count 14.6 X10^3/uL (2.0-7.7); Basophil# 0.02 X10^3/uL; Basophil% 0.1 % (0-1); Hematocrit 25.9 % (37-47); Hemoglobin 7.6 g/dL (12.0-15.0); Lymphocyte # 0.33 X10^3/ul (0.83-4.51); Mean Corp Hgb Conc 29.3 g/dL (32-36); Mean Corpuscular Hgb 30.9 pg (27.0-32.0); Mean Corpuscular Volume 105.3 fL (81-99); Mean Platelet Vol. 10.9 fl (6.2-12.0); Monocyte# 1.44 X10^3/uL; Monocyte% 8.7 % (0-10); NRBC Flagged by Analyzer 0.5 % (0-5); Neutrophil # 14.62 X10^3/uL (2.7-7.7); Neutrophil % 88.2 % (47-70); POSITIVE DIFFERENTIAL YES; POSITIVE MORPHOLOGY YES; Platelet Count 143 K/mm3 (150-450); RBC Distribution Width CV 28.5 % (11.6-14.6); Red Blood Count 2.46 M/mm3 (4.2-5.4); White Blood Count 16.6 K/mm3 (4.4-11.0)
[2024-08-05 04:53] LABS: Differential Indicated SCAN CRITERIA MET; RBC Distribution Width SD 109.6 fl (35.1-43.9)
[2024-08-05 05:34] LABS: ALB/GLOB Ratio 2.1 RATIO (0.9-2.4); AST(SGOT) 75 U/L (15-37); Alanine Aminotransfer ALT/SGPT 46 U/L (13-56); Albumin, Serum 3.8 g/dL (3.2-5.0); Alkaline Phosphatase 86 U/L (45-117); Anion Gap 10 (5-15); BUN 103 mg/dL (7-18); Calcium,Total 9.4 mg/dL (8.5-10.1); Chloride 119 mmol/L (98-107); EST Glomerular Filtration Rate 25 mL/min (>60); Est Glom Filt Rate - Afr Amer 30 mL/min (>60); Estimated Creatinine Clearance 22.63 ml/min; Globulin 1.8 g/dL (2.2-4.2); Glucose 199 mg/dL (74-106); Potassium 3.4 mmol/L (3.5-5.1); Protein, Total 5.6 g/dL (6.4-8.2); Sodium Level 154 mmol/L (136-145)
[2024-08-05 05:40] LABS: Anisocytosis 1+; Hypochromasia 1+; Platelet Estimate ADEQUATE (ADEQ); Polychromasia 1+
[2024-08-05] MEDS: Piperacil/Tazobactam 3.375 GM in 0.9% Normal Saline (50mL MB+) 50 ML IV ×3 (05:47→22:28)
[2024-08-05] MEDS: Ipratropium/Albuterol Sulfate 3 ML AMPUL.NEB INHALATION ×4 (07:23→21:42)
[2024-08-05] MEDS: Budesonide Respules 0.5 MG/2 ML AMPUL.NEB. INHALATION ×2 (07:23→21:42)
--- NOTE | 2024-08-05 08:30 | RAD_ITS ---
STUDY: X-RAY CHEST REASON FOR EXAM: Female, 69 years old. Respiratory Failure TECHNIQUE: Single AP portable view of the chest. COMPARISON: Comparison is made with prior study dated August 04, 2024. FINDINGS: Once again, a right-sided PICC line catheter is seen with the tip in the midportion of the superior vena cava. EKG electrodes are seen. Stable patchy airspace disease in the right lower lobe as well as in the left hemithorax. There is been essentially no change. There is no demonstrated pleural abnormality. Sternal cerclage wires and vascular clips are present from a prior sternotomy and coronary artery bypass graft procedure (CABG). Normal mediastinum and noman. Normal visualized pulmonary arteries. There is atherosclerotic calcification of the aortic arch with tortuosity. There are degenerative changes of the visualized thoracic spine. Normal visualized ribs, clavicles, and shoulders. There is no demonstrated abnormality of the visualized soft tissue structures of the upper abdomen. RAD/Chest 1 View (Portable) IMPRESSION: Stable examination. Electronically Signed: Justo Rainey MD at 8:46 EDT ,
--- NOTE | 2024-08-05 08:47 | PCM.PN.INT ---
Assessment & Plan Assessment/Plan (1) Acute on chronic hypoxic respiratory failure: PLAN: Plan RECOMMENDATIONS: 1. Supplemental oxygen to maintain saturations at or above 90%. 2. Obtain follow-up ABG and chest x-ray. 3. Continue empiric antibiotics. 4. Continue remdesivir and Decadron as ordered. 5. Continue bronchodilators. 6. Transfuse if hemoglobin drops below 7 g/dL. Continue PPI therapy. IMPRESSIONS: 1. Acute on chronic hypoxemic respiratory failure Most likely multifactorial in etiology with underlying COPD, acute COVID-19 pneumonia and possible heart failure with preserved ejection fraction contributing. Unfortunately, the patient has underlying multisystem organ dysfunction, which will make it difficult to optimize her from a respiratory perspective. At this time, I agree with continuing scheduled bronchodilators, remdesivir and Decadron as ordered. In addition, I would plan to continue empiric antibiotics to cover for secondary bacterial pneumonia as well. Underlying PE would also be another contributing etiology. However, I agree with holding off on CTA chest given underlying renal dysfunction. If the patient were to worsen from a respiratory perspective, could consider empiric initiation of a weight-based heparin infusion along with lower extremity Doppler study. 2. Decompensated CERVANTES cirrhosis/anemia Continue medical management per gastroenterology recommendations. Continue to monitor H&H and transfuse if hemoglobin drops below 7 g/dL. Continue PPI therapy. Continue lactulose and rifaximin. 3. Acute versus chronic kidney disease, with concern for hepatorenal syndrome Nephrology is currently following to assist with medical management. Recommend conservative use of IV fluids. Continue scheduled midodrine as ordered. 4. History of heart failure with preserved ejection fraction/coronary artery disease status post CABG/questionable GI bleed/diabetes mellitus/history of atrial fibrillation/obesity Complicates care, management, recovery and prognosis. The patient's Eliquis remains on hold. CODE STATUS: DNR CCA without intubation. Overall, the patient appears quite ill and debilitated. She has not made any significant improvement over the last several days. She continues to have significant multisystem organ dysfunction and hypoxemia. Her prognosis overall is guarded. I agree with consideration for hospice care referral, if the patient is agreeable. This note was generated with [employer] dictation software. It may contain incorrect words, spelling, and punctuation that were not noted in checking the note before signing. Subjective Subjective The patient was seen and examined at the bedside this morning. Events from the last 24 hours have been reviewed. The patient is currently afebrile, hemodynamically stable and maintaining appropriate oxygen saturations on heated high flow with an FiO2 requirement of 66%. White count remains elevated at 16,000 with a hemoglobin of 7.6 g/dL and platelet count of 143,000. Chemistry profile was notable for a sodium of 154, potassium of 3.4, chloride of 119, BUN of 103 and creatinine of 2.1. Total bilirubin remains elevated at 4.2. The patient remains on D5W, rifaximin, lactulose, antimicrobials, Decadron and remdesivir. She is currently documented to be overall net +1.4 L for the hospitalization. Chest imaging continues to demonstrate patchy bilateral airspace opacities. CODE STATUS yesterday was updated to DNR CCA without intubation. I did engage in a very javier discussion regarding goals of care and prognosis with the patient's daughter this morning. She is going to introduce the idea of hospice care referral to the patient. Objective Data Objective Data The patient's most recent lab work, culture data and imaging studies have all been personally reviewed. Surface echocardiogram demonstrated normal LV size and function with an ejection fraction of 65%. Pulmonary artery systolic pressure was estimated to be 45 mmHg. COVID PCR was positive on July 31. Vital Signs: Vital Signs Temp Pulse Resp BP Pulse Ox O2 Del Method O2 Flow Rate 95.0 F L 57 L 16 119/55 L 94 Airvo 60 08/05/24 05:00 08/05/24 07:23 08/05/24 07:23 08/05/24 05:00 08/05/24 07:23 08/05/24 07:23 08/05/24 07:23 FiO2 67 08/05/24 07:23 Oxygen Flow Rate (L/min) 60 Oxygen Delivery Method Airvo Weight: 171 lb 1.6 oz Body Mass Index (BMI) 37.0 Intake & Output: Intake and Output for Last 24 Hours 08/03/24 08/04/24 08/05/24 23:59 23:59 23:59 Intake Total 600 / 600 900 / 900 1006.25 / 1006.25 Output Total 350 / 350 500 / 625 175 / 175 Balance 250 / 250 400 / 275 831.25 / 831.25 Medical Nutrition Assessment Dietitian: Malnutrition Criteria Met Start: 07/31/24 14:51 Freq: Status: Active Protocol: Document 08/03/24 15:59 RMA (Rec: 08/03/24 16:02 RMA [id number]) Nutrition Malnutrition Evidence of Malnutrition Exists Yes Malnutrition (severe): Acute Illness/Injury,Chronic Evidenced By Suboptimal Energy Intake ( Severe),Weight Loss (Severe) Intake Problem Inadequate Oral Intake Etiology related to altered GI function Signs/Symptoms as evidenced by NPO Status Active Problem Clinical Problem Acute Disease or Injury Related Malnutrition Etiology severe protein-calorie malnutrition in the context of acute on chronic disease related to inadequate oral/ energy intake Signs/Symptoms as evidenced by 14.1% unintended wt loss and oral intake meeting <75% of est nutritional needs x 2 months; currently NPO Status Active Problem Recommendation Dietitian Recommendations/Changes Recommend resume PO with liberalized regular/no added salt diet as tolerated. Add 4 oz chocolate carnation instant breakfast w/ meals as diet resumes. Adjust ONS as diet advanced to optimize PO and replete leonila/ pro. Lab / Micro Data Attestation: I reviewed the patient's lab results. 08/05/24 04:10 08/05/24 04:10 Labs: Laboratory Results - last 24 hr 08/04/24 13:06: POC Glucose 195 H 08/04/24 14:30: WBC 13.8 H, RBC 2.62 L, Hgb 7.9 L, Hct 27.2 L, MCV 103.8 H, MCH 30.2, MCHC 29.0 L, RDW Std Deviation 108.7 H, RDW Coeff of Melody 28.8 H, Plt Count 138 L, MPV 10.4, Immature Gran % (Auto) 1.000 H, Neut % (Auto) 88.5 H, Lymph % (Auto) 2.5 L, [place] % (Auto) 7.9, Eos % (Auto) 0.0, Baso % (Auto) 0.1, Absolute Neuts (auto) 12.2 H, Absolute Lymphs (auto) 0.35 L, Nucleated RBC % 0.3, Differential Comment SCANNED, Polychromasia 1+, Hypochromasia 1+, Anisocytosis 1+, PT 32.1 H, INR 3.2, Sodium 159 H, Potassium 2.9 L, Chloride 123 H, Carbon Dioxide 27.0, Anion Gap 9, BUN 97 H, Creatinine 1.94 H, Estim Creat Clear Calc 24.11, Est GFR (MDRD) Af Amer 33 L, Est GFR (MDRD) Non-Af 27 L, BUN/Creatinine Ratio 50.0 H, Glucose 204 H, Calcium 9.9, Total Bilirubin 4.30 H, AST 76 H, ALT 45, Alkaline Phosphatase 89, B-Natriuretic Peptide 426.9 H, Total Protein 5.9 L, Albumin 4.1, Globulin 1.8 L, Albumin/Globulin Ratio 2.3 08/04/24 15:40: Ammonia 29.0 08/04/24 18:14: POC Glucose 218 H 08/05/24 00:27: POC Glucose 198 H 08/05/24 04:10: WBC 16.6 H, RBC 2.46 L, Hgb 7.6 L, Hct 25.9 L, MCV 105.3 H, MCH 30.9, MCHC 29.3 L, RDW Std Deviation 109.6 H, RDW Coeff of Melody 28.5 H, Plt Count 143 L, MPV 10.9, Immature Gran % (Auto) 1.000 H, Neut % (Auto) 88.2 H, Lymph % (Auto) 2.0 L, [place] % (Auto) 8.7, Eos % (Auto) 0.0, Baso % (Auto) 0.1, Absolute Neuts (auto) 14.6 H, Absolute Lymphs (auto) 0.33 L, Nucleated RBC % 0.5, Platelet Estimate ADEQUATE, Polychromasia 1+, Hypochromasia 1+, Anisocytosis 1+, Sodium 154 H, Potassium 3.4 L, Chloride 119 H, Carbon Dioxide 25.0, Anion Gap 10, BUN 103 H*, Creatinine 2.10 H, Estim Creat Clear Calc 22.63, Est GFR (MDRD) Af Amer 30 L, Est GFR (MDRD) Non-Af 25 L, BUN/Creatinine Ratio 49.0 H, Glucose 199 H, Calcium 9.4, Total Bilirubin 4.20 H, AST 75 H, ALT 46, Alkaline Phosphatase 86, Total Protein 5.6 L, Albumin 3.8, Globulin 1.8 L, Albumin/Globulin Ratio 2.1 Micro: Microbiology 08/03/24 08:15 Sputum, Expectorated/Coughed Gram Stain - Final 08/03/24 08:15 Sputum, Expectorated/Coughed Respiratory Culture - Preliminary Presumptive C albicans 07/31/24 15:20 Blood Culture (Wb) - Anticubital Left Blood Culture - Preliminary No growth in 48 hours. 08/02/24 10:40 Nasal Secretion MRSA (PCR) - Final 07/31/24 14:15 Urine Catheter - Hutson Urine Culture - Final Presumptive C albicans 07/31/24 14:15 Urine Catheter - Hutson Legionella Antigen - Final 07/31/24 14:15 Urine Catheter - Hutson Streptococcus pneumoniae Antigen (M - Final 07/31/24 14:15 Mucosa - Nose Coronavirus COVID-19 PCR - Final SARS-CoV-2 (COVID 19 PCR) 07/31/24 14:15 Mucosa - Nose Respiratory Panel (PCR) - Final 07/31/24 14:15 Nasal Secretion MRSA (PCR) - Final ABG Data ABG results: ABG 08/03/24 05:43 Specimen Type ART Sample Site R Radial pH 7.44 Bicarbonate Actual 28.2 H Total CO2 29 Base Excess 4 H O2 Saturation 93 L O2 % 68.0 ABG pCO2 41.1 ABG pO2 63 L Josue Test Positive O2 Delivery Device airvo Vent Mode Not entered Clinical Comments 60L. 68% Radiography Diagnostic Testing: Radiology Impression Abdomen Ultrasound 08/02/24 05:55 IMPRESSION: Normal left upper quadrant abdominal ultrasound examination. Electronically Signed: Dionicio Osorio MD at 9:18 EDT , Chest X-Ray 08/04/24 12:50 IMPRESSION: The tip of the right PICC line catheter is in the midportion of superior vena cava. Progressive bilateral pulmonary infiltrates worse in the left hemithorax. Electronically Signed: Justo Rainey MD at 13:23 EDT , Chest X-Ray 08/05/24 08:30 IMPRESSION: Stable examination. Electronically Signed: Justo Rainey MD at 8:46 EDT , Physical Exam Const alert and no apparent distress Constitutional Narrative: Obese. General Appearance: cooperative and ill appearing HEENT normocephalic and head/scalp atraumatic Eyes EOMs intact bilaterally, conjunctivae normal and no scleral icterus Neck supple General: trachea midline Chest inspection of chest normal Resp Effort and Inspection: tachypneic Auscultation: rhonchi and diminished lung sounds; Negative for rales or wheezes Cardio regular rate and regular rhythm GI normal to inspection, nondistended, normoactive bowel sounds Extremity no clubbing, cyanosis or edema Skin no rashes or lesions noted Neuro CN's II-XII intact bilaterally and no focal motor deficits Psych Mood & Affect: flat affect Charges/Coding Visit Charges Inpatient E&M: 08586 Subs Hosp L2
[2024-08-05] MEDS: Pantoprazole Sodium 40 MG Tablet PO (08:51)
[2024-08-05] MEDS: Aspirin E.C. 81 MG Tablet PO (08:52)
[2024-08-05] MEDS: Menthol/Lanolin/Calamine/Znox 113 GM Tube 1 APPLIC TOPICAL ×2 (08:52→22:28)
[2024-08-05] MEDS: Midodrine HCl 5 MG Tablet 10 MG PO ×3 (08:52→17:16)
[2024-08-05] MEDS: Clotrimazole 1 APPLIC Tube TOPICAL ×2 (08:53→22:28)
[2024-08-05] MEDS: dexAMETHasone 10 MG/ML Vial 6 MG IV (08:57)
[2024-08-05] MEDS: 0.9% Saline Lock 10 ML Syringe IV (08:57)
[2024-08-05] MEDS: Remdesivir 100 MG in 0.9% Normal Saline (250mL Bag) 230 ML 125 MG IV (09:25)
--- NOTE | 2024-08-05 09:38 | PN.HOSP_ITS ---
Reason for Visit Reason for Visit: Diagnoses Encephalopathy, unspecified (07/31/24) Acute and chronic respiratory failure with hypoxia (07/31/24) Hepatorenal syndrome (07/31/24) COVID-19 (07/31/24) Subjective Subjective Feeling shortness of breath. Objective Data Objective Data Vital Signs: Vital Signs Temp Pulse Resp BP Pulse Ox O2 Del Method O2 Flow Rate 35.0 C L 57 L 16 119/55 L 94 Airvo 60 08/05/24 05:00 08/05/24 07:23 08/05/24 07:23 08/05/24 05:00 08/05/24 07:23 08/05/24 07:23 08/05/24 07:23 FiO2 67 08/05/24 07:23 Oxygen Flow Rate (L/min) 60 Oxygen Delivery Method Airvo Weight: 77.61 kg Body Mass Index (BMI) 37.0 Intake & Output: Intake and Output for Last 24 Hours 08/03/24 08/04/24 08/05/24 23:59 23:59 23:59 Intake Total 600 / 600 900 / 900 1006.25 / 1006.25 Output Total 350 / 350 500 / 625 175 / 175 Balance 250 / 250 400 / 275 831.25 / 831.25 Medical Nutrition Assessment Dietitian: Malnutrition Criteria Met Start: 07/31/24 14:51 Freq: Status: Active Protocol: Document 08/03/24 15:59 RMA (Rec: 08/03/24 16:02 RMA [id number]) Nutrition Malnutrition Evidence of Malnutrition Exists Yes Malnutrition (severe): Acute Illness/Injury,Chronic Evidenced By Suboptimal Energy Intake ( Severe),Weight Loss (Severe) Intake Problem Inadequate Oral Intake Etiology related to altered GI function Signs/Symptoms as evidenced by NPO Status Active Problem Clinical Problem Acute Disease or Injury Related Malnutrition Etiology severe protein-calorie malnutrition in the context of acute on chronic disease related to inadequate oral/ energy intake Signs/Symptoms as evidenced by 14.1% unintended wt loss and oral intake meeting <75% of est nutritional needs x 2 months; currently NPO Status Active Problem Recommendation Dietitian Recommendations/Changes Recommend resume PO with liberalized regular/no added salt diet as tolerated. Add 4 oz chocolate carnation instant breakfast w/ meals as diet resumes. Adjust ONS as diet advanced to optimize PO and replete leonila/ pro. Lab / Micro Data 08/05/24 04:10 08/05/24 04:10 Labs: Laboratory Results - last 24 hr 08/04/24 13:06: POC Glucose 195 H 08/04/24 14:30: WBC 13.8 H, RBC 2.62 L, Hgb 7.9 L, Hct 27.2 L, MCV 103.8 H, MCH 30.2, MCHC 29.0 L, RDW Std Deviation 108.7 H, RDW Coeff of Melody 28.8 H, Plt Count 138 L, MPV 10.4, Immature Gran % (Auto) 1.000 H, Neut % (Auto) 88.5 H, Lymph % (Auto) 2.5 L, [place] % (Auto) 7.9, Eos % (Auto) 0.0, Baso % (Auto) 0.1, Absolute Neuts (auto) 12.2 H, Absolute Lymphs (auto) 0.35 L, Nucleated RBC % 0.3, Differential Comment SCANNED, Polychromasia 1+, Hypochromasia 1+, Anisocytosis 1+, PT 32.1 H, INR 3.2, Sodium 159 H, Potassium 2.9 L, Chloride 123 H, Carbon Dioxide 27.0, Anion Gap 9, BUN 97 H, Creatinine 1.94 H, Estim Creat Clear Calc 24.11, Est GFR (MDRD) Af Amer 33 L, Est GFR (MDRD) Non-Af 27 L, BUN/Creatinine Ratio 50.0 H, Glucose 204 H, Calcium 9.9, Total Bilirubin 4.30 H, AST 76 H, ALT 45, Alkaline Phosphatase 89, B-Natriuretic Peptide 426.9 H, Total Protein 5.9 L, Albumin 4.1, Globulin 1.8 L, Albumin/Globulin Ratio 2.3 08/04/24 15:40: Ammonia 29.0 08/04/24 18:14: POC Glucose 218 H 08/05/24 00:27: POC Glucose 198 H 08/05/24 04:10: WBC 16.6 H, RBC 2.46 L, Hgb 7.6 L, Hct 25.9 L, MCV 105.3 H, MCH 30.9, MCHC 29.3 L, RDW Std Deviation 109.6 H, RDW Coeff of Melody 28.5 H, Plt Count 143 L, MPV 10.9, Immature Gran % (Auto) 1.000 H, Neut % (Auto) 88.2 H, Lymph % (Auto) 2.0 L, [place] % (Auto) 8.7, Eos % (Auto) 0.0, Baso % (Auto) 0.1, Absolute Neuts (auto) 14.6 H, Absolute Lymphs (auto) 0.33 L, Nucleated RBC % 0.5, Platelet Estimate ADEQUATE, Polychromasia 1+, Hypochromasia 1+, Anisocytosis 1+, Sodium 154 H, Potassium 3.4 L, Chloride 119 H, Carbon Dioxide 25.0, Anion Gap 10, BUN 103 H*, Creatinine 2.10 H, Estim Creat Clear Calc 22.63, Est GFR (MDRD) Af Amer 30 L, Est GFR (MDRD) Non-Af 25 L, BUN/Creatinine Ratio 49.0 H, Glucose 199 H, Calcium 9.4, Total Bilirubin 4.20 H, AST 75 H, ALT 46, Alkaline Phosphatase 86, Total Protein 5.6 L, Albumin 3.8, Globulin 1.8 L, Albumin/Globulin Ratio 2.1 Micro: Microbiology 08/03/24 08:15 Sputum, Expectorated/Coughed Gram Stain - Final 08/03/24 08:15 Sputum, Expectorated/Coughed Respiratory Culture - Preliminary Presumptive C albicans 07/31/24 15:20 Blood Culture (Wb) - Anticubital Left Blood Culture - Preliminary No growth in 48 hours. 08/02/24 10:40 Nasal Secretion MRSA (PCR) - Final 07/31/24 14:15 Urine Catheter - Hutson Urine Culture - Final Presumptive C albicans 07/31/24 14:15 Urine Catheter - Hutson Legionella Antigen - Final 07/31/24 14:15 Urine Catheter - Hutson Streptococcus pneumoniae Antigen (M - Final 07/31/24 14:15 Mucosa - Nose Coronavirus COVID-19 PCR - Final SARS-CoV-2 (COVID 19 PCR) 07/31/24 14:15 Mucosa - Nose Respiratory Panel (PCR) - Final 07/31/24 14:15 Nasal Secretion MRSA (PCR) - Final Radiography Diagnostic Testing: Radiology Impression Chest X-Ray 08/04/24 12:50 IMPRESSION: The tip of the right PICC line catheter is in the midportion of superior vena cava. Progressive bilateral pulmonary infiltrates worse in the left hemithorax. Electronically Signed: Justo Rainey MD at 13:23 EDT , Chest X-Ray 08/05/24 08:30 IMPRESSION: Stable examination. Electronically Signed: Justo Rainey MD at 8:46 EDT , Physical Exam Const Constitutional Narrative: on airvo and breathing treatment. Weak voice. Tachypneic. Afebrile. Resp Resp Narrative: coarse breath sounds bilaterally. Cardio regular rate, regular rhythm, S1 normal heart sound and S2 normal heart sound GI normal to inspection, nondistended, normoactive bowel sounds, soft to palpation, non-tender and non-distended Extremity normal to inspection Neuro Sensorium / Orientation: awake and alert Assessment & Plan Assessment/Plan (1) Acute on chronic hypoxic respiratory failure: PLAN: Plan Acute on chronic hypoxic respiratory failure * on 2 to 4 L home O2/chronic * COPD/COVID-19 positive * wean oxygen as tolerated, but has remained on Airvo * On dexamethasone and remdesivir for COVID-19 * Cannot tolerate diuretics given worsening kidney function * Started on epiric abx w pip/tazo. DENILSON * overall worsening during hospitalization. * On D5W. Caution with respiratory status. Hypernatremia * improved, but still elevated * on D5W. Caution with respiratory status. Thrush: * fluconazole. Encephalopathy suspect metabolic * Patient has had some intermittent altered mental status * Ammonia only 36 on presentation so lower suspicion that this was hepatic encephalopathy. Antibiotics resumed, cannot rule out pneumonia at this time especially given infiltrate and productive cough but does have COVID-19 which confounds picture Chronic conditions: * CERVANTES Cirrhosis-Recently admitted to an [facility] June 2024 with decompensated cirrhosis and was aggressively diuresed-Continue lactulose and Xifaxan. Ammonia WNL. * Recent GI bleed-Reportedly had recent EGD reportedly showed gastritis and PHG- GI consulted as above-Hemoglobin 8.510/5 and down trended to 7.4 on 08/01, awaiting a.m. hemoglobin-Transfusion threshold of 8-Continue to hold Eliquis, if continues to drop may need to hold aspirin as well-08/03: Due to full dose anticoagulation being held due to this possible recent GI bleed patient also is not on pharmacologic DVT prophylaxis. Patient has had no overt bleeding since being here, will trial subcu heparin as patient having PE would be potentially catastrophic to her respiratory status-08/04: Hemoglobin stable * Low TSH-With elevated free T4Hold home Synthroid 25 mcg-08/03: Holding Synthroid * Type 2 diabetes mellitus-Glucose checks and sliding scale insulin * GERD-Continue PPI * hx afib-Holding Eliquis, metoprolol with holding parameters * Hx CAD s/p CABG-Patient on aspirin, does not appear to be overtly bleeding at this moment but awaiting a.m. hemoglobin-Metoprolol with holding parameters- Continue statin VTE prophylaxis: SCDs. DW Dr. Manzano, he discussed hospice with the pt's dtr, who was open to learning more about hospice services. Discussed with patient's dtr, Misa, waiting on hospice evaluation. Will add roxanol to help with symptoms of dyspnea. Charges/Coding Visit Charges Inpatient E&M: 70492 Subs Hosp L2
[2024-08-05 10:08] LABS: Bedside Glucose 164 mg/dL (74-106)
--- NOTE | 2024-08-05 10:37 | PCM.PN.ID ---
Physical Exam Narrative O2 stable, feeling about the same, no fever, no abd pain Const alert and no apparent distress General Appearance: cooperative Resp Auscultation: diminished lung sounds Cardio regular rate and regular rhythm GI soft to palpation, non-tender and non-distended Extremity General Extremity: edema Skin no rashes or lesions noted ID ID: Route of nutrition/ use of supplements: [] Nutritional Intake: [] IV Site: [] Hutson Catheter: [] Assessment & Plan Assessment/Plan (1) Acute on chronic hypoxic respiratory failure: (2) Encephalopathy: (3) COVID-19: PLAN: On dex. Day 4 of remdesivir. ALT/AST mildly elevated. Covid (+) / here. On empiric zosyn for possible bacterial component. Will follow
--- NOTE | 2024-08-05 10:47 | CASEMGMT ---
Addendum entered by Allie Patel 08/05/24 11:45: Return call from [facility]. Meeting time has changed to 5pm today so pt son can also be present with pt's dgt for meeting. Nursing updated. JETHRO Perez Addendum entered by Allie Patel 08/05/24 11:33: [facility] and visit has been scheduled for today at 1:00. Nursing updated. JETHRO Perez Original Note: Social Work SW received referral from physician for hospice consult. SW met with pt and dgt Misa to discuss consult. Misa confirms that she and pt are agreeable to consult and would like to use [facility]. Referral made to [facility] and clinicals faxed. Hospice to schedule an appointment with Misa and will let this SW know appointment time. JETHRO Perez
[2024-08-05] MEDS: rifAXIMin 550 MG Tablet PO (11:48)
[2024-08-05 12:06] LABS: Base Excess -2 mmol/L (-2 to +2); Bicarbonate 23.2 mmol/L (22-26); Blood Gas Specimen Type ART; Mode Not entered; O2 Delivery Device Not entered; PO2 59 mmHG (75-100); SITE R Radial; SO2 90 % (95-99); Total Carbon Dioxide 24 mmol/L; pCO2 40.1 mmHg (35-45); pH 7.37 (7.35-7.45)
[2024-08-05 12:58] LABS: Bedside Glucose 206 mg/dL (74-106)
--- NOTE | 2024-08-05 16:19 | DCINST_ITS ---
Discharge Instructions Diet Discharge Diet: No restrictions Follow Up Care Test Results: Test results from this visit will be discussed in further detail at your follow- up appointment, if applicable. Discharge Plan Admission Admit Date/Time: 07/31/24 13:10 Attending Provider: Blaine Caldwell Primary Care Provider: Rocky Solo Consulting Providers: Jarad Dang; Deb Pryor; Kal Llanos; Elliot Le; Moises Stone; Ryan Caicedo; Dillon Manzano; Zuhair Wasserman; Nixon Pina; Parth Morocho; Chayito Sanchez; Robe Pathak; Omar Hunt; Yola Neff; Jase Barger; Errol Multani; Ilya Doherty; Maciel Garcia; Cheyenne Hamilton; Dexter Danielle; Dangelo Ballard; Katt Torres; Zuhair Hsieh; Sharon Goncalves; Myesha Licona; Denise Lazo; Ivette Thompson DATA TYPIST; Alexa De La Rosa Discharge Orders/Prescriptions Prescriptions: New Xifaxan 550 mg Tablet 550 mg PO BID Qty: 10 0RF lactulose 20 gram/30 mL Solution 10 g PO TID Qty: 1200 0RF morphine concentrate 10 mg/0.5 mL Syringe 10 mg PO/SL Q1H PRN PRN (Reason: dyspnea) Qty: 0 0RF Continued albuterol sulfate 90 mcg/actuation HFA aerosol inhaler 1 puff inhalation Q6H PRN (Reason: copd) ferrous fumarate-vit C-FA 100-300-1 mg tablet 1 tab PO QODAY citalopram 20 mg tablet 20 mg PO DAILY furosemide 40 mg tablet 40 mg PO BID Jardiance 10 mg tablet 10 mg PO DAILY levothyroxine 25 mcg tablet 25 mcg PO DAILY pantoprazole 40 mg tablet,delayed release (DR/EC) 40 mg PO DAILY metoprolol tartrate 25 mg tablet 12.5 mg PO BID midodrine 10 mg tablet 10 mg PO TID Patient Comments: hold for sbp>120 and dbp>80 Rx Instructions: do not give last dose of day after 6PM or within 4 hrs of bedtime ipratropium-albuterol 0.5 mg-3 mg(2.5 mg base)/3 mL solution for nebulization 3 ml inhalation Q4H PRN (Reason: sob) melatonin 5 mg capsule 5 mg PO QHS PRN PRN (Reason: insomnia) acetaminophen 325 mg capsule 650 mg PO Q12H PRN Discontinued aspirin [Adult Low Dose Aspirin] 81 mg tablet,delayed release (DR/EC) 81 mg PO DAILY potassium chloride [Klor-Con M20] 20 mEq tablet,ER particles/crystals 20 meq PO DAILY bumetanide 2 mg tablet 2 mg PO BID simvastatin 40 mg tablet 40 mg PO QHS Eliquis 5 mg tablet 5 mg PO BID promethazine 25 mg tablet 25 mg PO Q8H PRN PRN (Reason: n/v) nitroglycerin 0.4 mg tablet, sublingual 0.4 mg sublingual Q5M PRN (Reason: chest pain) Referrals / Follow Up: Rocky Solo MD [Primary Care Provider] - Disposition Disposition (needs filled in before D/C Order can be placed): Hospice in Medical Facility
[2024-08-05] MEDS: morphine (oral solution) 10MG/0.5ML Syringe 10 MG SL/PO ×2 (17:02→18:35)
[2024-08-05 17:53] LABS: Bedside Glucose 215 mg/dL (74-106)
--- NOTE | 2024-08-05 18:04 | PCM.PN.REN ---
Subjective Subjective events noted Objective Data Objective Data Vital Signs: Vital Signs Temp Pulse Resp BP Pulse Ox O2 Del Method O2 Flow Rate 95.1 F L 58 L 20 H 143/56 H 94 Airvo 60 08/05/24 09:00 08/05/24 15:07 08/05/24 15:07 08/05/24 11:59 08/05/24 15:07 08/05/24 17:45 08/05/24 17:45 FiO2 666 08/05/24 17:45 Oxygen Flow Rate (L/min) 60 Oxygen Delivery Method Airvo Weight: 77.61 kg Body Mass Index (BMI) 37.0 Intake & Output: Intake and Output for Last 24 Hours 08/03/24 08/04/24 08/05/24 23:59 23:59 23:59 Intake Total 600 / 600 900 / 900 1356.25 / 1356.25 Output Total 350 / 350 500 / 625 425 / 425 Balance 250 / 250 400 / 275 931.25 / 931.25 Medical Nutrition Assessment Dietitian: Malnutrition Criteria Met Start: 07/31/24 14:51 Freq: Status: Active Protocol: Document 08/03/24 15:59 RMA (Rec: 08/03/24 16:02 RMA [id number]) Nutrition Malnutrition Evidence of Malnutrition Exists Yes Malnutrition (severe): Acute Illness/Injury,Chronic Evidenced By Suboptimal Energy Intake ( Severe),Weight Loss (Severe) Intake Problem Inadequate Oral Intake Etiology related to altered GI function Signs/Symptoms as evidenced by NPO Status Active Problem Clinical Problem Acute Disease or Injury Related Malnutrition Etiology severe protein-calorie malnutrition in the context of acute on chronic disease related to inadequate oral/ energy intake Signs/Symptoms as evidenced by 14.1% unintended wt loss and oral intake meeting <75% of est nutritional needs x 2 months; currently NPO Status Active Problem Recommendation Dietitian Recommendations/Changes Recommend resume PO with liberalized regular/no added salt diet as tolerated. Add 4 oz chocolate carnation instant breakfast w/ meals as diet resumes. Adjust ONS as diet advanced to optimize PO and replete leonila/ pro. Lab / Micro Data 08/05/24 04:10 08/05/24 04:10 Labs: Laboratory Results - last 24 hr 08/04/24 18:14: POC Glucose 218 H 08/05/24 00:27: POC Glucose 198 H 08/05/24 04:10: WBC 16.6 H, RBC 2.46 L, Hgb 7.6 L, Hct 25.9 L, MCV 105.3 H, MCH 30.9, MCHC 29.3 L, RDW Std Deviation 109.6 H, RDW Coeff of Melody 28.5 H, Plt Count 143 L, MPV 10.9, Immature Gran % (Auto) 1.000 H, Neut % (Auto) 88.2 H, Lymph % (Auto) 2.0 L, Cuming % (Auto) 8.7, Eos % (Auto) 0.0, Baso % (Auto) 0.1, Absolute Neuts (auto) 14.6 H, Absolute Lymphs (auto) 0.33 L, Nucleated RBC % 0.5, Platelet Estimate ADEQUATE, Polychromasia 1+, Hypochromasia 1+, Anisocytosis 1+, Sodium 154 H, Potassium 3.4 L, Chloride 119 H, Carbon Dioxide 25.0, Anion Gap 10, BUN 103 H*, Creatinine 2.10 H, Estim Creat Clear Calc 22.63, Est GFR (MDRD) Af Amer 30 L, Est GFR (MDRD) Non-Af 25 L, BUN/Creatinine Ratio 49.0 H, Glucose 199 H, Calcium 9.4, Total Bilirubin 4.20 H, AST 75 H, ALT 46, Alkaline Phosphatase 86, Total Protein 5.6 L, Albumin 3.8, Globulin 1.8 L, Albumin/Globulin Ratio 2.1 08/05/24 05:45: POC Glucose 164 H 08/05/24 11:56: POC Glucose 206 H 08/05/24 17:15: POC Glucose 215 H Micro: Microbiology 08/03/24 08:15 Sputum, Expectorated/Coughed Gram Stain - Final 08/03/24 08:15 Sputum, Expectorated/Coughed Respiratory Culture - Final Presumptive C albicans 07/31/24 15:20 Blood Culture (Wb) - Anticubital Left Blood Culture - Preliminary No growth in 48 hours. 08/02/24 10:40 Nasal Secretion MRSA (PCR) - Final 07/31/24 14:15 Urine Catheter - Hutson Urine Culture - Final Presumptive C albicans 07/31/24 14:15 Urine Catheter - [facility] Legionella Antigen - Final 07/31/24 14:15 Urine Catheter - [facility] Streptococcus pneumoniae Antigen (M - Final 07/31/24 14:15 Mucosa - Nose Coronavirus COVID-19 PCR - Final SARS-CoV-2 (COVID 19 PCR) 07/31/24 14:15 Mucosa - Nose Respiratory Panel (PCR) - Final 07/31/24 14:15 Nasal Secretion MRSA (PCR) - Final ABG Data ABG results: ABG 08/05/24 12:01 Specimen Type ART Sample Site R Radial pH 7.37 Bicarbonate Actual 23.2 Total CO2 24 Base Excess -2 O2 Saturation 90 L O2 % 67.0 ABG pCO2 40.1 ABG pO2 59 L O2 Delivery Device Not entered Vent Mode Not entered Radiography Diagnostic Testing: Radiology Impression Chest X-Ray 08/05/24 08:30 IMPRESSION: Stable examination. Electronically Signed: Justo Rainey MD at 8:46 EDT , Physical Exam Const no apparent distress and average body habitus General Appearance: well developed Orientation / Consciousness: oriented to person and lethargic Nutritional Appearance: obese HEENT normocephalic Neck no lymphadenopathy Resp no use of accessory muscles and clear to auscultation bilaterally Auscultation: diminished lung sounds Cardio regular rate GI non-tender and non-distended Auscultation: normoactive bowel sounds Skin no rashes or lesions noted General Skin Exam: ecchymosis Neuro Sensorium / Orientation: lethargic and somnolent Psych cooperative Memory / Cognition: cognition impaired Assessment & Plan Assessment/Plan (1) Hepatorenal syndrome: PLAN: DENILSON vs CKD Possible creatinine 1.4-1.6 is the baseline. DENILSON due to ATN Hyper natremia. on D5W likely hospice will sign off
[2024-08-06 00:51] LABS: Bedside Glucose 163 mg/dL (74-106)
[2024-08-06 05:01] VITALS: BP 133/57; PULSE 55; RESP 12; TEMP 34.5; O2SAT 95
[2024-08-06 06:00] VITALS: BMI 37.4
[2024-08-06] MEDS: Piperacil/Tazobactam 3.375 GM in 0.9% Normal Saline (50mL MB+) 50 ML IV (06:15)
[2024-08-06 06:17] VITALS: BP 146/53; PULSE 57; RESP 13; TEMP 35.4; O2SAT 96
[2024-08-06 06:43] LABS: Absolute Lymphocyte Count 0.37 X10^3/uL (0.83-4.51); Absolute Neutrophil Count 18.7 X10^3/uL (2.0-7.7); Basophil# 0.02 X10^3/uL; Basophil% 0.1 % (0-1); Hematocrit 27.1 % (37-47); Hemoglobin 7.8 g/dL (12.0-15.0); Lymphocyte # 0.37 X10^3/ul (0.83-4.51); Lymphocyte % 1.8 % (19-41); Mean Corp Hgb Conc 28.8 g/dL (32-36); Mean Corpuscular Volume 104.2 fL (81-99); Mean Platelet Vol. 11.4 fl (6.2-12.0); Monocyte# 1.52 X10^3/uL; Monocyte% 7.3 % (0-10); NRBC Flagged by Analyzer 0.6 % (0-5); Neutrophil # 18.72 X10^3/uL (2.7-7.7); Neutrophil % 89.8 % (47-70); POSITIVE DIFFERENTIAL YES; POSITIVE MORPHOLOGY YES; Platelet Count 107 K/mm3 (150-450); RBC Distribution Width CV 27.4 % (11.6-14.6); White Blood Count 20.8 K/mm3 (4.4-11.0)
[2024-08-06 06:47] LABS: Differential Indicated SCAN CRITERIA MET; RBC Distribution Width SD 104.7 fl (35.1-43.9)
[2024-08-06 07:12] VITALS: PULSE 58; RESP 20
[2024-08-06] MEDS: Budesonide Respules 0.5 MG/2 ML AMPUL.NEB. INHALATION (07:12)
[2024-08-06] MEDS: Ipratropium/Albuterol Sulfate 3 ML AMPUL.NEB INHALATION (07:12)
[2024-08-06 07:24] LABS: Anisocytosis 2+; Burr Cells 1+; Differential Comment SCANNED; Ovalocyte 1+; Polychromasia 1+; Schistocytes 1+; Target Cells 1+
[2024-08-06 07:25] LABS: Bite Cell 1+
[2024-08-06 07:36] LABS: ALB/GLOB Ratio 1.8 RATIO (0.9-2.4); AST(SGOT) 84 U/L (15-37); Alanine Aminotransfer ALT/SGPT 50 U/L (13-56); Albumin, Serum 3.5 g/dL (3.2-5.0); Alkaline Phosphatase 102 U/L (45-117); Anion Gap 11 (5-15); BUN 121 mg/dL (7-18); BUN/Creat Ratio 42.2 RATIO (10-20); Calcium,Total 8.8 mg/dL (8.5-10.1); Chloride 119 mmol/L (98-107); Creatinine, Serum 2.87 mg/dL (0.55-1.02); EST Glomerular Filtration Rate 17 mL/min (>60); Est Glom Filt Rate - Afr Amer 21 mL/min (>60); Estimated Creatinine Clearance 16.66 ml/min; Globulin 1.9 g/dL (2.2-4.2); Glucose 170 mg/dL (74-106); Potassium 3.5 mmol/L (3.5-5.1); Protein, Total 5.4 g/dL (6.4-8.2); Sodium Level 154 mmol/L (136-145)
[2024-08-06 08:12] LABS: AFP, Tumor Marker 3.5 ng/mL (0.0-9.2)
[2024-08-06 10:02] VITALS: BP 118/56; PULSE 63; RESP 13; TEMP 35.6; O2SAT 87
[2024-08-06] MEDS: morphine (oral solution) 10MG/0.5ML Syringe 10 MG SL/PO ×7 (10:34→20:44)
[2024-08-06] MEDS: Menthol/Lanolin/Calamine/Znox 113 GM Tube 1 APPLIC TOPICAL (12:48)
[2024-08-06] MEDS: Atropine Sulfate 1% 2 ml Bottle 4 DRP PO ×3 (13:15→20:45)
[2024-08-06] MEDS: LORazepam 2 MG/ML Bottle 1 MG SL ×2 (13:15→17:40)
[2024-08-06 13:19] LABS: Pathologist Review Reviewed
--- NOTE | 2024-08-06 13:30 | PN.HOSP_ITS ---
Reason for Visit Reason for Visit: Diagnoses Encephalopathy, unspecified (07/31/24) Acute and chronic respiratory failure with hypoxia (07/31/24) Hepatorenal syndrome (07/31/24) COVID-19 (07/31/24) Subjective Subjective Still short of breath on Airvo. Unable to be titrated down Objective Data Objective Data Vital Signs: Vital Signs Temp Pulse Resp BP Pulse Ox O2 Del Method O2 Flow Rate 35.6 C L 63 13 118/56 L 87 Airvo 70 08/06/24 10:02 08/06/24 10:02 08/06/24 10:02 08/06/24 10:02 08/06/24 10:02 08/06/24 10:02 08/06/24 06:17 FiO2 77 08/06/24 06:17 Oxygen Flow Rate (L/min) 70 Oxygen Delivery Method Airvo Weight: 78.5 kg Body Mass Index (BMI) 37.4 Intake & Output: Intake and Output for Last 24 Hours 08/04/24 08/05/24 08/06/24 23:59 23:59 23:59 Intake Total 900 / 900 3356.25 / 3356.25 100 / 100 Output Total 500 / 625 475 / 475 50 / 50 Balance 400 / 275 2881.25 / 2881.25 50 / 50 Medical Nutrition Assessment Dietitian: Malnutrition Criteria Met Start: 07/31/24 14:51 Freq: Status: Active Protocol: Document 08/03/24 15:59 RMA (Rec: 08/03/24 16:02 RMA [id number]) Nutrition Malnutrition Evidence of Malnutrition Exists Yes Malnutrition (severe): Acute Illness/Injury,Chronic Evidenced By Suboptimal Energy Intake ( Severe),Weight Loss (Severe) Intake Problem Inadequate Oral Intake Etiology related to altered GI function Signs/Symptoms as evidenced by NPO Status Active Problem Clinical Problem Acute Disease or Injury Related Malnutrition Etiology severe protein-calorie malnutrition in the context of acute on chronic disease related to inadequate oral/ energy intake Signs/Symptoms as evidenced by 14.1% unintended wt loss and oral intake meeting <75% of est nutritional needs x 2 months; currently NPO Status Active Problem Recommendation Dietitian Recommendations/Changes Recommend resume PO with liberalized regular/no added salt diet as tolerated. Add 4 oz chocolate carnation instant breakfast w/ meals as diet resumes. Adjust ONS as diet advanced to optimize PO and replete leonila/ pro. Lab / Micro Data 08/06/24 06:00 08/06/24 06:00 Labs: Laboratory Results - last 24 hr 08/04/24 14:30: Tumor Marker AFP 3.5 08/05/24 17:15: POC Glucose 215 H 08/05/24 22:30: POC Glucose 163 H 08/06/24 06:00: WBC 20.8 H, RBC 2.60 L, Hgb 7.8 L, Hct 27.1 L, MCV 104.2 H, MCH 30.0, MCHC 28.8 L, RDW Std Deviation 104.7 H, RDW Coeff of Melody 27.4 H, Plt Count 107 L, MPV 11.4, Immature Gran % (Auto) 1.000 H, Neut % (Auto) 89.8 H, Lymph % (Auto) 1.8 L, [place] % (Auto) 7.3, Eos % (Auto) 0.0, Baso % (Auto) 0.1, Absolute Neuts (auto) 18.7 H, Absolute Lymphs (auto) 0.37 L, Nucleated RBC % 0.6, Differential Comment SCANNED, Diff Path Review Reviewed, Polychromasia 1+, Anisocytosis 2+, Target Cells 1+, Ovalocytes 1+, Streator Cells 1+, Bite Cells 1+, Schistocytes 1+, Sodium 154 H, Potassium 3.5, Chloride 119 H, Carbon Dioxide 24.0, Anion Gap 11, BUN 121 H*, Creatinine 2.87 H, Estim Creat Clear Calc 16.66, Est GFR (MDRD) Af Amer 21 L, Est GFR (MDRD) Non-Af 17 L, BUN/Creatinine Ratio 42.2 H, Glucose 170 H, Calcium 8.8, Total Bilirubin 5.40 H, AST 84 H, ALT 50, Alkaline Phosphatase 102, Total Protein 5.4 L, Albumin 3.5, Globulin 1.9 L, Albumin/Globulin Ratio 1.8 Micro: Microbiology 07/31/24 15:20 Blood Culture (Wb) - Anticubital Left Blood Culture - Final No growth in 5 days. 08/03/24 08:15 Sputum, Expectorated/Coughed Gram Stain - Final 08/03/24 08:15 Sputum, Expectorated/Coughed Respiratory Culture - Final Presumptive C albicans 08/02/24 10:40 Nasal Secretion MRSA (PCR) - Final 07/31/24 14:15 Urine Catheter - Hutson Urine Culture - Final Presumptive C albicans 07/31/24 14:15 Urine Catheter - [facility] Legionella Antigen - Final 07/31/24 14:15 Urine Catheter - [facility] Streptococcus pneumoniae Antigen (M - Final 07/31/24 14:15 Mucosa - Nose Coronavirus COVID-19 PCR - Final SARS-CoV-2 (COVID 19 PCR) 07/31/24 14:15 Mucosa - Nose Respiratory Panel (PCR) - Final 07/31/24 14:15 Nasal Secretion MRSA (PCR) - Final Physical Exam Const Constitutional Narrative: tachypneic. mouth breathing while on airvo. Resp normal respiratory effort, no use of accessory muscles and clear to auscultation bilaterally Cardio regular rate, regular rhythm, S1 normal heart sound and S2 normal heart sound GI normal to inspection, nondistended, normoactive bowel sounds, soft to palpation, non-tender and non-distended Extremity normal to inspection Neuro Sensorium / Orientation: awake and alert Assessment & Plan Assessment/Plan (1) Acute on chronic hypoxic respiratory failure: PLAN: Plan Acute on chronic hypoxic respiratory failure * on 2 to 4 L home O2/chronic * COPD/COVID-19 positive * wean oxygen as tolerated, but has remained on Airvo * On dexamethasone and remdesivir for COVID-19 * Cannot tolerate diuretics given worsening kidney function * Started on epiric abx w pip/tazo. DENILSON * overall worsening during hospitalization. * On D5W. Caution with respiratory status. Hypernatremia * improved, but still elevated * on D5W. Caution with respiratory status. Thrush: * fluconazole. Encephalopathy suspect metabolic * Patient has had some intermittent altered mental status * Ammonia only 36 on presentation so lower suspicion that this was hepatic encephalopathy. Antibiotics resumed, cannot rule out pneumonia at this time especially given infiltrate and productive cough but does have COVID-19 which confounds picture Chronic conditions: * CERVANTES Cirrhosis-Recently admitted to an [facility] hospital June 2024 with decompensated cirrhosis and was aggressively diuresed-Continue lactulose and Xifaxan. Ammonia WNL. * Recent GI bleed-Reportedly had recent EGD reportedly showed gastritis and PHG- GI consulted as above-Hemoglobin 8.510/5 and down trended to 7.4 on 08/01, awaiting a.m. hemoglobin-Transfusion threshold of 8-Continue to hold Eliquis, if continues to drop may need to hold aspirin as well-08/03: Due to full dose anticoagulation being held due to this possible recent GI bleed patient also is not on pharmacologic DVT prophylaxis. Patient has had no overt bleeding since being here, will trial subcu heparin as patient having PE would be potentially catastrophic to her respiratory status-08/04: Hemoglobin stable * Low TSH-With elevated free T4Hold home Synthroid 25 mcg-08/03: Holding Synthroid * Type 2 diabetes mellitus-Glucose checks and sliding scale insulin * GERD-Continue PPI * hx afib-Holding Eliquis, metoprolol with holding parameters * Hx CAD s/p CABG-Patient on aspirin, does not appear to be overtly bleeding at this moment but awaiting a.m. hemoglobin-Metoprolol with holding parameters- Continue statin VTE prophylaxis: SCDs. With patient proceeding with hospice care, though since she is requiring too much oxygen, will manage hospice care in the hospital and I will deescalate medical care. DW patient's daughter. Charges/Coding Visit Charges Inpatient E&M: 49874 Subs Hosp L2
[2024-08-06 20:49] VITALS: BP 128/60; PULSE 64; RESP 14; TEMP 34.3; O2SAT 72
[2024-08-07] MEDS: LORazepam 2 MG/ML Bottle 1 MG SL ×2 (01:23→06:04)
[2024-08-07] MEDS: morphine (oral solution) 10MG/0.5ML Syringe 10 MG SL/PO ×4 (01:23→14:54)
[2024-08-07] MEDS: Atropine Sulfate 1% 2 ml Bottle 4 DRP PO ×2 (07:05→10:48)
[2024-08-07 08:00] VITALS: BP 83/55; PULSE 66; RESP 14; TEMP 35.6; O2SAT 83
--- NOTE | 2024-08-07 08:42 | PN.HOSP_ITS ---
Reason for Visit Reason for Visit: Diagnoses Encephalopathy, unspecified (07/31/24) Acute and chronic respiratory failure with hypoxia (07/31/24) Hepatorenal syndrome (07/31/24) COVID-19 (07/31/24) Subjective Subjective Able to be placed on 15 liters (from Airvo). Objective Data Objective Data Vital Signs: Vital Signs Temp Pulse Resp BP Pulse Ox O2 Del Method O2 Flow Rate 35.6 C L 66 14 83/55 L 83 High Flow 15 08/07/24 08:00 08/07/24 08:00 08/07/24 08:00 08/07/24 08:00 08/07/24 08:00 08/07/24 08:28 08/07/24 08:28 FiO2 77 08/06/24 06:17 Oxygen Flow Rate (L/min) 15 Oxygen Delivery Method High Flow Weight: 78.5 kg Body Mass Index (BMI) 37.4 Intake & Output: Intake and Output for Last 24 Hours 08/05/24 08/06/24 08/07/24 23:59 23:59 23:59 Intake Total 3356.25 / 3356.25 100 / 100 Output Total 475 / 475 50 / 50 Balance 2881.25 / 2881.25 50 / 50 Medical Nutrition Assessment Dietitian: Malnutrition Criteria Met Start: 07/31/24 14:51 Freq: Status: Active Protocol: Document 08/03/24 15:59 RMA (Rec: 08/03/24 16:02 RMA [id number]) Nutrition Malnutrition Evidence of Malnutrition Exists Yes Malnutrition (severe): Acute Illness/Injury,Chronic Evidenced By Suboptimal Energy Intake ( Severe),Weight Loss (Severe) Intake Problem Inadequate Oral Intake Etiology related to altered GI function Signs/Symptoms as evidenced by NPO Status Active Problem Clinical Problem Acute Disease or Injury Related Malnutrition Etiology severe protein-calorie malnutrition in the context of acute on chronic disease related to inadequate oral/ energy intake Signs/Symptoms as evidenced by 14.1% unintended wt loss and oral intake meeting <75% of est nutritional needs x 2 months; currently NPO Status Active Problem Recommendation Dietitian Recommendations/Changes Recommend resume PO with liberalized regular/no added salt diet as tolerated. Add 4 oz chocolate carnation instant breakfast w/ meals as diet resumes. Adjust ONS as diet advanced to optimize PO and replete leonila/ pro. Lab / Micro Data 08/06/24 06:00 08/06/24 06:00 Labs: Laboratory Results - last 24 hr 08/06/24 06:00: Diff Path Review Reviewed Micro: Microbiology 07/31/24 15:20 Blood Culture (Wb) - Anticubital Left Blood Culture - Final No growth in 5 days. 08/03/24 08:15 Sputum, Expectorated/Coughed Gram Stain - Final 08/03/24 08:15 Sputum, Expectorated/Coughed Respiratory Culture - Final Presumptive C albicans 08/02/24 10:40 Nasal Secretion MRSA (PCR) - Final 07/31/24 14:15 Urine Catheter - Hutson Urine Culture - Final Presumptive C albicans 07/31/24 14:15 Urine Catheter - [place] Legionella Antigen - Final 07/31/24 14:15 Urine Catheter - [place] Streptococcus pneumoniae Antigen (M - Final 07/31/24 14:15 Mucosa - Nose Coronavirus COVID-19 PCR - Final SARS-CoV-2 (COVID 19 PCR) 07/31/24 14:15 Mucosa - Nose Respiratory Panel (PCR) - Final 07/31/24 14:15 Nasal Secretion MRSA (PCR) - Final Physical Exam Const Constitutional Narrative: did not respond to voice. I did not attempt to wake her up. Mouth breathing. . Resp Resp Narrative: coarse audible breath sounds Assessment & Plan Assessment/Plan (1) Acute on chronic hypoxic respiratory failure: PLAN: Plan Acute on chronic hypoxic respiratory failure * on 2 to 4 L home O2/chronic * COPD/COVID-19 positive * wean oxygen as tolerated, but has remained on Airvo * On dexamethasone and remdesivir for COVID-19 * Cannot tolerate diuretics given worsening kidney function * Started on epiric abx w pip/tazo. DENILSON * overall worsening during hospitalization. No additional work up Hypernatremia * No additional work up. Thrush: * supportive treatment given poor prognosis. Encephalopathy suspect metabolic * Patient has had some intermittent altered mental status * Ammonia only 36 on presentation so lower suspicion that this was hepatic encephalopathy. Antibiotics resumed, cannot rule out pneumonia at this time especially given infiltrate and productive cough but does have COVID-19 which confounds picture Chronic conditions: * CERVANTES Cirrhosis-Recently admitted to an [facility] June 2024 with decompensated cirrhosis and was aggressively diuresed-Continue lactulose and Xifaxan. Ammonia WNL. * Recent GI bleed-Reportedly had recent EGD reportedly showed gastritis and PHG- GI consulted as above-Hemoglobin 8.510/5 and down trended to 7.4 on 08/01, awaiting a.m. hemoglobin-Transfusion threshold of 8-Continue to hold Eliquis, if continues to drop may need to hold aspirin as well-08/03: Due to full dose anticoagulation being held due to this possible recent GI bleed patient also is not on pharmacologic DVT prophylaxis. Patient has had no overt bleeding since being here, will trial subcu heparin as patient having PE would be potentially catastrophic to her respiratory status-08/04: Hemoglobin stable * Low TSH-With elevated free T4Hold home Synthroid 25 mcg-08/03: Holding Synthroid * Type 2 diabetes mellitus-Glucose checks and sliding scale insulin * GERD-Continue PPI * hx afib-Holding Eliquis, metoprolol with holding parameters * Hx CAD s/p CABG-Patient on aspirin, does not appear to be overtly bleeding at this moment but awaiting a.m. hemoglobin-Metoprolol with holding parameters- Continue statin VTE prophylaxis: SCDs. With patient proceeding with hospice care, though since she is requiring too much oxygen, will manage hospice care in the hospital and I will deescalate medical care. We were managing patient in the hospital with hospice care as she was requiring too much oxygen to go to the hospice care unit. Today, patient is able to tolerate 15 L though her oxygen level is low. Hospice came back to reevaluate the patient and deemed that she is a good candidate to go to the inpatient hospice unit today.
--- NOTE | 2024-08-07 10:54 | CASEMGMT ---
Physician asked if patient could be re-evaluated for the inpatient Hospice Unit. VERENICE called Hospice and spoke with Yelitza. Yelitza said she will send a message to admissions and they will assign a nurse to come back to the hospital. VERENICE notified physician. Kacie GALLAGHER
--- NOTE | 2024-08-07 14:03 | NURSING ---
This RN called and gave report to radiologic technologist chiefLisandra
--- NOTE | 2024-08-07 14:25 | DS.PCM_ITS ---
Providers Date of Admission: 07/31/24 Primary Care Physician: Dr. Rocky Solo MD Consultations 07/30/24 21:22 Consult: Gastroenterology Routine Consulting Provider: [facility] Reason for Consult: Recent dx hepatic cirrhosis, elevated bili/LFT EMERGENT Consult: No Notified: Yes Date Notified: 07/31/24 Time Notified: 12:33 Method of Notification: Text 07/30/24 21:28 Consult: Nephrology Routine Consulting Provider: Jarad Dang Reason for Consult: Txf from OSH, DENILSON on CKD EMERGENT Consult: No MD Notified: Yes Date Notified: 07/31/24 Time Notified: 12:41 Method of Notification: Answering Service 07/31/24 13:42 Consult: Nephrology Routine Consulting Provider: Deb Pryor Reason for Consult: CKD Stage 3b EMERGENT Consult: No Notified: Yes Date Notified: 07/31/24 Time Notified: 13:42 Method of Notification: Text 08/01/24 10:25 Consult: Infectious Disease Routine Consulting Provider: Kal Llanos Reason for Consult: covid positive, on Dexa, not candidate EMERGENT Consult: No MD Notified: Yes Date Notified: 08/01/24 Time Notified: 10:26 Method of Notification: ED Physician Initiated 08/02/24 09:58 Consult: Burr Sander / Pulmonary Medicine Routine Consulting Provider: [facility] Reason for Consult: Worsening hypoxic resp failure now on airvo, covid, copd, hfpef, elevatedCr EMERGENT Consult: No MD Notified: Yes Date Notified: 08/02/24 Time Notified: 10:23 Method of Notification: Text 08/05/24 09:53 Consult: Hospice / Palliative Care Routine Consulting Provider: [facility] Reason for Consult: end of life care EMERGENT Consult: No MD Notified: Yes Date Notified: 08/05/24 Time Notified: 11:36 Method of Notification: per medical social consultant Reason For Visit: LIVER CIRRHOSIS/HEPATIC ENCEPH,DENILSON ON CKD,GI BLEED Diagnosis Discharge Diagnosis (1) Acute on chronic hypoxic respiratory failure: Status: Chronic Code(s): J96.21 - Acute and chronic respiratory failure with hypoxia Plan Acute on chronic hypoxic respiratory failure * on 2 to 4 L home O2/chronic * COPD/COVID-19 positive * wean oxygen as tolerated, but has remained on Airvo * On dexamethasone and remdesivir for COVID-19 * Cannot tolerate diuretics given worsening kidney function * Started on epiric abx w pip/tazo. DENILSON * overall worsening during hospitalization. No additional work up Hypernatremia * No additional work up. Thrush: * supportive treatment given poor prognosis. Encephalopathy suspect metabolic * Patient has had some intermittent altered mental status * Ammonia only 36 on presentation so lower suspicion that this was hepatic encephalopathy. Antibiotics resumed, cannot rule out pneumonia at this time especially given infiltrate and productive cough but does have COVID-19 which confounds picture Chronic conditions: * CERVANTES Cirrhosis-Recently admitted to an [facility] hospital June 2024 with decompensated cirrhosis and was aggressively diuresed-Continue lactulose and Xifaxan. Ammonia WNL. * Recent GI bleed-Reportedly had recent EGD reportedly showed gastritis and PHG- GI consulted as above-Hemoglobin 8.510/5 and down trended to 7.4 on 08/01, awaiting a.m. hemoglobin-Transfusion threshold of 8-Continue to hold Eliquis, if continues to drop may need to hold aspirin as well-08/03: Due to full dose anticoagulation being held due to this possible recent GI bleed patient also is not on pharmacologic DVT prophylaxis. Patient has had no overt bleeding since being here, will trial subcu heparin as patient having PE would be potentially catastrophic to her respiratory status-08/04: Hemoglobin stable * Low TSH-With elevated free T4Hold home Synthroid 25 mcg-08/03: Holding Synthroid * Type 2 diabetes mellitus-Glucose checks and sliding scale insulin * GERD-Continue PPI * hx afib-Holding Eliquis, metoprolol with holding parameters * Hx CAD s/p CABG-Patient on aspirin, does not appear to be overtly bleeding at this moment but awaiting a.m. hemoglobin-Metoprolol with holding parameters- Continue statin VTE prophylaxis: SCDs. With patient proceeding with hospice care, though since she is requiring too much oxygen, will manage hospice care in the hospital and I will deescalate medical care. We were managing patient in the hospital with hospice care as she was requiring too much oxygen to go to the hospice care unit. Today, patient is able to tolerate 15 L though her oxygen level is low. Hospice came back to reevaluate the patient and deemed that she is a good candidate to go to the inpatient hospice unit today. Medications at Discharge Home Medications acetaminophen 325 mg capsule 650 mg PO Q12H PRN fever or pain 07/31/24 albuterol sulfate 90 mcg/actuation aerosol inhaler 1 puff inhalation Q6H PRN copd 07/31/24 citalopram 20 mg tablet 20 mg PO DAILY 07/31/24 empagliflozin 10 mg tablet (Jardiance) 10 mg PO DAILY 07/31/24 ferrous fumarate 100 mg iron-vit C 300 mg-folic acid 1 mg tablet 1 tab PO QODAY supplement 07/31/24 furosemide 40 mg tablet 40 mg PO BID 07/31/24 ipratropium 0.5 mg-albuterol 3 mg (2.5 mg base)/3 mL nebulization soln 3 ml inhalation Q4H PRN sob 07/31/24 levothyroxine 25 mcg tablet 25 mcg PO DAILY 07/31/24 melatonin 5 mg capsule 5 mg PO QHS PRN PRN insomnia 07/31/24 metoprolol tartrate 25 mg tablet 12.5 mg PO BID bp 07/31/24 midodrine 10 mg tablet 10 mg PO TID hypotension 07/31/24 pantoprazole 40 mg tablet,delayed release 40 mg PO DAILY 07/31/24 lactulose 20 gram/30 mL oral solution 10 g (15 mL) PO TID #1,200 mL 08/05/24 morphine concentrate 10 mg/0.5 mL oral syringe (FOR ORAL USE ONLY) 10 mg (0.5 mL) PO/SL Q1H PRN PRN dyspnea #0 ea 08/05/24 rifaximin 550 mg tablet (Xifaxan) 550 mg PO BID #10 tabs 08/05/24 Hospital Course Procedures 2-D Echocardiogram Summary of Care Provided Minutes Spent on Discharge: 32 Hospital Course: Patient presents with confusion. Patient was a transfer from outside hospital in [facility]. Patient was found to have a COVID-19 and was treated with dexamethasone and remdesivir. Treated for volume overload with diuretics but was unable to tolerate that given worsening kidney function. Patient was seen by gastroenterology, infectious disease, nephrology. Patient's condition continued to deteriorate. When I had seen the patient on the , the daughter had previous discussed with pulmonology and wish to speak with hospice. Initially met with hospice on the but was on Airvo and requiring too much oxygen to be discharged to the hospice unit. The patient was manage here we de- escalated therapy and patient today was able to be placed on 15 L nasal cannula which would be amenable at the inpatient hospice unit. Patient does somnolent today. Though her vital signs, other than her pulse ox, stable. Patient will be discharged to the inpatient hospice unit today. Medical Records Data Medical Nutrition Assessment Dietitian: Malnutrition Criteria Met Start: 07/31/24 14:51 Freq: Status: Active Protocol: Document 08/03/24 15:59 RMA (Rec: 08/03/24 16:02 RMA [id number]) Nutrition Malnutrition Evidence of Malnutrition Exists Yes Malnutrition (severe): Acute Illness/Injury,Chronic Evidenced By Suboptimal Energy Intake ( Severe),Weight Loss (Severe) Intake Problem Inadequate Oral Intake Etiology related to altered GI function Signs/Symptoms as evidenced by NPO Status Active Problem Clinical Problem Acute Disease or Injury Related Malnutrition Etiology severe protein-calorie malnutrition in the context of acute on chronic disease related to inadequate oral/ energy intake Signs/Symptoms as evidenced by 14.1% unintended wt loss and oral intake meeting <75% of est nutritional needs x 2 months; currently NPO Status Active Problem Recommendation Dietitian Recommendations/Changes Recommend resume PO with liberalized regular/no added salt diet as tolerated. Add 4 oz chocolate carnation instant breakfast w/ meals as diet resumes. Adjust ONS as diet advanced to optimize PO and replete leonila/ pro. Weight / BMI Weight Weight: 78.5 kg Body Mass Index (BMI) 37.4 ABG / Lab / Microbiology Data 08/06/24 06:00 08/06/24 06:00 Microbiology: Microbiology 07/31/24 15:20 Blood Culture (Wb) - Anticubital Left Blood Culture - Final No growth in 5 days. 08/03/24 08:15 Sputum, Expectorated/Coughed Gram Stain - Final 08/03/24 08:15 Sputum, Expectorated/Coughed Respiratory Culture - Final Presumptive C albicans 08/02/24 10:40 Nasal Secretion MRSA (PCR) - Final 07/31/24 14:15 Urine Catheter - [place] Urine Culture - Final Presumptive C albicans 07/31/24 14:15 Urine Catheter - [place] Legionella Antigen - Final 07/31/24 14:15 Urine Catheter - [place] Streptococcus pneumoniae Antigen (M - Final 07/31/24 14:15 Mucosa - Nose Coronavirus COVID-19 PCR - Final SARS-CoV-2 (COVID 19 PCR) 07/31/24 14:15 Mucosa - Nose Respiratory Panel (PCR) - Final 07/31/24 14:15 Nasal Secretion MRSA (PCR) - Final D/C Instructions Discharge Diet: No restrictions Meaningful Use Info Meaningful Use Meaningful Use Diagnoses (Choose all that apply): None applicable Ischemic Stroke Statin Dosing Therapy Reference: STATIN DOSE THERAPY REFERENCE: * Patients > 75 years receive moderate or high dose statin therapy. * Patients 75 years or YOUNGER should receive HIGH intensity statin dose unless contraindicated. You will be required to document reason for non-treatment if statin daily dose does not meet guidelines. HIGH DOSE STATIN THERAPY DAILY Atorvastatin > than or = to 40 mg Rosuvastatin > than or = to 20 mg Amlodipine + Atorvastatin > than or = to 2.5/40 mg Ezetimibe + Simvastatin 10/80 mg Simvastatin 80mg Discharge Plan Admission Admit Date/Time: 07/31/24 13:10 Primary Reason for Your Visit: COVID 19 Attending Provider: Blaine Caldwell Primary Care Provider: Rocky Solo Consulting Providers: Elliot Le; Katt Torres; Zuhair Hsieh; Sharon Goncalves; Myesha Licona; Denise Lazo; Ivette Thompson NP; Alexa De La Rosa; Kal Llanos; Jarad Dang; Deb Pryor Discharge Orders/Prescriptions Prescriptions: New Xifaxan 550 mg Tablet 550 mg PO BID Qty: 10 0RF lactulose 20 gram/30 mL Solution 10 g PO TID Qty: 1200 0RF morphine concentrate 10 mg/0.5 mL Syringe 10 mg PO/SL Q1H PRN PRN (Reason: dyspnea) Qty: 0 0RF Continued albuterol sulfate 90 mcg/actuation HFA aerosol inhaler 1 puff inhalation Q6H PRN (Reason: copd) ferrous fumarate-vit C-FA 100-300-1 mg tablet 1 tab PO QODAY citalopram 20 mg tablet 20 mg PO DAILY furosemide 40 mg tablet 40 mg PO BID Jardiance 10 mg tablet 10 mg PO DAILY levothyroxine 25 mcg tablet 25 mcg PO DAILY pantoprazole 40 mg tablet,delayed release (DR/EC) 40 mg PO DAILY metoprolol tartrate 25 mg tablet 12.5 mg PO BID midodrine 10 mg tablet 10 mg PO TID Patient Comments: hold for sbp>120 and dbp>80 Rx Instructions: do not give last dose of day after 6PM or within 4 hrs of bedtime ipratropium-albuterol 0.5 mg-3 mg(2.5 mg base)/3 mL solution for nebulization 3 ml inhalation Q4H PRN (Reason: sob) melatonin 5 mg capsule 5 mg PO QHS PRN PRN (Reason: insomnia) acetaminophen 325 mg capsule 650 mg PO Q12H PRN Discontinued aspirin [Adult Low Dose Aspirin] 81 mg tablet,delayed release (DR/EC) 81 mg PO DAILY potassium chloride [Klor-Con M20] 20 mEq tablet,ER particles/crystals 20 meq PO DAILY bumetanide 2 mg tablet 2 mg PO BID simvastatin 40 mg tablet 40 mg PO QHS Eliquis 5 mg tablet 5 mg PO BID promethazine 25 mg tablet 25 mg PO Q8H PRN PRN (Reason: n/v) nitroglycerin 0.4 mg tablet, sublingual 0.4 mg sublingual Q5M PRN (Reason: chest pain) Referrals / Follow Up: Rocky Solo MD [Primary Care Provider] - Disposition Disposition (needs filled in before D/C Order can be placed): Hospice in Medical Facility Charges/Coding Visit Charges Inpatient E&M: 30450 Disch Hosp >30min
== END 2024-08-07 15:25 | disposition hospice, inpatient (51) | DRG 177 ==
PROVIDERS: Internal Medicine; Internal Medicine Critical Care Medicine; Admitting Provider Family Medicine; PCP Family Medicine; Referring Provider Internal Medicine
DX: U07.1 COVID-19 (principal); J12.82 Pneumonia due to coronavirus disease 2019; K76.7 Hepatorenal syndrome; J96.21 Acute and chronic respiratory failure with hypoxia; N17.0 Acute kidney failure with tubular necrosis; E43 Unspecified severe protein-calorie malnutrition; J15.9 Unspecified bacterial pneumonia; G93.41 Metabolic encephalopathy; B37.0 Candidal stomatitis; I13.0 Hypertensive heart and chronic kidney disease with heart failure and stage 1 through stage 4 chronic kidney disease, or unspecified chronic kidney disease; J44.0 Chronic obstructive pulmonary disease with (acute) lower respiratory infection; I50.32 Chronic diastolic (congestive) heart failure; E87.0 Hyperosmolality and hypernatremia; N18.32 Chronic kidney disease, stage 3b; E11.65 Type 2 diabetes mellitus with hyperglycemia; E03.9 Hypothyroidism, unspecified; D63.1 Anemia in chronic kidney disease; F32.A Depression, unspecified; Z68.37 Body mass index [BMI] 37.0-37.9, adult; I48.0 Paroxysmal atrial fibrillation; E11.22 Type 2 diabetes mellitus with diabetic chronic kidney disease; K75.81 Nonalcoholic steatohepatitis (NASH); E87.8 Other disorders of electrolyte and fluid balance, not elsewhere classified; I25.10 Atherosclerotic heart disease of native coronary artery without angina pectoris; E78.5 Hyperlipidemia, unspecified; K74.60 Unspecified cirrhosis of liver; K21.9 Gastro-esophageal reflux disease without esophagitis; F41.9 Anxiety disorder, unspecified; M62.84 Sarcopenia; R13.12 Dysphagia, oropharyngeal phase; Z66 Do not resuscitate; Z95.1 Presence of aortocoronary bypass graft; Z95.5 Presence of coronary angioplasty implant and graft; Z99.81 Dependence on supplemental oxygen; Z79.01 Long term (current) use of anticoagulants; Z79.82 Long term (current) use of aspirin; Z79.84 Long term (current) use of oral hypoglycemic drugs; Z79.890 Hormone replacement therapy; Z79.899 Other long term (current) drug therapy; Z87.891 Personal history of nicotine dependence
CPT/HCPCS: 36415; 36569; 36600; 71045; 76705; 80048; 80053; 80076; 81001; 82105; 82140; 82248; 82803; 82962; 83036; 83735; 83880; 84100; 84145; 84439; 84443; 84481; 85025; 85027; 85610; 85730; 86140; 86850; 86900; 86901; 86920; 86922; 87040; 87070; 87086; 87088; 87205; 87449; 87633; 87635; 87641; 92526; 92610; 92612; 93306; 94640; 94660; 94668; 94762; 97163; 97166; 97530; 97802; J7040; J7050; P9016; P9047; A4216; J0248; J1940